=== PATIENT | male | born 1970 | race Caucasian/White ===

== ENCOUNTER 2018-04-29 15:50 | Inpatient (IN) ==
[2018-04-29] MEDS ORDERED: Acetaminophen 325 MG Tablet PO ONE (16:26)
[2018-04-29] MEDS ORDERED: Labetalol HCl Inj 100 MG/20 ML Vial IV.PUSH ONE ×2 (16:26→18:18)
[2018-04-29 16:37] LABS: Baso # (Auto) 0.2 th/mm3 (0.0-0.2); Baso % (Auto) 2.1 % (0.0-2.0); Eos # (Auto) 0.1 th/mm3 (0.0-0.4); Hemoglobin 16.6 gm/dL (13.0-17.0); Lymph # (Auto) 1.8 th/mm3 (1.0-4.8); Lymph % (Auto) 23.5 % (9.0-44.0); Mean Corpuscular HGB Conc 34.6 % (32.0-36.0); Mean Corpuscular Hemoglobin 32.8 pg (27.0-34.0); Mean Corpuscular Volume 94.8 fL (80.0-100.0); Mean Platelet Volume 9.1 fL (7.0-11.0); Mono # (Auto) 0.6 th/mm3 (0.0-0.9); Mono % (Auto) 8.1 % (0.0-8.0); Neut % (Auto) 65.3 % (16.0-70.0); Platelet Count 253 th/mm3 (150-450); Red Blood Count 5.07 mil/mm3 (4.50-5.90); Red Cell Distribution Width 12.5 % (11.6-17.2); White Blood Count 7.7 th/mm3 (4.0-11.0)
[2018-04-29 16:48] LABS: Chloride 101 meq/L (98-107); Potassium 3.4 meq/L (3.5-5.1); Sodium 137 meq/L (136-145)
--- NOTE | 2018-04-29 16:48 | CT ---
EXAM DATE: 04/29/2018 4:44 PM EST AGE/SEX: 47 years / Male INDICATIONS: Head ache. Loss of vision for 20 minutes. CLINICAL DATA: This is the patient's initial encounter. Patient reports that signs and symptoms have been present for 1 day and indicates a pain score of 5/10. MEDICAL/SURGICAL HISTORY: Hypertension. None. RADIATION DOSE: 58.75 CTDI (mGy) COMPARISON: No prior exams available for comparison. TECHNIQUE: CT of the head without contrast. Using automated exposure control and adjustment of the mA and/or kV according to patient size, radiation dose was kept as low as reasonably achievable to ob tain optimal diagnostic quality images. DICOM format image data is available electronically for revi ew and comparison. FINDINGS: Cerebrum: The ventricles are normal for age. No evidence of midline shift, mass lesion, hemorrhage or acute infarction. No extraaxial fluid collections are seen. Posterior Fossa: The cerebellum and brainstem are intact. The 4th ventricle is midline. The cerebe llopontine angle is unremarkable. Extracranial: The visualized portion of the orbits is intact. Skull: The calvaria is intact. No evidence of skull fracture. CONCLUSION: 1. Unremarkable examination. . . Electronically signed by: Salinas Spencer MD Board Certified Radiologist 04/29/2018 4:46 PM EST
[2018-04-29 16:50] LABS: Calcium 9.5 mg/dL (8.5-10.1)
[2018-04-29 16:51] LABS: Anion Gap 9 meq/L (5-15); Blood Urea Nitrogen 11 mg/dL (7-18); Carbon Dioxide 27.1 meq/L (21.0-32.0); Glucose,Random 80 mg/dL (74-106)
--- NOTE | 2018-04-29 16:52 | ED ---
HPI General Chief complaint: Hypertension Stated complaint: high BP/ lost sight for 20 seconds Time Seen by Provider: 04/29/18 16:01 Source: patient and family Mode of arrival: ambulatory Limitations: no limitations History of Present Illness HPI narrative: Patient is a 47-year-old male, past medical history significant for hypertension, compliant with his medications, and a chronic tooth infection for which he is on amoxicillin, who presents with complaint of headache and transient loss of vision. He states that he was relaxed after 4 beers and riding in the car when all of a sudden he lost vision in his left eye. It was painless and lasted approximately 20 seconds. He was able to perceive light but nothing else at that time. It then completely resolved. He did notice a slight mild headache which has gradually worsened since that time. He is not having any vision changes at this time and only complains of a headache. No nausea no vomiting. No eye pain. He has taken all of his antihypertensives today. Onset (ago): minute(s) Location: head and eyes Radiation: non-radiation Severity: moderate Quality: aching Pain Consistency: constant Relieving factors: none Exacerbating factors: none Associated symptoms: Reports other Treatments prior to arrival: Reports none Related Data Home Medications Medication Instructions Recorded Confirmed [facility] 1295 IM DAILY 04/29/18 amoxicillin 500 mg PO TID 04/29/18 04/29/18 tadalafil 5 mg PO DAILY 04/29/18 04/29/18 telmisartan-hydrochlorothiazid 1 tab PO DAILY 04/29/18 04/29/18 testosterone enanthate mg SUBCUT QTUTH 04/29/18 Allergies Allergy/AdvReac Type Severity Reaction Status Date / Time No Known Allergies Allergy Verified 04/29/18 16:19 Review of Systems ROS: all other systems reviewed are negative [facility] Medical History Medical History Hypertension (Acute) Surgical History Surgical History No history of previous surgery (Acute) Social History Social History Substance History: No History of Abuse Smoking Status: Never smoker How Often Do You Have a Drink Containing Alcohol: 4 or more times a week Recent Travel in [facility] within the Last 8 Weeks: No Recent Out of Country Travel within the Last 8 Weeks: No Immunization History Tetanus Immunization: <5 Years Exam Narrative Exam Narrative: GENERAL: Well-appearing male in no acute respiratory distress SKIN: Focused skin assessment warm/dry. No rashes. HEAD: Atraumatic. Normocephalic. EYES: Pupils equal and round. No scleral icterus. No injection or drainage. ENT: No nasal bleeding or discharge. Mucous membranes pink and moist. NECK: Trachea midline. No JVD. CARDIOVASCULAR: Regular rate and rhythm. No murmur appreciated. Intact and equal peripheral pulses. RESPIRATORY: No accessory muscle use. Clear to auscultation. Breath sounds equal bilaterally. GASTROINTESTINAL: Abdomen soft, non-tender, nondistended. Hepatic and splenic margins not palpable. MUSCULOSKELETAL: No obvious deformities. No clubbing. No cyanosis. No edema. NEUROLOGICAL: Awake and alert. No obvious cranial nerve deficits. Motor within normal limits. Normal sensation. No visual field deficits. Normal speech. PSYCHIATRIC: Appropriate mood and affect; insight and judgment normal. Course Initial Documented Vital Signs Temperature 97.5 F L 04/29/18 16:00 Pulse Rate 130 H 04/29/18 16:00 Respiratory Rate 18 04/29/18 16:00 Blood Pressure 225/127 H 04/29/18 16:00 Pulse Oximetry 99 04/29/18 16:00 Last Documented Vital Signs Temperature 97.5 F L 04/29/18 16:00 Pulse Rate 96 H 04/29/18 17:02 Respiratory Rate 16 04/29/18 17:02 Blood Pressure 148/97 H 04/29/18 17:02 Pulse Oximetry 97 04/29/18 17:02 Medical Decision Making [facility] Narrative Medical decision making narrative: Patient is a 47-year-old male who presents with complaint of transient painless vision loss for about 20 seconds earlier today. He has a headache and is hypertensive on arrival but is neurologically intact. Blood pressure was in the 220s on arrival and he was given 10 mg of labetalol after which his blood pressure dropped precipitously down to the 140s and his headache started to improve. CT of the head was unremarkable. Labs were also unremarkable. He will be admitted to the hospital for further evaluation and management for this TIA/amaurosis fugax. Medical Screen Exam Complete: Yes Emergency Medical Condition: Yes Differential Diagnosis Differential Diagnosis: Differential diagnosis includes but is not limited to amaurosis fugax, hypertensive urgency, central retinal artery occlusion. Medical Records Medical records reviewed: Yes I reviewed the patient's medical records. Lab Data Lab results reviewed: Yes I reviewed the patient's lab results. Result diagrams: 04/29/18 16:20 04/29/18 16:20 Lab Results 04/29/18 04/29/18 Range/Units 16:20 16:20 CBC w Diff Auto diff final WBC 7.7 (4.0-11.0) th/mm3 RBC 5.07 (4.50-5.90) mil/mm3 Hgb 16.6 (13.0-17.0) gm/dL Hct 48.0 (39.0-51.0) % MCV 94.8 (80.0-100.0) fL MCH 32.8 (27.0-34.0) pg MCHC 34.6 (32.0-36.0) % RDW 12.5 (11.6-17.2) % Plt Count 253 (150-450) th/mm3 MPV 9.1 (7.0-11.0) fL Neut % (Auto) 65.3 (16.0-70.0) % Lymph % (Auto) 23.5 (9.0-44.0) % [place] % (Auto) 8.1 H (0.0-8.0) % Eos % (Auto) 1.0 (0.0-4.0) % Baso % (Auto) 2.1 H (0.0-2.0) % Neut # (Auto) 5.0 (1.8-7.7) th/mm3 Lymph # (Auto) 1.8 (1.0-4.8) th/mm3 [place] # (Auto) 0.6 (0.0-0.9) th/mm3 Eos # (Auto) 0.1 (0.0-0.4) th/mm3 Baso # (Auto) 0.2 (0.0-0.2) th/mm3 WBC Differential . Differential Comment . Sodium 137 (136-145) meq/L Potassium 3.4 L (3.5-5.1) meq/L Chloride 101 (98-107) meq/L Carbon Dioxide 27.1 (21.0-32.0) meq/L Anion Gap 9 (5-15) meq/L BUN 11 (7-18) mg/dL Creatinine 1.00 (0.60-1.30) mg/dL Estimated GFR 79 L (>89) mL/min Random Glucose 80 (74-106) mg/dL Calcium 9.5 (8.5-10.1) mg/dL Imaging Data Attestation: I personally reviewed and interpreted this imaging study as follows : Radiologist's impression: Head CT 04/29/18 16:26 CONCLUSION: 1. Unremarkable examination. . . Discharge Plan Discharge Disposition Patient Disposition: ED Admit(ED Internal Use Only) Discharge Condition Condition: Stable Discharge Order Discharge Orders: ED Use Only Admit Order (Routine); Ordered 04/29/18 Ordered By: Rose Marie Troy Discharge Details Diagnosis: Amaurosis fugax of left eye, Hypertensive urgency Physicians Team ED Provider: Rose Marie Troy Primary Care Provider: UNKNOWN, Attending Provider: Magdy Bess Discharge Interventions Interventions: Vital Signs Last Done: 04/29/18 17:02 Status ED Status: Admitted Patient
[2018-04-29 16:54] LABS: Glomerular Filtration Rate 79 mL/min (>89)
[2018-04-29] MEDS ORDERED: Dextrose 50% in Water 50 ML Vial IV.PUSH PRN (17:40)
--- NOTE | 2018-04-29 18:09 | P.HPIM ---
History of Present Illness Primary Care Physician: UNKNOWN Chief Complaint: Loss of vision in left eye History of Present Illness: 47-year-old man with a past medical history of hypertension currently on Telmisartan-HCTZ presented to the hospital for evaluation of sudden loss of vision in the left eye and a sensation of seeing stars in that left eye. Patient states, secondary to a history of chronic tooth infection he was at the dental office when he first noted a transient loss of vision in the left eye associated with headache. However, later on when he was driving the transient loss of vision in the left eye return without any improvement and he had a feeling of seen*and eyes. Denies any slurred speech. There was no upper or lower extremity weakness or paresthesia. Patient states the vision change and loss was painless. He has no chest pain or shortness of breath. When he initially presented in the ED, patient has BP elevated in the range of 225/127, and states this may have been secondary to whitecoat hypertension however it improved with labetalol push x1. Inpatient Certification Inpatient Certification: I certify that the inpatient services were ordered in accordance with Medicare regulations governing the order. This includes certification that hospital inpatient services are reasonable and necessary and in the case of services not specified as inpatient-only under 42 CFR 419.22(n), that they are appropriately provided as inpatient services in accordance to with the 2-midnight benchmark under 43 CFR 412.3(e) Estimated Total Length of Stay (Days): 2 Plans for Post Hospital Care: Not yet determined Review of Systems Review of Systems: all other systems reviewed are negative [facility] Medical History Medical History Hypertension (Acute) Surgical History Surgical History No history of previous surgery (Acute) Social History Social History Substance History: No History of Abuse Smoking Status: Never smoker How Often Do You Have a Drink Containing Alcohol: 4 or more times a week Recent Travel in [facility] within the Last 8 Weeks: No Recent Out of Country Travel within the Last 8 Weeks: No Immunization History Tetanus Immunization: <5 Years Medications and Allergies Allergies Allergy/AdvReac Type Severity Reaction Status Date / Time No Known Allergies Allergy Verified 04/29/18 16:19 Home Medications Medication Instructions Recorded Confirmed Type c 1295 IM DAILY 04/29/18 History amoxicillin 500 mg PO TID 04/29/18 04/29/18 History tadalafil 5 mg PO DAILY 04/29/18 04/29/18 History telmisartan-hydrochlorothiazid 1 tab PO DAILY 04/29/18 04/29/18 History testosterone enanthate mg SUBCUT QTUTH 04/29/18 History Active Medications: Active Medications Aspirin (Aspirin) 325 mg PO DAILY MAIK Dextrose (D50w Vial) 50 ml IV.PUSH UNSCH PRN PRN Reason: PER HYPOGLYCEMIA PROTOCOL Enalaprilat (Vasotec Inj) 1.25 mg IV.PUSH Q4H PRN PRN Reason: For SBP > 220 or DBP > 120 Glucagon (Glucagon Inj) 1 mg OTHER UNSCH PRN PRN Reason: for Hypoglycemia Protocol Insulin Aspart (Novolog Insulin Correctional Sugar Inj) 0 unit SQ ACHS MAIK; Protocol Sodium Chloride (Ns Flush) 2 ml IV.FLUSH PRN PRN PRN Reason: FLUSH AFTER USING IV ACCESS Sodium Chloride (Ns Flush) 2 ml IV.FLUSH BID MAIK Sodium Chloride (Ns Flush) 2 ml IV.FLUSH PRN PRN PRN Reason: FLUSH AFTER USING IV ACCESS Physical Exam Vital signs: Vital Signs 04/29/18 16:00 04/29/18 16:13 04/29/18 16:39 Temperature 97.5 F L Pulse Rate 130 H 115 H 103 H Respiratory Rate 18 16 16 Blood Pressure 225/127 H 212/114 H 210/104 H Pulse Oximetry 99 99 99 04/29/18 16:41 04/29/18 17:02 Temperature Pulse Rate 96 H Respiratory Rate 16 Blood Pressure 148/97 H Pulse Oximetry 99 97 Intake & Output 04/28/18 04/29/18 04/29/18 18:59 06:59 18:59 Weight 87.3 kg Narrative: GENERAL: NAD SKIN: Warm and dry. HEAD: Atraumatic. Normocephalic. EYES: Pupils equal and round. No scleral icterus. No injection or drainage. ENT: No nasal bleeding or discharge. Mucous membranes pink and moist. NECK: Trachea midline. No JVD. CARDIOVASCULAR: Regular rate and rhythm. RESPIRATORY: No accessory muscle use. Clear to auscultation. Breath sounds equal bilaterally. GASTROINTESTINAL: Abdomen soft, non-tender, nondistended. Hepatic and splenic margins not palpable. MUSCULOSKELETAL: Extremities without clubbing, cyanosis, or edema. No obvious deformities. NEUROLOGICAL: Awake and alert. No obvious cranial nerve deficits. Motor grossly within normal limits. Five out of 5 muscle strength in the arms and legs. Normal speech. PSYCHIATRIC: Appropriate mood and affect; insight and judgment normal. Results Labs CBC & Chem 7: 04/29/18 16:20 04/29/18 16:[address] 04/29/18 16:26 CONCLUSION: 1. Unremarkable examination. . . Caprini VTE Risk Assessment Caprini VTE Risk Assessment: No/Low Risk (score <= 1) Caprini Risk Assessment Model: Point Value = 1 Point Value = 2 Point Value = 3 Point Value = 5 Age 41-60 Minor surgery BMI > 25 kg/m2 Swollen legs Varicose veins or History of unexplained or recurrent spontaneous Oral contraceptives or hormone replacement Sepsis (< 1 month) Serious lung disease, including pneumonia (< 1 month) Abnormal pulmonary function Acute myocardial infarction Congestive heart failure (< 1 month) History of inflammatory bowel disease Medical patient at bed rest Age 61-74 Arthroscopic surgery Major open surgery (> 45 min) Laparoscopic surgery (> 45 min) Malignancy Confined to bed (> 72 hours) Immobilizing plaster cast Central venous access Age >= 75 History of VTE Family history of VTE Factor V Leiden Prothrombin [id number] Lupus anticoagulant Anticardiolipin antibodies Elevated serum homocysteine Heparin-induced thrombocytopenia Other congenital or acquired thrombophilia Stroke (< 1 month) Elective arthroplasty Hip, pelvis, or leg fracture Acute spinal cord injury (< 1 month) Prophylaxis Regimen: Total Risk Factor Score Risk Level Prophylaxis Regimen 0-1 Low Early ambulation 2 Moderate Order ONE of the following: *Sequential Compression Device (SCD) *Heparin 5000 units SQ BID 3-4 Higher Order ONE of the following medications: *Heparin 5000 units SQ TID *Enoxaparin/Lovenox 40 mg SQ daily (WT < 150 kg, CrCl > 30 mL/min) *Enoxaparin/Lovenox 30 mg SQ daily (WT < 150 kg, CrCl > 10-29 mL/min) *Enoxaparin/Lovenox 30 mg SQ BID (WT < 150 kg, CrCl > 30 mL/min) AND/OR *Sequential Compression Device (SCD) 5 or more Highest Order ONE of the following medications: *Heparin 5000 units SQ TID (Preferred with Epidurals) *Enoxaparin/Lovenox 40 mg SQ daily (WT < 150 kg, CrCl > 30 mL/min) *Enoxaparin/Lovenox 30 mg SQ daily (WT < 150 kg, CrCl > 10-29 mL/min) *Enoxaparin/Lovenox 30 mg SQ BID (WT < 150 kg, CrCl > 30 mL/min) AND *Sequential Compression Device (SCD) Assessment and Plan Plan 47-year-old man with Hypertensive malignancy Labetalol 10 mg IV x1 in the ED with significant improvement of BP Resume oral antihypertensive medication when permissive hypertension is discontinue Amaurosis fugax TIA versus ischemic CVA Treat per ischemic stroke protocol Initial head CAT scan unremarkable Check brain MRI/MRA and neck CTA Check 2D echo, lipid profile and hemoglobin A1c Start aspirin 325 mg daily Allow for permissive hypertension Neurology consultation pending Hypertension Allow for permissive hypertension DVT prophylaxis: Bilateral SCDs
[2018-04-29 18:33] LABS: Activated Partial Thrombo Time 28.5 sec (23.4-31.7); Prothrombin Time 9.9 sec (9.8-11.6)
[2018-04-29 18:35] LABS: Creatine Kinase 162 U/L (39-308)
--- NOTE | 2018-04-29 18:41 | CT ---
EXAM DATE: 04/29/2018 6:31 PM EST AGE/SEX: 47 years / Male INDICATIONS: Confusion and difficulty speaking. Right sided facial droop after CTA Neck. CLINICAL DATA: This is the patient's subsequent encounter. Patient reports that signs and symptoms h ave been present for 1 day and indicates a pain score of 0/10. MEDICAL/SURGICAL HISTORY: Hypertension. None. RADIATION DOSE: 57.89 CTDI (mGy) COMPARISON: HPO, CTA NECK W CONTRAST W 3D, 04/29/2018. . TECHNIQUE: CT of the head without contrast. Using automated exposure control and adjustment of the mA and/or kV according to patient size, radiation dose was kept as low as reasonably achievable to ob tain optimal diagnostic quality images. DICOM format image data is available electronically for revi ew and comparison. FINDINGS: Cerebrum: There is no acute intracranial hemorrhage, mass effect or shift. No hydrocephalus. There i s some residual contrast. See CTA report. Posterior Fossa: The cerebellum and brainstem are intact. The 4th ventricle is midline. The cerebe llopontine angle is unremarkable. Extracranial: The visualized portion of the orbits is intact. Skull: The calvaria is intact. No evidence of skull fracture. CONCLUSION: 1. No acute intracranial abnormalities. 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 Report was called by Dr. Cast to Dr. Villatoro at 6:30 PM. Electronically signed by: Clayton Cast MD Board Certified Radiologist 04/29/2018 6:40 PM EST
--- NOTE | 2018-04-29 18:56 | CT ---
EXAM DATE: 04/29/2018 6:47 PM EST AGE/SEX: 47 years / Male INDICATIONS: Elevated blood pressure and temporary loss of vision. Evaluate for thrombosis. CLINICAL DATA: This is the patient's subsequent encounter. Patient reports that signs and symptoms h ave been present for 1 day and indicates a pain score of 0/10. MEDICAL/SURGICAL HISTORY: Hypertension. None. RADIATION DOSE: 42.78 CTDI (mGy) COMPARISON: HPO, CTA STROKE ALERT NECK W CONTRAST W 3D, 04/29/2018. . TECHNIQUE: Volumetric scanning was performed using a multirow detector CT scanner during bolus infus ion of 75 ml Omnipaque 350 (iohexol) nonionic water-soluble contrast as a single exam dose. The da ta was postprocessed with a variety of visualization algorithms including full-volume maximum intensi ty projection, multiplanar sliding thin-slab reformation, curved-planar reformation, and surface-rend ering techniques. Using automated exposure control and adjustment of the mA and/or kV according to p atient size, radiation dose was kept as low as reasonably achievable to obtain optimal diagnostic gabriela lity images. DICOM format image data is available electronically for review and comparison. FINDINGS: Aortic Arch: There is a three-vessel origin of the great vessels from the aorta. No evidence of ost ial narrowing Right Carotid: The common carotid artery is intact. The carotid bulb has a normal configuration wit hout ulceration or narrowing. The internal carotid artery lumen is smooth without stenosis. The ext ernal carotid artery is intact. Left Carotid: There is acute occlusion of the left ICA. The occlusion begins approximately 2 cm ceph alad to the origin and extends through the intracavernous carotid artery. There is good reconstitutio n of the supraclinoid ICA via anterior communicating artery and posterior communicating artery collat eralization. See the CT of the brain reported separately. Vertebrals: The vertebral arteries have a symmetric diameter. No stenotic lesions are seen. Percent stenosis is calculated using the diameter of the stenotic region over the diameter of the nor mal distal internal carotid artery. CONCLUSION: 1. 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 2. The right carotid artery and both vertebral arteries are patent. Electronically signed by: Valerio Hoyos MD Board Certified Radiologist 04/29/2018 6:55 PM EST
[2018-04-29 19:13] LABS: C-Reactive Protein 1.64 mg/dL (0.00-0.30)
[2018-04-29] MEDS: Heparin Drip 25,000 UNIT/250 ML BAG IV.CONT PRN (19:39)
[2018-04-29] MEDS: Sod Chloride 0.9% Inj 1,000 ML IV.CONT SCH (19:46)
[2018-04-29] MEDS ORDERED: Sodium Chlor 0.9% Inj 250 ML IV.SIG SCH (20:00)
[2018-04-29 20:02] LABS: Bilirubin,Urine Negative (Negative); Clarity,Urine Clear (Clear); Color,Urine Yellow (Yellw/Straw); Glucose,Urine (UA) Negative (Negative); Leukocyte Esterase,Urine Negative (Negative); Nitrite,Urine Negative (Negative); PH,Urine 7.5 (5.0-8.5); Specific Gravity,Urine Less/Equal 1.005 (1.002-1.035); Urobilinogen,Urine 0.2 mg/dL (Less than 2)
[2018-04-29 20:06] LABS: Bacteria,Urine Rare /hpf; WBC,Urine 0-5 /hpf (0-5)
[2018-04-29 20:09] LABS: Cannabinoid Screen,Urine Neg (Neg)
[2018-04-29 20:17] LABS: Amphetamine Screen,Urine Neg (Neg)
[2018-04-29 20:19] LABS: Barbiturate Screen,Urine Neg (Neg)
[2018-04-29 20:22] LABS: Cocaine Screen,Urine Neg (Neg)
[2018-04-29 20:37] LABS: Free T4 (Free Thyroxine) 0.96 ng/dL (0.76-1.46)
[2018-04-29 20:42] LABS: Opiate Screen,Urine Neg (Neg)
--- NOTE | 2018-04-29 21:09 | MB ---
cc: West Villatoro MD, Saud E MD DATE: 04/29/2018 HISTORY OF PRESENT ILLNESS: The patient is a 47-year-old right-handed man with hypertension without other significant past medical history, has had a recent tooth infection; however, had a fever last , which was approximately 4 days ago. Nevertheless earlier today he had an episode of vision loss in the left eye, which was transient and came into the emergency room. His exam was normal. Went down the CAT scan and came back and a stroke alert was called at approximately 6:30 tonight due to he was aphasic and a right facial droop and got on the Glofox-neuro and his aphasia had cleared. REVIEW OF SYSTEMS: He denies any diabetes, hypercholesterolemia, NV, CABG, cardiac arrhythmia, stent, angioplasty, atrial fibrillation, Coumadin, renal, hepatic or pulmonary disease, thyroid disease, lupus, ulcer, cancer, seizure or stroke. SOCIAL HISTORY: Nonsmoker, has about 15 glasses of wine a week. Lives with his . FAMILY HISTORY: Negative for cancer, seizure, stroke. MEDICATIONS: He does not take an aspirin a day, not on any blood thinners. He has been on hydrochlorothiazide, telmisartan, tadalafil, amoxicillin recently, some testosterone. PHYSICAL EXAMINATION: VITAL SIGNS: Sinus rhythm as high as 210/104, as low as 148/97, 16, 140, afebrile in the CAT scanner on Gl[employer]. NEUROLOGIC: Visual ross are full. Face is symmetric. Tongue was midline. He had normal strength in upper and lower extremities bilaterally. Speech is fluent. He is not aphasic. He follows commands well. He can repeat normally and gives a good history. LABORATORY DATA: CBC is normal. White count is normal. Basic metabolic profile is normal. Troponins negative. CPK is normal. Coags are normal. CAT scan of the brain was negative. CTA of the neck shows an occlusion of the left internal carotid artery with some reconstitution well of the middle cerebral artery. CAT scan of the brain negative including post-episode. Looking at the CTA, it does appear he has good flow in the right distal middle cerebral artery but on the left it appears that he probably has an occlusion distally in the left M2 region with poor flow in the branches distally. IMPRESSION: He has had 2 more spells of the aphasia. I talked with Dr. Negron, and also Dr. Brewer up in [facility]. Considering the problem, it is probably more of a hemodynamic problem at this point and Dr. Brewer did not think the IV TPA probably would get through to that clot region. As such, we decided to put him on IV heparin. Keep his head a bit flat, IV fluids, try to get his collaterals to kick in regard. This certainly is a possibility that the occlusion could have occurred about 3 hours prior to his admission here when he had the transient monocular blindness and probably did at that time. We will bring him up to the [facility], do a CT perfusion. I also talked with Dr. Hoyos, the interventional radiologist. He did not think trying to go up and pull the clot out of the carotid was a good idea, it would just make him worse. MD KRISTYN Agee/claus/erika , 07:21 PM , 07:30 PM
[2018-04-29] MEDS ORDERED: Gadobutrol PF 10 MMOL/10 ML Vial (for RAD) IV.SIG ONE (21:26)
--- NOTE | 2018-04-29 21:50 | MR ---
EXAM DATE: 04/29/2018 9:41 PM EST AGE/SEX: 47 years / Male INDICATIONS: CVA. Left eye blindness for about one minute. CLINICAL DATA: This is the patient's initial encounter. Patient reports that signs and symptoms have been present for 1 day and indicates a pain score of 2/10. MEDICAL/SURGICAL HISTORY: Hypertension. . Hand sx. COMPARISON: No prior exams available for comparison. TECHNIQUE: Multiplanar, multisequence examination of the brain was performed without and with 9 ml Ga davist (gadobutrol) contrast as a single exam dose. FINDINGS: There is a faint area of signal abnormality in the left hemisphere predominantly involving the left p eriventricular white matter in the posterior left frontal region measuring up to about 2.2 cm in diam eter characteristic of an acute infarct. There is no mass effect or shift. No hydrocephalus. No other areas of acute infarction identified. No associated hemorrhage is seen. No abnormal enhancement is seen postcontrast. No sellar mass. CONCLUSION: 1. Small infarct on the left measuring up to around 2.2 cm in diameter involving predominantly the d eep white matter of the posterior left frontal lobe extending towards the motor cortex. No associated hemorrhage or mass effect. No abnormal enhancement. Electronically signed by: Clayton Cast MD Board Certified Radiologist 04/29/2018 9:49 PM EST
--- NOTE | 2018-04-29 21:54 | MR ---
EXAM DATE: 04/29/2018 9:41 PM EST AGE/SEX: 47 years / Male INDICATIONS: CVA. Left eye blindness. CLINICAL DATA: This is the patient's initial encounter. Patient reports that signs and symptoms have been present for 1 day and indicates a pain score of 3/10. MEDICAL/SURGICAL HISTORY: Hypertension. . Hand sx. COMPARISON: HPO, MR HEAD W & W/O CONTRAST, 04/29/2018. . TECHNIQUE: 3D [id number] MRA was performed. Source images, multiplanar STS MIP, and 3D volum e MIP reconstructions were reviewed. FINDINGS: There is occlusion of the left internal carotid artery. The visualized portions of the right internal carotid artery are patent. The bilateral anterior and middle cerebral arteries are patent without si gnificant stenosis or occlusion. Anterior communicating artery is patent. There are patent posterior communicating arteries bilaterally. There is asymmetrically decreased opacification of the proximal p ortion of the right posterior cerebral artery. The distal branch of the right posterior cerebral tom ry is patent. The left posterior cerebral artery fills via a patent basilar artery. The uppermost por tions of the vertebral arteries are patent. No aneurysm formation is noted. CONCLUSION: 1. Occluded left internal carotid artery. 2. Patent anterior and middle cerebral arteries bilaterally. 3. Decreased opacification of the proximal portion of the right posterior cerebral artery compared t o the left but normal filling of the distal branch of the right posterior cerebral artery. 4. Patent posterior communicating arteries bilaterally. Electronically signed by: Matty Saxena MD Board Certified Radiologist 04/29/2018 9:53 PM EST
--- NOTE | 2018-04-29 22:20 | CT ---
EXAM DATE: 04/29/2018 10:03 PM EST AGE/SEX: 47 years / Male INDICATIONS: Stroke alert; right sided facial droop, confusion, and dysphasia. CLINICAL DATA: This is the patient's initial encounter. Patient reports that signs and symptoms have been present for 1 day and indicates a pain score of 0/10. MEDICAL/SURGICAL HISTORY: Hypertension. None. RADIATION DOSE: 217.58 CTDI (mGy) ; High dose protocol COMPARISON: HPO, MRA HEAD W/O CONTRAST, 04/29/2018. . TECHNIQUE: CT of the head after intravenous administration of 49 ml Visipaque 320 (iodixanol) nonio talib water-soluble contrast as a single exam dose. Using automated exposure control and adjustment of the mA and/or kV according to patient size, radiation dose was kept as low as reasonably achievable to obtain optimal diagnostic quality images. DICOM format image data is available electronically for review and comparison. FINDINGS: 1. CBF (<30%) Volume (ml): 0 2. Perfusion (Tmax>6.0s) Volume (ml): 98 ml 3. Mismatch Volume (ml) (Tmax>6.0 - CBF): 98 ml CONCLUSION: Physiological brain perfusion parameters with RAPID analysis as above. The decision for consideration of therapy is multi factorial and multi disciplinary relying on subjec tive and objective clinical data. This data is not construed or intended to be the sole determinant of treatment eligibility. Electronically signed by: Clayton Cast MD Board Certified Radiologist 04/29/2018 10:19 PM EST
[2018-04-29] MEDS: Insulin NovoLOG Aspart Correctional Sugar Inj SQ SCH (22:30)
--- NOTE | 2018-04-29 22:57 | P.CONCC ---
History of Present Illness Service: Critical care medicine Consult date: 04/30/18 Requesting Physician: Rose Marie Troy Reason for Consult: stroke Primary Care Provider: UNKNOWN Chief Complaint: Loss of vision in left eye History of Present Illness: This is a 47-year-old male who is otherwise previously healthy with the exception of a diagnosis of low testosterone. He presented with new onset visual loss which resolved spontaneously. He presented to [place] emergency department. He was diagnosed with amaurosis fugax. While he was in the emergency department, he became acutely aphasic. Stroke alert was called. CT head was negative for acute bleed. 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 At that time symptoms initially resolved. Discussion between Dr. Villatoro and Dr. Hoyos with interventional radiology was that any attempt at endovascular intervention for the left ICA occlusion would likely shower emboli and because of far worse neurologic devastating injury and conservative management. He was started on heparin infusion. He was transferred to [facility] in [place]. CT perfusion demonstrates a significant mismatch between infarct and at risk brain tissue. On my evaluation, on arrival to the intensive care unit at [facility], the patient has persistent mild expressive aphasia. Receptive leg which is intact. He does complain of new right arm sensory loss. He has good bilateral strength. I again discussed the case with Dr. Villatoro and Dr. Hoyos, who both agree that conservative management is warranted. After discussion with Dr. Villatoro, goal blood pressure goals are 180-220 systolic. Review of systems for this patient is very difficult due to his aphasia, but limited review of systems is negative for chest pain, shortness of breath, fever, chills. Review of Systems All other systems reviewed negative except as stated in HPI (Limited by aphasia) PMFSH - History History Provided By: Patient, Significant Other - Medical History Medical History: Medical History (Last Reviewed 04/30/18 @ 00:06 by Chriss Iglesias MD) Hypertension - Surgical History Surgical History: Surgical History (Last Reviewed 04/30/18 @ 00:06 by Chriss Iglesias MD) No history of previous surgery - Family History Family History: Family History (Last Reviewed 04/30/18 @ 00:06 by Chriss Iglesias MD) Other Diabetes - Social History I have reviewed the patient's Social History: Yes - Tobacco History Second Hand Smoke Exposure: No Smoking Status: Never smoker - Alcohol History How Often Do You Have a Drink Containing Alcohol: 4 or more times a week - Substance Use History Substance History: No History of Abuse - Travel History Recent Travel in the [place] Within the Last 8 Weeks: No Recent Travel Out of the Country Within the Last 8 Weeks: No - Immunization History Tetanus Immunization: Unable to Assess Hx Influenza Vaccine This Season: No Medications and Allergies Active Medications: Active Medications Dextrose (D50w Vial) 50 ml IV.PUSH UNSCH PRN PRN Reason: PER HYPOGLYCEMIA PROTOCOL Enalaprilat (Vasotec Inj) 1.25 mg IV.PUSH Q4H PRN PRN Reason: For SBP > 220 or DBP > 120 Last Admin: 04/29/18 19:46 Dose: 1.25 mg Glucagon (Glucagon Inj) 1 mg OTHER UNSCH PRN PRN Reason: for Hypoglycemia Protocol Sodium Chloride (Ns Inj) 1,000 mls @ 70 mls/hr IV.CONT .[id number] [facility] Last Infusion: 04/29/18 20:17 Dose: 70 mls/hr Heparin Sodium/Dextrose (Heparin/D5w 25,000 U/250 Ml) 25,000 unit in 250 mls @ 10 mls/hr IV.CONT TITRATE PRN; Protocol PRN Reason: Per Protocol Last Titration: 04/29/18 20:18 Dose: 1,000 units/hr, 10 mls/hr Insulin Aspart (Novolog Insulin Correctional Sugar Inj) 0 unit SQ ACHS [facility]; Protocol Last Admin: 04/29/18 22:30 Dose: Not Given Sodium Chloride (Ns Flush) 2 ml IV.FLUSH BID [facility] Sodium Chloride (Ns Flush) 2 ml IV.FLUSH PRN PRN PRN Reason: FLUSH AFTER USING IV ACCESS Warfarin Sodium (Coumadin) 5 mg PO DAILY@1600 [facility] Allergies Allergy/AdvReac Type Severity Reaction Status Date / Time No Known Allergies Allergy Verified 04/29/18 16:19 Home Medications Medication Instructions Recorded Confirmed Type Cjc 1295 IM DAILY 04/29/18 History amoxicillin 500 mg PO TID 04/29/18 04/29/18 History tadalafil 5 mg PO DAILY 04/29/18 04/29/18 History telmisartan-hydrochlorothiazid 1 tab PO DAILY 04/29/18 04/29/18 History testosterone enanthate mg SUBCUT QTUTH 04/29/18 History Physical Exam Vital signs: Vital Signs 04/29/18 16:00 04/29/18 16:13 04/29/18 16:39 Temperature 36.4 C L Pulse Rate 130 H 115 H 103 H Respiratory Rate 18 16 16 Blood Pressure 225/127 H 212/114 H 210/104 H Pulse Oximetry 99 99 99 04/29/18 16:41 04/29/18 17:02 04/29/18 18:17 Temperature Pulse Rate 96 H 140 H Respiratory Rate 16 16 Blood Pressure 148/97 H 173/135 H Pulse Oximetry 99 97 04/29/18 18:47 04/29/18 19:53 04/29/18 20:09 Temperature Pulse Rate 126 H 122 H Respiratory Rate 16 18 Blood Pressure 265/106 H 223/122 H Pulse Oximetry 97 98 98 04/29/18 20:13 Temperature Pulse Rate 120 H Respiratory Rate 18 Blood Pressure 207/114 H Pulse Oximetry 100 Intake & Output 04/29/18 04/29/18 04/30/18 06:59 18:59 06:59 Intake Total 325 / 325 Balance 325 / 325 Weight 87.3 kg 83.4 kg Intake: IV 325 / 325 Heparin/D5W 25,000 U/250 mL 25, 40 / 40 000 unit In 250 ml @ As Directed 10 mls/hr IV.CONT TITRATE PRN Rx#:[id number] NS Inj 1,000 ML @ 70 mls/hr IV. 35 / 35 CONT .[id number] [facility] Rx#: [id number] NS Inj 250 ML @ 500 mls/hr IV. 250 / 250 SIG BOLUS [facility]IK Rx#:[id number] Other: Weight On Admission 83.4 kg Narrative: GENERAL: Middle-age male, lying in bed, in distress due to his neuro deficits HEENT: Noted right facial droop. Atraumatic. Pupils 3 mm, equal, round, reactive, conjugate. Mucous membranes are moist NECK: Trachea is midline. There is no JVD. CHEST: Equal chest rise. Room air. No accessory muscle use. CARDIOVASCULAR: Normal rate, regular rhythm. Sinus by telemetry. Pressures 205 systolic on my evaluation. ABDOMEN: Soft, nontender, nondistended. No guarding. MUSCULOSKELETAL: Pulses 2+. No peripheral edema. NEUROLOGICAL: RASS 0. CAM -. GCS 15. Noted mild expressive aphasia. Receptive language intact. Noted right facial droop. The remainder the cranial nerves are intact. Musculoskeletal strength 5/5 in bilateral upper and lower extremities both proximal and distal muscle groups. Sensation is grossly decreased in the right upper extremity, but grossly normal in the remainder of the extremities. Noted mild dysarthria in addition to the aphasia. Gait not assessed. Assessment and Plan - Assessment and Plan Plan: Assessment: 47-year-old male with acute left ICA thrombosis and associated CVA. Critically ill. Admit to ICU. Maintain cerebral perfusion with goal systolic blood pressure 180 - 220 mmHg. If he clinically decompensates, will repeat CTA head neck, but agree that likely any intervention will worsen his neurologic outcome. He is critically ill with high risk for devastating stroke. Acute CVA Acute dysarthria Acute sensory deficit RUE Acute aphasia Acute Left ICA occlusion - neurology: Dr. Villatoro consulted - IR: Dr. Hoyos consulted and following peripherally - 2d echo - lipids - a1c - statin - anticoag work up initiated - PT/OT/ST - nursing bedside swallow eval - script coordinator consult - prvf - [facility] flat - telemetry - heparin drip - q1h neuro checks Hypertensive Emergency - permissive hypertension, goal sbp 180 - 220 mmHg - phenylephrine and nicardipine infusions at needed for goal sbp. SSI SCDs Admit to ICU. Critically ill. This patient remains critically ill with one or more organ systems which are or may become a threat to life. I have spent in excess of 48 minutes discontinuously in the care and management of this patient. This time is exclusive of procedures, and includes, but is not limited to, evaluation of the patient, review of the medical record, discussions with family, consultants, nursing staff, or respiratory therapy, and documentation in the medical record.
[2018-04-29] MEDS ORDERED: Potassium Chloride Liq 20 MEQ/15 ML UDC PO PRN ×2 (23:06)
[2018-04-29] MEDS ORDERED: Acetaminophen 325 MG Tablet PO PRN (23:06)
[2018-04-29] MEDS ORDERED: Magnesium Oxide 400 MG Tablet PO PRN (23:06)
[2018-04-29] MEDS ORDERED: Potassium Phosphate Inj 30 MMOL in Sodium Chlor 0.9% Inj 250 ML IV.SIG PRN (23:06)
[2018-04-29] MEDS ORDERED: Sodium Phosphate Inj 30 MMOL in Sodium Chlor 0.9% Inj 250 ML IV.SIG PRN (23:06)
[2018-04-29] MEDS ORDERED: Magnesium Sulfate Inj 4 GM in Sodium Chlor 0.9% Inj 92 ML IV.SIG PRN (23:06)
[2018-04-29] MEDS ORDERED: Potassium Chlor 40 mEq Premix 40 MEQ/100 ML PIGGYBACK IV.SIG PRN ×2 (23:06)
[2018-04-29] MEDS ORDERED: Potassium Phosphate 500 MG Soluble Tablet PO PRN ×2 (23:06)
[2018-04-29] MEDS ORDERED: Potassium Chlor 20 mEq Premix 20 MEQ/100 ML PIGGYBACK IV.SIG PRN (23:06)
[2018-04-29] MEDS ORDERED: Magnesium Sulfate Inj 2 GM in Sodium Chlor 0.9% Inj 96 ML IV.SIG PRN (23:06)
[2018-04-29] MEDS ORDERED: niCARdipine Inj 25 MG in Sodium Chlor 0.9% Inj 240 ML IV.CONT PRN (23:10)
[2018-04-30] MEDS: Potassium Chlor 20 mEq Premix 20 MEQ/100 ML PIGGYBACK IV.SIG PRN ×2 (00:56→03:30)
[2018-04-30] MEDS: Chlorhexidine Gluconate 2% 1 Pack (2 Cloths) TOPICAL SCH (03:30)
[2018-04-30] MEDS ORDERED: Chlorhexidine Gluconate 2% 1 Pack (2 Cloths) TOPICAL PRN (04:00)
[2018-04-30 05:07] LABS: Baso # (Auto) 0.1 th/mm3 (0.0-0.2); Baso % (Auto) 0.7 % (0.0-2.0); Eos % (Auto) 0.5 % (0.0-4.0); Hematocrit 47.3 % (39.0-51.0); Hemoglobin 16.4 gm/dL (13.0-17.0); Lymph # (Auto) 1.6 th/mm3 (1.0-4.8); Lymph % (Auto) 19.1 % (9.0-44.0); Mean Corpuscular HGB Conc 34.6 % (32.0-36.0); Mean Corpuscular Hemoglobin 33.7 pg (27.0-34.0); Mean Corpuscular Volume 97.3 fL (80.0-100.0); Mean Platelet Volume 8.9 fL (7.0-11.0); Mono # (Auto) 0.8 th/mm3 (0.0-0.9); Mono % (Auto) 9.2 % (0.0-8.0); Neut % (Auto) 70.5 % (16.0-70.0); Platelet Count 228 th/mm3 (150-450); Red Blood Count 4.86 mil/mm3 (4.50-5.90); Red Cell Distribution Width 13.3 % (11.6-17.2); White Blood Count 8.5 th/mm3 (4.0-11.0)
[2018-04-30 05:25] LABS: Anion Gap 8 meq/L (5-15); Blood Urea Nitrogen 8 mg/dL (7-18); Calcium 8.2 mg/dL (8.5-10.1); Carbon Dioxide 25.2 meq/L (21.0-32.0); Chloride 107 meq/L (98-107); Glomerular Filtration Rate Greater Than 89 mL/min (>89); Glucose,Random 99 mg/dL (74-106); Magnesium 1.9 mg/dL (1.5-2.5); Phosphorus 2.5 mg/dL (2.5-4.9); Potassium 3.8 meq/L (3.5-5.1); Sodium 140 meq/L (136-145)
[2018-04-30 07:19] LABS: Prothrombin Time 10.2 sec (9.8-11.6)
[2018-04-30] MEDS ORDERED: Insulin NovoLIN Regular Correctional Sugar Inj SQ SCH (08:00)
--- NOTE | 2018-04-30 08:14 | P.PNNEU ---
Subjective Active Medications: Active Medications Acetaminophen (Tylenol) 650 mg PO Q6H PRN PRN Reason: TEMPERATURE > 101 F Albuterol (Duoneb Neb (Prn)) 1 ampul NEB Q2HR NEB PRN PRN Reason: WHEEZING Atorvastatin Calcium (Lipitor) 80 mg PO DAILY [facility] Chlorhexidine Gluconate (Chlorhexidine 2% Cloth) 3 pack TOPICAL DAILY@0400 [facility] Stop: 05/05/18 03:59 Last Admin: 04/30/18 03:30 Dose: 3 pack Chlorhexidine Gluconate (Chlorhexidine 2% Cloth) 3 pack TOPICAL DAILY@0400 PRN PRN Reason: Extra cloth needed Stop: 05/05/18 03:59 Dextrose (D50w Vial) 50 ml IV.PUSH UNSCH PRN PRN Reason: PER HYPOGLYCEMIA PROTOCOL Enalaprilat (Vasotec Inj) 1.25 mg IV.PUSH Q4H PRN PRN Reason: For SBP > 220 or DBP > 120 Last Admin: 04/29/18 19:46 Dose: 1.25 mg Famotidine (Pepcid) 20 mg PO BID [facility] Glucagon (Glucagon Inj) 1 mg OTHER UNSCH PRN PRN Reason: for Hypoglycemia Protocol Sodium Chloride (Ns Inj) 1,000 mls @ 70 mls/hr IV.CONT .[id number] [facility] Last Infusion: 04/29/18 20:17 Dose: 70 mls/hr Heparin Sodium/Dextrose (Heparin/D5w 25,000 U/250 Ml) 25,000 unit in 250 mls @ 10 mls/hr IV.CONT TITRATE PRN; Protocol PRN Reason: Per Protocol Last Titration: 04/30/18 07:26 Dose: 1,100 units/hr, 11 mls/hr Potassium Chloride (Kcl 40 Meq Premix Inj) 40 meq in 100 mls @ 25 mls/hr IV.SIG Q2H PRN PRN Reason: For Potassium 2.8 - 3.2 mEq/L Potassium Chloride (Kcl 20 Meq Premix Inj) 20 meq in 100 mls @ 50 mls/hr IV.SIG Q2H PRN PRN Reason: For Potassium 3.3 - 3.5 mEq/L Last Infusion: 04/30/18 05:28 Dose: Infused Potassium Chloride (Kcl 40 Meq Premix Inj) 40 meq in 100 mls @ 25 mls/hr IV.SIG UNSCH PRN PRN Reason: For Potassium 3.3 - 3.5 mEq/L Sodium Phosphate 30 mmol/ (Sodium Chloride) 260 mls @ 42 mls/hr IV.SIG UNSCH PRN PRN Reason: For Phosphorus < 2.5 mg/dL Potassium Phosphate 30 mmol/ (Sodium Chloride) 260 mls @ 42 mls/hr IV.SIG UNSCH PRN PRN Reason: SEE LABEL COMMENTS Magnesium Sulfate 4 gm/ Sodium (Chloride) 100 mls @ 50 mls/hr IV.SIG UNSCH PRN PRN Reason: For Magnesium 0.9 - 1.1 mg/dL Potassium Chloride (Kcl 20 Meq Premix Inj) 20 meq in 100 mls @ 50 mls/hr IV.SIG Q2H PRN PRN Reason: For Potassium 2.8 - 3.2 mEq/L Magnesium Sulfate 2 gm/ Sodium (Chloride) 100 mls @ 50 mls/hr IV.SIG UNSCH PRN PRN Reason: For Magnesium 1.2 - 1.6 mg/dL Nicardipine HCl 25 mg/ Sodium (Chloride) 250 mls @ 50 mls/hr IV.CONT TITRATE PRN; Protocol PRN Reason: Per Protocol Phenylephrine HCl 40 mg/ (Sodium Chloride) 500 mls @ 30 mls/hr IV.CONT TITRATE PRN; Protocol PRN Reason: Per Protocol Insulin Aspart (Novolog Insulin Correctional Sugar Inj) 0 unit SQ ACHS [facility]; Protocol Last Admin: 04/29/18 22:30 Dose: Not Given Insulin Human Regular (Novolin R Correctional Sugar Inj) 0 units SQ ACHS [facility]; Protocol Magnesium Oxide (Mag-Ox) 800 mg PO UNSCH PRN PRN Reason: For Magnesium 1.2 - 1.6 mg/dL Ondansetron HCl (Zofran Inj) 4 mg IV.PUSH Q6H PRN PRN Reason: NAUSEA OR VOMITING Potassium Chloride (Kcl Liq) 40 meq PO UNSCH PRN PRN Reason: Potassium level 3.3-3.5 mEq/L Potassium Chloride (Kcl Liq) 40 meq PO UNSCH PRN PRN Reason: POTASSIUM LESS THAN 3.5 Potassium Phosphate (K-Phos Original) 2,000 mg PO Q4H PRN PRN Reason: Phosphorus Less Than 2.5 mg/dL Potassium Phosphate (K-Phos Original) 2,000 mg PO UNSCH PRN PRN Reason: SEE LABEL COMMENTS Sodium Chloride (Ns Flush) 2 ml IV.FLUSH BID [facility] Last Admin: 04/29/18 23:22 Dose: Not Given Sodium Chloride (Ns Flush) 2 ml IV.FLUSH PRN PRN PRN Reason: FLUSH AFTER USING IV ACCESS Terbutaline Sulfate (Brethine Inj) 1 mg SQ UNSCH PRN PRN Reason: For Extravasation Warfarin Sodium (Coumadin) 5 mg PO DAILY@1600 [facility] Last Admin: 04/29/18 23:40 Dose: Not Given Allergies/Adverse Reactions: Allergies Allergy/AdvReac Type Severity Reaction Status Date / Time No Known Allergies Allergy Verified 04/29/18 16:19 Physical Exam Vital signs: Vital Signs 04/29/18 16:00 04/29/18 16:13 04/29/18 16:39 Temperature 97.5 F L Pulse Rate 130 H 115 H 103 H Respiratory Rate 18 16 16 Blood Pressure 225/127 H 212/114 H 210/104 H Pulse Oximetry 99 99 99 04/29/18 16:41 04/29/18 17:02 04/29/18 18:17 Temperature Pulse Rate 96 H 140 H Respiratory Rate 16 16 Blood Pressure 148/97 H 173/135 H Pulse Oximetry 99 97 04/29/18 18:47 04/29/18 19:53 04/29/18 20:09 Temperature Pulse Rate 126 H 122 H Respiratory Rate 16 18 Blood Pressure 265/106 H 223/122 H Pulse Oximetry 97 98 98 04/29/18 20:13 04/29/18 22:00 04/29/18 23:00 Temperature Pulse Rate 120 H 125 H 118 H Respiratory Rate 18 24 28 H Blood Pressure 207/114 H 193/112 H 211/103 H Pulse Oximetry 100 97 97 04/29/18 23:30 04/30/18 00:00 04/30/18 01:00 Temperature 98.4 F Pulse Rate 110 H 115 H 121 H Respiratory Rate 26 H 26 H 35 H Blood Pressure 199/103 H 212/100 H 207/98 H Pulse Oximetry 96 97 98 04/30/18 02:00 04/30/18 02:19 04/30/18 03:00 Temperature Pulse Rate 90 110 H 112 H Respiratory Rate 21 28 H Blood Pressure 190/117 H 196/100 H Pulse Oximetry 94 L 98 04/30/18 04:00 04/30/18 05:00 04/30/18 06:00 Temperature 98.0 F Pulse Rate 107 H 111 H 90 Respiratory Rate 22 25 H 18 Blood Pressure 184/99 H 190/107 H 195/118 H Pulse Oximetry 97 97 95 04/30/18 06:15 04/30/18 07:00 Temperature Pulse Rate 111 H 106 H Respiratory Rate 21 Blood Pressure 184/100 H Pulse Oximetry 98 Intake & Output 04/29/18 04/30/18 04/30/18 18:59 06:59 18:59 Intake Total 525 / 525 Output Total 1000 / 1000 Balance -475 / -475 Weight 87.3 kg 83.4 kg Intake: IV 525 / 525 Heparin/D5W 25,000 U/250 mL 25, 40 / 40 000 unit In 250 ml @ As Directed 10 mls/hr IV.CONT TITRATE PRN Rx#:[id number] NS Inj 1,000 ML @ 70 mls/hr IV. 35 / 35 CONT .[id number] [facility] Rx#: [id number] KCl 20 mEq Premix Inj 20 meq In 200 / 200 100 ml @ 50 mls/hr IV.SIG Q2H PRN Rx#:[id number] NS Inj 250 ML @ 500 mls/hr IV. 250 / 250 SIG BOLUS [facility] Rx#:[id number] Output: Urine 1000 / 1000 Other: # Voids 6 Date of Last Bowel Movement 04/29/18 04/29/18 Weight On Admission 83.4 kg Narrative: sr 185-200/ r droop and exp aphasia severe can understand a lot oc commands 5/5 bue and ble awake alert Objective Laboratory Results - last 24 hr 04/29/18 04/29/18 04/29/18 16:20 16:20 16:20 CBC w Diff Auto diff final WBC 7.7 RBC 5.07 Hgb 16.6 Hct 48.0 MCV 94.8 MCH 32.8 MCHC 34.6 RDW 12.5 Plt Count 253 MPV 9.1 Neut % (Auto) 65.3 Lymph % (Auto) 23.5 [place] % (Auto) 8.1 H Eos % (Auto) 1.0 Baso % (Auto) 2.1 H Neut # (Auto) 5.0 Lymph # (Auto) 1.8 [place] # (Auto) 0.6 Eos # (Auto) 0.1 Baso # (Auto) 0.2 WBC Differential . Differential Comment . ESR PT 9.9 INR 1.0 APTT 28.5 Fibrinogen 419 H Sodium 137 Potassium 3.4 L Chloride 101 Carbon Dioxide 27.1 Anion Gap 9 BUN 11 Creatinine 1.00 Estimated GFR 79 L POC Glucose Random Glucose 80 Calcium 9.5 Phosphorus Magnesium Total Creatine Kinase 162 Troponin I Less than 0.02 L C-Reactive Protein Vitamin B12 TSH Free T4 Urine Color Urine Clarity Urine pH Ur Specific [place] Urine Protein Urine Glucose (UA) Urine Ketones Urine Occult Blood Urine Nitrate Urine Bilirubin Urine Urobilinogen Ur Leukocyte Esterase Urine WBC Urine Bacteria Micro UA Comment Ur Microscopic Review Urine Culture Comments Nasal Screen MRSA (PCR) Urine Opiates Screen Ur Barbiturates Screen Ur Amphetamines Screen U Benzodiazepines Scrn Urine Cocaine Screen U Cannabinoids Screen Blood Type Blood Type Recheck Antibody Screen 04/29/18 04/29/18 04/29/18 18:25 18:25 18:25 CBC w Diff WBC RBC Hgb Hct MCV MCH MCHC RDW Plt Count MPV Neut % (Auto) Lymph % (Auto) [place] % (Auto) Eos % (Auto) Baso % (Auto) Neut # (Auto) Lymph # (Auto) [place] # (Auto) Eos # (Auto) Baso # (Auto) WBC Differential Differential Comment ESR 4 PT INR APTT Fibrinogen Sodium Potassium Chloride Carbon Dioxide Anion Gap BUN Creatinine Estimated GFR POC Glucose Random Glucose Calcium Phosphorus Magnesium Total Creatine Kinase Troponin I C-Reactive Protein 1.64 H Vitamin B12 Greater than 2000 H TSH 2.520 Free T4 0.96 Urine Color Urine Clarity Urine pH Ur Specific [place] Urine Protein Urine Glucose (UA) Urine Ketones Urine Occult Blood Urine Nitrate Urine Bilirubin Urine Urobilinogen Ur Leukocyte Esterase Urine WBC Urine Bacteria Micro UA Comment Ur Microscopic Review Urine Culture Comments Nasal Screen MRSA (PCR) Urine Opiates Screen Ur Barbiturates Screen Ur Amphetamines Screen U Benzodiazepines Scrn Urine Cocaine Screen U Cannabinoids Screen Blood Type O Positive Blood Type Recheck Required Antibody Screen Negative 04/29/18 04/29/18 04/29/18 18:26 19:55 19:55 CBC w Diff WBC RBC Hgb Hct MCV MCH MCHC RDW Plt Count MPV Neut % (Auto) Lymph % (Auto) [place] % (Auto) Eos % (Auto) Baso % (Auto) Neut # (Auto) Lymph # (Auto) [place] # (Auto) Eos # (Auto) Baso # (Auto) WBC Differential Differential Comment ESR PT INR APTT Fibrinogen Sodium Potassium Chloride Carbon Dioxide Anion Gap BUN Creatinine Estimated GFR POC Glucose 87 Random Glucose Calcium Phosphorus Magnesium Total Creatine Kinase Troponin I C-Reactive Protein Vitamin B12 TSH Free T4 Urine Color Yellow Urine Clarity Clear Urine pH 7.5 Ur Specific [place] Less/equal 1.005 Urine Protein Negative Urine Glucose (UA) Negative Urine Ketones Trace H Urine Occult Blood Negative Urine Nitrate Negative Urine Bilirubin Negative Urine Urobilinogen 0.2 Ur Leukocyte Esterase Negative Urine WBC 0-5 Urine Bacteria Rare H Micro UA Comment Culture not ind Ur Microscopic Review Microscopic reviewed Urine Culture Comments Culture not ind Nasal Screen MRSA (PCR) Urine Opiates Screen Neg Ur Barbiturates Screen Neg Ur Amphetamines Screen Neg U Benzodiazepines Scrn Neg Urine Cocaine Screen Neg U Cannabinoids Screen Neg Blood Type Blood Type Recheck Antibody Screen 04/29/18 04/30/18 04/30/18 22:30 04:46 04:46 CBC w Diff WBC 8.5 RBC 4.86 Hgb 16.4 Hct 47.3 MCV 97.3 MCH 33.7 MCHC 34.6 RDW 13.3 Plt Count 228 MPV 8.9 Neut % (Auto) 70.5 H Lymph % (Auto) 19.1 [place] % (Auto) 9.2 H Eos % (Auto) 0.5 Baso % (Auto) 0.7 Neut # (Auto) 6.0 Lymph # (Auto) 1.6 [place] # (Auto) 0.8 Eos # (Auto) 0.0 Baso # (Auto) 0.1 WBC Differential . Differential Comment Auto diff final ESR PT INR APTT Fibrinogen Sodium 140 Potassium 3.8 Chloride 107 Carbon Dioxide 25.2 Anion Gap 8 BUN 8 Creatinine 0.85 Estimated GFR Greater than 89 POC Glucose Random Glucose 99 Calcium 8.2 L D Phosphorus 2.5 Magnesium 1.9 Total Creatine Kinase Troponin I C-Reactive Protein Vitamin B12 TSH Free T4 Urine Color Urine Clarity Urine pH Ur Specific [place] Urine Protein Urine Glucose (UA) Urine Ketones Urine Occult Blood Urine Nitrate Urine Bilirubin Urine Urobilinogen Ur Leukocyte Esterase Urine WBC Urine Bacteria Micro UA Comment Ur Microscopic Review Urine Culture Comments Nasal Screen MRSA (PCR) Not detected Urine Opiates Screen Ur Barbiturates Screen Ur Amphetamines Screen U Benzodiazepines Scrn Urine Cocaine Screen U Cannabinoids Screen Blood Type Blood Type Recheck Antibody Screen 04/30/18 04/30/18 06:20 06:20 CBC w Diff WBC RBC Hgb Hct MCV MCH MCHC RDW Plt Count MPV Neut % (Auto) Lymph % (Auto) [place] % (Auto) Eos % (Auto) Baso % (Auto) Neut # (Auto) Lymph # (Auto) [place] # (Auto) Eos # (Auto) Baso # (Auto) WBC Differential Differential Comment ESR PT 10.2 INR 1.0 APTT 33.1 H Fibrinogen Sodium Potassium Chloride Carbon Dioxide Anion Gap BUN Creatinine Estimated GFR POC Glucose Random Glucose Calcium Phosphorus Magnesium Total Creatine Kinase Troponin I C-Reactive Protein Vitamin B12 TSH Free T4 Urine Color Urine Clarity Urine pH Ur Specific [place] Urine Protein Urine Glucose (UA) Urine Ketones Urine Occult Blood Urine Nitrate Urine Bilirubin Urine Urobilinogen Ur Leukocyte Esterase Urine WBC Urine Bacteria Micro UA Comment Ur Microscopic Review Urine Culture Comments Nasal Screen MRSA (PCR) Urine Opiates Screen Ur Barbiturates Screen Ur Amphetamines Screen U Benzodiazepines Scrn Urine Cocaine Screen U Cannabinoids Screen Blood Type Blood Type Recheck Antibody Screen Review/Management - Review/Management Plan: imp he waxed and waned several times last pnm and at mri seemed to be talking nl i dw tech last pm some time later he seemed to worsen again and this am speech sign affected mri small area of cva left mca ct perfusion larger area at risk mra the left m2 clot seems to have cleared but after trifercation he is missing some mca branch flow on hep ivf keep bp up [place] i dw no hx neck trauma coumadin when taking po fu echo holter hypercoag may do sagar when stable hx tooth infection fu blood cx and echo cards
[2018-04-30] MEDS: Insulin NovoLOG Aspart Correctional Sugar Inj SQ SCH (08:41)
[2018-04-30] MEDS ORDERED: Aspirin 325 MG Tablet PO SCH (09:00)
[2018-04-30] MEDS: Famotidine 20 MG Tablet PO SCH ×2 (09:14→20:42)
[2018-04-30 10:24] LABS: Cholesterol 164 mg/dL (120-200)
[2018-04-30 10:27] LABS: Chol/HDL Ratio 2.86 Ratio; Creatine Kinase 129 U/L (39-308); HDL Cholesterol 57.2 mg/dL (40.0-60.0); LDL Cholesterol,Calculated 93 mg/dL (0-99); Triglycerides 69 mg/dL (42-150)
[2018-04-30] MEDS: Sod Chloride 0.9% Inj 1,000 ML IV.CONT SCH (10:46)
--- NOTE | 2018-04-30 12:04 | P.PNCC ---
Subjective Subjective Remarks/Hospital Course: This is a 47-year-old male who is otherwise previously healthy with the exception of a diagnosis of low testosterone. He presented with new onset visual loss which resolved spontaneously. He presented to [place] emergency department. He was diagnosed with amaurosis fugax. While he was in the emergency department, he became acutely aphasic. Stroke alert was called. CT head was negative for acute bleed. 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 At that time symptoms initially resolved. Discussion between Dr. Villatoro and Dr. Hoyos with interventional radiology was that any attempt at endovascular intervention for the left ICA occlusion would likely shower emboli and because of far worse neurologic devastating injury and conservative management. He was started on heparin infusion. He was transferred to [facility] in [place]. CT perfusion demonstrates a significant mismatch between infarct and at risk brain tissue. On my evaluation, on arrival to the intensive care unit at [facility], the patient has persistent mild expressive aphasia. Receptive leg which is intact. He does complain of new right arm sensory loss. He has good bilateral strength. I again discussed the case with Dr. Villatoro and Dr. Hoyos, who both agree that conservative management is warranted. After discussion with Dr. Villatoro, goal blood pressure goals are 180-220 systolic. Review of systems for this patient is very difficult due to his aphasia, but limited review of systems is negative for chest pain, shortness of breath, fever, chills. 04/30: Systolic blood pressure 180s. Expressive aphasia persists but he appears to understand commands. Mismatched perfusion noted on study. Continue with permissive hypertension. Objective Vital Signs / I&O: Vital Signs 04/29/18 16:00 04/29/18 16:13 04/29/18 16:39 Temperature 97.5 F L Pulse Rate 130 H 115 H 103 H Respiratory Rate 18 16 16 Blood Pressure 225/127 H 212/114 H 210/104 H Pulse Oximetry 99 99 99 04/29/18 16:41 04/29/18 17:02 04/29/18 18:17 Temperature Pulse Rate 96 H 140 H Respiratory Rate 16 16 Blood Pressure 148/97 H 173/135 H Pulse Oximetry 99 97 04/29/18 18:47 04/29/18 19:53 04/29/18 20:09 Temperature Pulse Rate 126 H 122 H Respiratory Rate 16 18 Blood Pressure 265/106 H 223/122 H Pulse Oximetry 97 98 98 04/29/18 20:13 04/29/18 22:00 04/29/18 23:00 Temperature Pulse Rate 120 H 125 H 118 H Respiratory Rate 18 24 28 H Blood Pressure 207/114 H 193/112 H 211/103 H Pulse Oximetry 100 97 97 04/29/18 23:30 04/30/18 00:00 04/30/18 01:00 Temperature 98.4 F Pulse Rate 110 H 115 H 121 H Respiratory Rate 26 H 26 H 35 H Blood Pressure 199/103 H 212/100 H 207/98 H Pulse Oximetry 96 97 98 04/30/18 02:00 04/30/18 02:19 04/30/18 03:00 Temperature Pulse Rate 90 110 H 112 H Respiratory Rate 21 28 H Blood Pressure 190/117 H 196/100 H Pulse Oximetry 94 L 98 04/30/18 04:00 04/30/18 05:00 04/30/18 06:00 Temperature 98.0 F Pulse Rate 107 H 111 H 90 Respiratory Rate 22 25 H 18 Blood Pressure 184/99 H 190/107 H 195/118 H Pulse Oximetry 97 97 95 04/30/18 06:15 04/30/18 07:00 04/30/18 08:00 Temperature 98.0 F Pulse Rate 111 H 106 H 115 H Respiratory Rate 21 26 H Blood Pressure 184/100 H 185/107 H Pulse Oximetry 98 97 04/30/18 08:15 04/30/18 09:00 04/30/18 09:14 Temperature Pulse Rate 108 H 112 H Respiratory Rate 23 27 H Blood Pressure 179/107 H 199/110 H Pulse Oximetry 98 98 98 04/30/18 10:00 04/30/18 10:18 04/30/18 11:00 Temperature Pulse Rate 110 H 107 H 112 H Respiratory Rate 25 H 26 H 27 H Blood Pressure 177/92 H 189/101 H 187/105 H Pulse Oximetry 98 96 97 Intake & Output 04/29/18 04/30/18 04/30/18 18:59 06:59 18:59 Intake Total 525 / 525 1000 / 1000 Output Total 1000 / 1000 Balance -475 / -475 1000 / 1000 Weight 87.3 kg 83.4 kg Intake: IV 525 / 525 1000 / 1000 Heparin/D5W 25,000 U/250 mL 25, 40 / 40 000 unit In 250 ml @ As Directed 10 mls/hr IV.CONT TITRATE PRN Rx#:[id number] NS Inj 1,000 ML @ 70 mls/hr IV. 35 / 35 1000 / 1000 CONT .[id number] MAIK Rx#: [id number] KCl 20 mEq Premix Inj 20 meq In 200 / 200 100 ml @ 50 mls/hr IV.SIG Q2H PRN Rx#:[id number] NS Inj 250 ML @ 500 mls/hr IV. 250 / 250 SIG BOLUS MAIK Rx#:[id number] Output: Urine 1000 / 1000 Other: # Voids 6 Date of Last Bowel Movement 04/29/18 04/29/18 Weight On Admission 83.4 kg Result Diagrams: 04/30/18 04:46 04/30/18 04:46 Objective Remarks: Narrative: GENERAL: Middle-age male, lying in bed, anxious HEENT: Persistent right facial droop. Atraumatic. Pupils 3 mm, equal, round, reactive, conjugate. Mucous membranes are moist NECK: Trachea is midline. Airway widely patent, no gurgling or obstructive noises. CHEST: Equal chest rise. Room air. No accessory muscle use. No adventitious sounds. CARDIOVASCULAR: Normal rate, regular rhythm. Sinus by telemetry. Pressures 185 systolic on my evaluation. ABDOMEN: Soft, nontender, nondistended. No guarding. Bowel sounds active. MUSCULOSKELETAL: Pulses 2+. No peripheral edema. NEUROLOGICAL: RASS 0. CAM -. GCS 15. Persistent expressive aphasia. Receptive language intact. Noted right facial droop. Musculoskeletal power 5/5 in bilateral upper and lower extremities both proximal and distal muscle groups. Assessment and Plan - Assessment and Plan Plan: Assessment: 47-year-old male with acute left ICA thrombosis and associated CVA. Critically ill. Admit to ICU. Maintain cerebral perfusion with goal systolic blood pressure 180 - 220 mmHg. If he clinically decompensates, will repeat CTA head neck, but agree that likely any intervention will worsen his neurologic outcome. He is critically ill with high risk for enlarging stroke. Acute CVA Acute dysarthria Acute sensory deficit RUE Acute aphasia Acute Left ICA occlusion - neurology: Dr. Villatoro consulted - IR: Dr. Hoyos consulted and following peripherally - 2d echo completed - lipid profile reviewed - a1c - statin initiated - anticoag work up initiated, heparin started - PT/OT/ST - nursing bedside swallow eval - environmental systems coordinator consult completed - mivf - HOB flat - telemetry, looking specifically for arrhythmia - heparin drip, convert to oral anticoagulant when approved by neurology service - q1h neuro checks Hypertensive Emergency - permissive hypertension, goal sbp 180 - 220 mmHg - phenylephrine and nicardipine infusions at needed for goal sbp. SSI SCDs Overall impression: Acute carotid occlusion left side with small infarct and considerably larger zone of jeopardy according to the brain perfusion study.. He remains critically ill with a new neurologic deficit and at risk for extension of his stroke. Critical care 40 minutes
[2018-04-30 12:35] LABS: Hematocrit 48.3 % (39.0-51.0); Hemoglobin 16.8 gm/dL (13.0-17.0); Mean Corpuscular HGB Conc 34.7 % (32.0-36.0); Mean Corpuscular Hemoglobin 33.9 pg (27.0-34.0); Mean Corpuscular Volume 97.6 fL (80.0-100.0); Mean Platelet Volume 9.3 fL (7.0-11.0); Platelet Count 230 th/mm3 (150-450); Red Blood Count 4.94 mil/mm3 (4.50-5.90); White Blood Count 7.5 th/mm3 (4.0-11.0)
[2018-04-30] MEDS: Heparin Drip 25,000 UNIT/250 ML BAG IV.CONT PRN (12:41)
--- NOTE | 2018-04-30 14:26 | MB ---
cc: Abner Zhao MD DATE: 04/30/2018 REASON FOR CONSULTATION: Transesophageal echocardiography. HISTORY OF PRESENT ILLNESS: The patient is a very pleasant 47-year-old white male with a history of hypertension, who was admitted to the hospital with acute neurological changes including transient left eye visual loss, transient aphasia, headache. Workup has revealed acute occlusion of the left internal carotid artery with MRI revealing left-sided CVA in the posterior frontal lobe region with a larger zone of jeopardy demonstrated by brain perfusion study. I have been asked to see the patient for transesophageal echocardiography to rule out endocarditis. The patient states he has had a tooth infection for most of the last 4 years, intermittently treated with antibiotics. He denies chest pain, shortness of breath, lightheadedness, syncope, near syncope, pedal edema, paroxysmal nocturnal dyspnea. Very, rarely, he experiences fleeting, fluttering palpitations. PAST MEDICAL HISTORY: Hypertension. PAST SURGICAL HISTORY: None. CARDIAC MEDICATIONS AT HOME: 1. Telmisartan/hydrochlorothiazide, unknown dose daily. ALLERGIES: NO KNOWN DRUG ALLERGIES. FAMILY HISTORY: The patient's father did undergo multiple coronary stents at age 68. SOCIAL HISTORY: The patient denies any history of alcohol or tobacco abuse. REVIEW OF SYSTEMS: As in history of present illness, otherwise negative or noncontributory. He also denies headache, abdominal pain, melena, dyspepsia, bright red blood per rectum, fevers. PHYSICAL EXAMINATION: VITAL SIGNS: His blood pressure 179/105 with a pulse of 107, respirations 18. GENERAL: He is a well-developed, well-nourished white male, in no acute distress. NECK: Jugular venous pressure is normal. Carotid pulses are 2+ bilaterally and without bruits. CHEST: Reveals clear lungs ross. CARDIAC: He has a regular rhythm and rate without S3, S4, or murmur. ABDOMEN: He has a soft, nontender abdomen. Bowel sounds are present. There is no definite hepatosplenomegaly. EXTREMITIES: Reveals no clubbing, cyanosis or edema. Peripheral pulses are normal throughout. There are no definite peripheral stigmata of endocarditis. DIAGNOSTIC DATA: EKG shows sinus tachycardia, otherwise normal EKG. LABORATORY DATA: Includes normal CBC, normal basic metabolic profile, total cholesterol 164, LDL 93, HDL 57, triglycerides 69. IMPRESSION: Acute cerebrovascular accident due to occlusion of the left internal carotid artery in this 47-year-old white male with a history of hypertension. I have been asked to see the patient for transesophageal echocardiography to rule out a cardiac source of embolism as well as endocarditis. Apparently, he has had a chronic tooth infection as well. His transthoracic echocardiogram is pending. Overall, I would agree with the need for a transesophageal echo. The nature of this procedure and the potential risks have been outlined to the patient. He agrees to proceed. RECOMMENDATIONS: Transesophageal echocardiography in 2 days. MD WHIT Patel/yaron , 01:35 PM , 01:42 PM [email or web address]
--- NOTE | 2018-04-30 14:54 | ECHRPT ---
Indication: cva/tia CONCLUSIONS Normal left ventricular size and wall thickness. The left ventricular systolic function is normal wi th an estimated ejection fraction in the range of 60-65%. Normal wall motion. Trace mitral valve regurgitation. There is trace tricuspid valve regurgitation. BP: / HR: Rhythm: MEASUREMENTS (Male / Female) Normal Values Technical Quality: 2D ECHO LV Diastolic Diameter PLAX 4.5 cm 4.2 - 5.9 / 3.9 - 5.3 cm LV Systolic Diameter PLAX 3.1 cm IVS Diastolic Thickness 0.9 cm 0.6 - 1.0 / 0.6 - 0.9 cm LVPW Diastolic Thickness 1.0 cm 0.6 - 1.0 / 0.6 - 0.9 cm LV Relative Wall Thickness 0.4 RV Internal Dim ED PLAX 3.2 cm LVOT Diameter 2.0 cm Aortic Root Diameter 2.3 cm LA Systolic Diameter LX 2.9 cm 3.0 - 4.0 / 2.7 - 3.8 cm M-MODE Aortic Root Diameter MM 3.1 cm LA Systolic Diameter MM 3.6 cm LA Ao Ratio MM 1.2 AV Cusp Separation MM 1.6 cm DOPPLER AV Peak Velocity 164.0 cm/s AV Peak Gradient 10.8 mmHg LVOT Peak Velocity 106.0 cm/s LVOT Peak Gradient 4.5 mmHg AV Area Cont Eq pk 2.0 cm Mitral E Point Velocity 81.4 cm/s Mitral A Point Velocity 71.6 cm/s Mitral E to A Ratio 1.1 LV E' Lateral Velocity 13.7 cm/s Mitral E to LV E' Lateral Ratio 5.9 LV E' Septal Velocity 12.0 cm/s Mitral E to LV E' Septal Ratio 6.8 TR Peak Velocity 288.0 cm/s TR Peak Gradient 33.2 mmHg Right Atrial Pressure 10.0 mmHg Pulmonary Artery Systolic Pressu 43.2 mmHg Right Ventricular Systolic Press 43.2 mmHg PV Peak Velocity 241.5 cm/s PV Peak Gradient 23.3 mmHg RVOT Peak Velocity 156.0 cm/s PV Area Cont Eq vti 2.8 cm PV Area Cont Eq pk 3.3 cm FINDINGS LEFT VENTRICLE Normal left ventricular size and wall thickness. The left ventricular systolic function is normal wi th an estimated ejection fraction in the range of 60-65%. Normal wall motion. RIGHT VENTRICLE Normal right ventricular size and systolic function. LEFT ATRIUM The left atrial size is normal. RIGHT ATRIUM The right atrial size is normal. ATRIAL SEPTUM Normal atrial septal thickness without atrial level shunting by limited color doppler interrogation. AORTA The aortic root and proximal ascending aorta are normal in size on limited imaging. MITRAL VALVE Trace mitral valve regurgitation. AORTIC VALVE Trileaflet aortic valve. No aortic valve stenosis or regurgitation. TRICUSPID VALVE There is trace tricuspid valve regurgitation. PULMONARY VALVE No pulmonary valve regurgitation or stenosis. VESSELS The inferior vena cava is normal in size. PERICARDIUM No pericardial effusion. Abner Zhao MD (Electronically Signed) Final Date:30 April 2018 14:54
--- NOTE | 2018-04-30 14:56 | OTSOAPIP ---
TIME SESSION COMPLETED: TREATMENT TIME: 0 MINS. CHART REVIEWED. NURSING REQUESTED TO HOLD TREATMENT PATIENT IS ON STRICT BED REST WITH HEAD OF BED STATUS. PATIENT NEUROLOGICAL SYMPTOMS ARE FLUCTUATING PLAN WILL SEE PATIENT NEXT TREATMENT Therapist: Alicia Sow Signature on file
[2018-04-30] MEDS: Phenylephrine Inj 40 MG in Sodium Chlor 0.9% Inj 496 ML IV.CONT PRN (18:09)
--- NOTE | 2018-04-30 19:52 | ECG ---
Date Performed: 04/29/2018 Time Performed: 18:56:45 PTAGE: 47 years EKG: SINUS TACHYCARDIA ABNORMAL RHYTHM ECG NO PREVIOUS TRACING DOCTOR: Elli Matute Interpretating Date/Time 04/30/2018 19:50:59
[2018-05-01] MEDS: Sod Chloride 0.9% Inj 1,000 ML IV.CONT SCH ×2 (00:04→16:16)
[2018-05-01] MEDS: Phenylephrine Inj 40 MG in Sodium Chlor 0.9% Inj 496 ML IV.CONT PRN ×4 (02:57→23:58)
[2018-05-01 04:07] LABS: Baso # (Auto) 0.1 th/mm3 (0.0-0.2); Baso % (Auto) 0.9 % (0.0-2.0); Eos # (Auto) 0.1 th/mm3 (0.0-0.4); Eos % (Auto) 0.9 % (0.0-4.0); Hematocrit 46.2 % (39.0-51.0); Hemoglobin 15.9 gm/dL (13.0-17.0); Lymph # (Auto) 3.5 th/mm3 (1.0-4.8); Lymph % (Auto) 32.7 % (9.0-44.0); Mean Corpuscular HGB Conc 34.4 % (32.0-36.0); Mean Corpuscular Hemoglobin 33.9 pg (27.0-34.0); Mean Corpuscular Volume 98.6 fL (80.0-100.0); Mean Platelet Volume 9.5 fL (7.0-11.0); Mono % (Auto) 9.5 % (0.0-8.0); Neut # (Auto) 6.1 th/mm3 (1.8-7.7); Platelet Count 274 th/mm3 (150-450); Red Blood Count 4.68 mil/mm3 (4.50-5.90); Red Cell Distribution Width 13.4 % (11.6-17.2); White Blood Count 10.8 th/mm3 (4.0-11.0)
[2018-05-01 04:12] LABS: Prothrombin Time 10.5 sec (9.8-11.6)
[2018-05-01 04:23] LABS: Anion Gap 9 meq/L (5-15); Blood Urea Nitrogen 7 mg/dL (7-18); Carbon Dioxide 23.8 meq/L (21.0-32.0); Chloride 107 meq/L (98-107); Glomerular Filtration Rate Greater Than 89 mL/min (>89); Glucose,Random 88 mg/dL (74-106); Sodium 140 meq/L (136-145)
[2018-05-01 04:24] LABS: Phosphorus 2.3 mg/dL (2.5-4.9)
[2018-05-01] MEDS: Chlorhexidine Gluconate 2% 1 Pack (2 Cloths) TOPICAL SCH (06:45)
[2018-05-01] MEDS: Heparin Drip 25,000 UNIT/250 ML BAG IV.CONT PRN (07:25)
--- NOTE | 2018-05-01 08:19 | P.PNNEU ---
Subjective Active Medications: Active Medications Acetaminophen (Tylenol) 650 mg PO Q6H PRN PRN Reason: TEMPERATURE > 101 F Albuterol (Duoneb Neb (Prn)) 1 ampul NEB Q2HR NEB PRN PRN Reason: WHEEZING Atorvastatin Calcium (Lipitor) 80 mg PO DAILY [facility] Last Admin: 04/30/18 09:14 Dose: 80 mg Chlorhexidine Gluconate (Chlorhexidine 2% Cloth) 3 pack TOPICAL DAILY@0400 [facility] Stop: 05/05/18 03:59 Last Admin: 05/01/18 06:45 Dose: Not Given Chlorhexidine Gluconate (Chlorhexidine 2% Cloth) 3 pack TOPICAL DAILY@0400 PRN PRN Reason: Extra cloth needed Stop: 05/05/18 03:59 Dextrose (D50w Vial) 50 ml IV.PUSH UNSCH PRN PRN Reason: PER HYPOGLYCEMIA PROTOCOL Enalaprilat (Vasotec Inj) 1.25 mg IV.PUSH Q4H PRN PRN Reason: For SBP > 220 or DBP > 120 Last Admin: 04/29/18 19:46 Dose: 1.25 mg Famotidine (Pepcid) 20 mg PO BID [facility] Last Admin: 04/30/18 20:42 Dose: 20 mg Glucagon (Glucagon Inj) 1 mg OTHER UNSCH PRN PRN Reason: for Hypoglycemia Protocol Sodium Chloride (Ns Inj) 1,000 mls @ 70 mls/hr IV.CONT .[id number] [facility] Last Admin: 05/01/18 00:04 Dose: 70 mls/hr Heparin Sodium/Dextrose (Heparin/D5w 25,000 U/250 Ml) 25,000 unit in 250 mls @ 10 mls/hr IV.CONT TITRATE PRN; Protocol PRN Reason: Per Protocol Last Admin: 05/01/18 07:25 Dose: 1,300 units/hr, 13 mls/hr Potassium Chloride (Kcl 40 Meq Premix Inj) 40 meq in 100 mls @ 25 mls/hr IV.SIG Q2H PRN PRN Reason: For Potassium 2.8 - 3.2 mEq/L Potassium Chloride (Kcl 20 Meq Premix Inj) 20 meq in 100 mls @ 50 mls/hr IV.SIG Q2H PRN PRN Reason: For Potassium 3.3 - 3.5 mEq/L Last Infusion: 04/30/18 05:28 Dose: Infused Potassium Chloride (Kcl 40 Meq Premix Inj) 40 meq in 100 mls @ 25 mls/hr IV.SIG UNSCH PRN PRN Reason: For Potassium 3.3 - 3.5 mEq/L Sodium Phosphate 30 mmol/ (Sodium Chloride) 260 mls @ 42 mls/hr IV.SIG UNSCH PRN PRN Reason: For Phosphorus < 2.5 mg/dL Potassium Phosphate 30 mmol/ (Sodium Chloride) 260 mls @ 42 mls/hr IV.SIG UNSCH PRN PRN Reason: SEE LABEL COMMENTS Magnesium Sulfate 4 gm/ Sodium (Chloride) 100 mls @ 50 mls/hr IV.SIG UNSCH PRN PRN Reason: For Magnesium 0.9 - 1.1 mg/dL Potassium Chloride (Kcl 20 Meq Premix Inj) 20 meq in 100 mls @ 50 mls/hr IV.SIG Q2H PRN PRN Reason: For Potassium 2.8 - 3.2 mEq/L Magnesium Sulfate 2 gm/ Sodium (Chloride) 100 mls @ 50 mls/hr IV.SIG UNSCH PRN PRN Reason: For Magnesium 1.2 - 1.6 mg/dL Nicardipine HCl 25 mg/ Sodium (Chloride) 250 mls @ 50 mls/hr IV.CONT TITRATE PRN; Protocol PRN Reason: Per Protocol Phenylephrine HCl 40 mg/ (Sodium Chloride) 500 mls @ 30 mls/hr IV.CONT TITRATE PRN; Protocol PRN Reason: Per Protocol Last Admin: 05/01/18 02:57 Dose: 120 mcg/min, 90 mls/hr Magnesium Oxide (Mag-Ox) 800 mg PO UNSCH PRN PRN Reason: For Magnesium 1.2 - 1.6 mg/dL Ondansetron HCl (Zofran Inj) 4 mg IV.PUSH Q6H PRN PRN Reason: NAUSEA OR VOMITING Potassium Chloride (Kcl Liq) 40 meq PO UNSCH PRN PRN Reason: Potassium level 3.3-3.5 mEq/L Potassium Chloride (Kcl Liq) 40 meq PO UNSCH PRN PRN Reason: POTASSIUM LESS THAN 3.5 Potassium Phosphate (K-Phos Original) 2,000 mg PO Q4H PRN PRN Reason: Phosphorus Less Than 2.5 mg/dL Potassium Phosphate (K-Phos Original) 2,000 mg PO UNSCH PRN PRN Reason: SEE LABEL COMMENTS Sodium Chloride (Ns Flush) 2 ml IV.FLUSH BID [facility] Last Admin: 04/30/18 20:43 Dose: 2 ml Sodium Chloride (Ns Flush) 2 ml IV.FLUSH PRN PRN PRN Reason: FLUSH AFTER USING IV ACCESS Terbutaline Sulfate (Brethine Inj) 1 mg SQ UNSCH PRN PRN Reason: For Extravasation Warfarin Sodium (Coumadin) 5 mg PO DAILY@1600 [facility] Last Admin: 04/30/18 16:12 Dose: 5 mg Allergies/Adverse Reactions: Allergies Allergy/AdvReac Type Severity Reaction Status Date / Time No Known Allergies Allergy Verified 04/29/18 16:19 Physical Exam Vital signs: Vital Signs 04/30/18 09:00 04/30/18 09:14 04/30/18 10:00 Temperature Pulse Rate 108 H 112 H 110 H Respiratory Rate 23 27 H 25 H Blood Pressure 179/107 H 199/110 H 177/92 H Pulse Oximetry 98 98 98 04/30/18 10:18 04/30/18 11:00 04/30/18 12:00 Temperature 99.2 F Pulse Rate 107 H 112 H 107 H Respiratory Rate 26 H 27 H 18 Blood Pressure 189/101 H 187/105 H 179/105 H Pulse Oximetry 96 97 97 04/30/18 12:17 04/30/18 13:00 04/30/18 14:00 Temperature Pulse Rate 110 H 92 H 103 H Respiratory Rate 27 H 20 21 Blood Pressure 192/108 H 206/86 H 207/158 H Pulse Oximetry 97 94 L 96 04/30/18 14:12 04/30/18 15:00 04/30/18 15:10 Temperature Pulse Rate 114 H 87 90 Respiratory Rate 25 H 20 24 Blood Pressure 205/107 H 118/89 163/102 H Pulse Oximetry 97 94 L 95 04/30/18 15:27 04/30/18 15:37 04/30/18 15:53 Temperature Pulse Rate 87 102 H 99 H Respiratory Rate 19 20 23 Blood Pressure 175/110 H 167/96 H 183/105 H Pulse Oximetry 94 L 97 96 04/30/18 16:00 04/30/18 17:00 04/30/18 17:51 Temperature 98.1 F Pulse Rate 102 H 100 H 90 Respiratory Rate 22 25 H 19 Blood Pressure 187/105 H 174/99 H 154/88 H Pulse Oximetry 98 98 97 04/30/18 17:53 04/30/18 18:00 04/30/18 18:12 Temperature Pulse Rate 83 96 H 93 H Respiratory Rate 19 23 30 H Blood Pressure 152/89 H 144/88 H 182/104 H Pulse Oximetry 95 97 96 04/30/18 18:22 04/30/18 18:36 04/30/18 18:51 Temperature Pulse Rate 89 92 H 100 H Respiratory Rate 24 22 24 Blood Pressure 164/100 H 171/102 H 191/118 H Pulse Oximetry 97 98 98 04/30/18 19:00 04/30/18 19:06 04/30/18 20:00 Temperature 99.0 F Pulse Rate 100 H 96 H 93 H Respiratory Rate 23 23 21 Blood Pressure 182/111 H 175/107 H Pulse Oximetry 98 97 96 04/30/18 20:05 04/30/18 20:21 04/30/18 20:51 Temperature Pulse Rate 87 88 Respiratory Rate 24 24 Blood Pressure 165/101 H 159/100 H Pulse Oximetry 97 95 97 04/30/18 21:00 04/30/18 21:06 04/30/18 21:36 Temperature Pulse Rate 90 78 84 Respiratory Rate 27 H 23 27 H Blood Pressure 165/106 H 165/106 H 169/107 H Pulse Oximetry 98 97 97 04/30/18 22:00 04/30/18 22:21 04/30/18 22:36 Temperature Pulse Rate 76 87 80 Respiratory Rate 23 24 21 Blood Pressure 166/109 H 169/105 H 159/100 H Pulse Oximetry 98 98 95 04/30/18 22:51 04/30/18 23:00 04/30/18 23:21 Temperature Pulse Rate 77 72 70 Respiratory Rate 21 19 21 Blood Pressure 170/105 H 174/107 H 187/112 H Pulse Oximetry 96 95 96 05/01/18 00:00 05/01/18 00:21 05/01/18 01:00 Temperature 98.5 F Pulse Rate 82 72 68 Respiratory Rate 19 23 19 Blood Pressure 171/107 H 182/100 H 161/105 H Pulse Oximetry 95 96 96 05/01/18 01:21 05/01/18 01:36 05/01/18 02:00 Temperature Pulse Rate 69 71 70 Respiratory Rate 19 21 22 Blood Pressure 179/96 H 180/101 H 157/92 H Pulse Oximetry 96 96 96 05/01/18 03:00 05/01/18 04:00 05/01/18 05:00 Temperature 98.6 F Pulse Rate 81 57 L 67 Respiratory Rate 26 H 22 19 Blood Pressure 184/103 H 186/94 H 181/94 H Pulse Oximetry 97 96 96 05/01/18 06:00 05/01/18 06:12 05/01/18 06:21 Temperature Pulse Rate 65 65 78 Respiratory Rate 24 23 Blood Pressure 173/98 H 171/99 H Pulse Oximetry 96 96 05/01/18 06:36 05/01/18 06:51 05/01/18 07:00 Temperature Pulse Rate 61 72 61 Respiratory Rate 21 24 21 Blood Pressure 174/97 H 188/106 H Pulse Oximetry 97 97 96 05/01/18 07:06 05/01/18 07:21 Temperature Pulse Rate 63 70 Respiratory Rate 20 22 Blood Pressure 179/106 H 185/106 H Pulse Oximetry 96 96 Intake & Output 04/30/18 05/01/18 05/01/18 18:59 06:59 18:59 Intake Total 1210 / 1210 1500 / 1500 250 / 250 Output Total 2175 / 2175 Balance 1210 / 1210 -675 / -675 250 / 250 Intake: IV 1210 / 1210 1500 / 1500 250 / 250 Heparin/D5W 25,000 U/250 mL 25, 210 / 210 250 / 250 000 unit In 250 ml @ As Directed 10 mls/hr IV.CONT TITRATE PRN Rx#:[id number] Neosynephrine Inj 40 MG In NS 500 / 500 Inj 496 ML @ 40 MCG/MIN 30 mls/ hr IV.CONT TITRATE PRN Rx#: [id number] NS Inj 1,000 ML @ 70 mls/hr IV. 1000 / 1000 1000 / 1000 CONT .[id number] MAIK Rx#: [id number] Oral 0 / 0 Output: Urine 2175 / 2175 Other: # Voids 5 Date of Last Bowel Movement 04/29/18 04/29/18 # Bowel Movements 0 Narrative: sr speech near nl vff 5/5 t/o minimal r droop Objective Laboratory Results - last 24 hr 04/29/18 04/30/18 04/30/18 19:30 04:46 04:46 WBC RBC Hgb Hct MCV MCH MCHC RDW Plt Count MPV Neut % (Auto) Lymph % (Auto) Powell % (Auto) Eos % (Auto) Baso % (Auto) Neut # (Auto) Lymph # (Auto) Powell # (Auto) Eos # (Auto) Baso # (Auto) WBC Differential Differential Comment PT INR APTT Sodium Potassium Chloride Carbon Dioxide Anion Gap BUN Creatinine Estimated GFR POC Glucose Random Glucose Hemoglobin A1c 5.0 Calcium Phosphorus Magnesium Total Creatine Kinase 129 Troponin I Less than 0.02 L Triglycerides 69 Cholesterol 164 LDL Cholesterol, Calc 93 HDL Cholesterol 57.2 Cholesterol/HDL Ratio 2.86 RPR Nonreactive 04/30/18 04/30/18 04/30/18 08:23 12:07 12:07 WBC 7.5 RBC 4.94 Hgb 16.8 Hct 48.3 MCV 97.6 MCH 33.9 MCHC 34.7 RDW 13.0 Plt Count 230 MPV 9.3 Neut % (Auto) Lymph % (Auto) Powell % (Auto) Eos % (Auto) Baso % (Auto) Neut # (Auto) Lymph # (Auto) Powell # (Auto) Eos # (Auto) Baso # (Auto) WBC Differential Differential Comment PT INR APTT Sodium Potassium 3.9 Chloride Carbon Dioxide Anion Gap BUN Creatinine Estimated GFR POC Glucose 89 Random Glucose Hemoglobin A1c Calcium Phosphorus Magnesium Total Creatine Kinase Troponin I Triglycerides Cholesterol LDL Cholesterol, Calc HDL Cholesterol Cholesterol/HDL Ratio RPR 04/30/18 04/30/18 05/01/18 12:07 19:33 02:44 WBC 10.8 RBC 4.68 Hgb 15.9 Hct 46.2 MCV 98.6 MCH 33.9 MCHC 34.4 RDW 13.4 Plt Count 274 MPV 9.5 Neut % (Auto) 56.0 Lymph % (Auto) 32.7 Powell % (Auto) 9.5 H Eos % (Auto) 0.9 Baso % (Auto) 0.9 Neut # (Auto) 6.1 Lymph # (Auto) 3.5 Powell # (Auto) 1.0 H Eos # (Auto) 0.1 Baso # (Auto) 0.1 WBC Differential . Differential Comment Auto diff final PT INR APTT 30.0 39.0 H D Sodium Potassium Chloride Carbon Dioxide Anion Gap BUN Creatinine Estimated GFR POC Glucose Random Glucose Hemoglobin A1c Calcium Phosphorus Magnesium Total Creatine Kinase Troponin I Triglycerides Cholesterol LDL Cholesterol, Calc HDL Cholesterol Cholesterol/HDL Ratio RPR 05/01/18 05/01/18 02:44 02:44 WBC RBC Hgb Hct MCV MCH MCHC RDW Plt Count MPV Neut % (Auto) Lymph % (Auto) Powell % (Auto) Eos % (Auto) Baso % (Auto) Neut # (Auto) Lymph # (Auto) Powell # (Auto) Eos # (Auto) Baso # (Auto) WBC Differential Differential Comment PT 10.5 INR 1.0 APTT 43.0 H Sodium 140 Potassium 4.0 Chloride 107 Carbon Dioxide 23.8 Anion Gap 9 BUN 7 Creatinine 0.82 Estimated GFR Greater than 89 POC Glucose Random Glucose 88 Hemoglobin A1c Calcium 8.0 L Phosphorus 2.3 L Magnesium 2.0 Total Creatine Kinase Troponin I Triglycerides Cholesterol LDL Cholesterol, Calc HDL Cholesterol Cholesterol/HDL Ratio RPR Microbiology 04/29/18 19:30 Aerobic Blood Culture - Preliminary Blood - Peripheral No growth in 1 day Anaerobic Blood Culture - Preliminary No growth in 1 day 04/29/18 19:30 Aerobic Blood Culture - Preliminary Blood - Peripheral No growth in 1 day Anaerobic Blood Culture - Preliminary No growth in 1 day Review/Management - Review/Management Plan: imp he waxed and waned several times last pnm and at mri seemed to be talking nl [place] [employer] last pm some time later he seemed to worsen again and this am speech sign affected mri small area of cva left mca ct perfusion larger area at risk mra the left m2 clot seems to have cleared but after trifercation he is missing some mca branch flow on hep ivf keep bp up [place] i melani no hx neck trauma coumadin when taking po fu echo holter hypercoag may do sagar when stable hx tooth infection fu blood cx and echo cards 05/01/18 much better on hep and coumadin plan if sagar sunday and at least cardionet if not loop do not drop bp during sagar can run today 170-180/ as he ran briefly 118/ yest w/o problems i melani nurse hob up a little ok to eat hyper pend echo nl sr here so far
[2018-05-01] MEDS: Famotidine 20 MG Tablet PO SCH ×2 (09:20→20:29)
[2018-05-01 10:57] LABS: Anti-Nuclear Antibody Screen Neg (Neg)
--- NOTE | 2018-05-01 12:11 | P.PNCC ---
Subjective Subjective Remarks/Hospital Course: This is a 47-year-old male who is otherwise previously healthy with the exception of a diagnosis of low testosterone. He presented with new onset visual loss which resolved spontaneously. He presented to [place] emergency department. He was diagnosed with amaurosis fugax. While he was in the emergency department, he became acutely aphasic. Stroke alert was called. CT head was negative for acute bleed. 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 At that time symptoms initially resolved. Discussion between Dr. Villatoro and Dr. Hoyos with interventional radiology was that any attempt at endovascular intervention for the left ICA occlusion would likely shower emboli and because of far worse neurologic devastating injury and conservative management. He was started on heparin infusion. He was transferred to [facility] in [place]. CT perfusion demonstrates a significant mismatch between infarct and at risk brain tissue. On my evaluation, on arrival to the intensive care unit at [facility], the patient has persistent mild expressive aphasia. Receptive leg which is intact. He does complain of new right arm sensory loss. He has good bilateral strength. I again discussed the case with Dr. Villatoro and Dr. Hoyos, who both agree that conservative management is warranted. After discussion with Dr. Villatoro, goal blood pressure goals are 180-220 systolic. Review of systems for this patient is very difficult due to his aphasia, but limited review of systems is negative for chest pain, shortness of breath, fever, chills. 04/30: Systolic blood pressure 180s. Expressive aphasia persists but he appears to understand commands. Mismatched perfusion noted on study. Continue with permissive hypertension. 05/01: Tolerated one episode of moderately lower blood pressure around 120. Now back up in the 180s. Started on warfarin and INR this morning is neuro. Speech has improved steadily over the past 24 hours. Swallow evaluation then feeding as tolerated by exam. Objective Vital Signs / I&O: Vital Signs 04/30/18 12:17 04/30/18 13:00 04/30/18 14:00 Temperature Pulse Rate 110 H 92 H 103 H Respiratory Rate 27 H 20 21 Blood Pressure 192/108 H 206/86 H 207/158 H Pulse Oximetry 97 94 L 96 04/30/18 14:12 04/30/18 15:00 04/30/18 15:10 Temperature Pulse Rate 114 H 87 90 Respiratory Rate 25 H 20 24 Blood Pressure 205/107 H 118/89 163/102 H Pulse Oximetry 97 94 L 95 04/30/18 15:27 04/30/18 15:37 04/30/18 15:53 Temperature Pulse Rate 87 102 H 99 H Respiratory Rate 19 20 23 Blood Pressure 175/110 H 167/96 H 183/105 H Pulse Oximetry 94 L 97 96 04/30/18 16:00 04/30/18 17:00 04/30/18 17:51 Temperature 98.1 F Pulse Rate 102 H 100 H 90 Respiratory Rate 22 25 H 19 Blood Pressure 187/105 H 174/99 H 154/88 H Pulse Oximetry 98 98 97 04/30/18 17:53 04/30/18 18:00 04/30/18 18:12 Temperature Pulse Rate 83 96 H 93 H Respiratory Rate 19 23 30 H Blood Pressure 152/89 H 144/88 H 182/104 H Pulse Oximetry 95 97 96 04/30/18 18:22 04/30/18 18:36 04/30/18 18:51 Temperature Pulse Rate 89 92 H 100 H Respiratory Rate 24 22 24 Blood Pressure 164/100 H 171/102 H 191/118 H Pulse Oximetry 97 98 98 04/30/18 19:00 04/30/18 19:06 04/30/18 20:00 Temperature 99.0 F Pulse Rate 100 H 96 H 93 H Respiratory Rate 23 23 21 Blood Pressure 182/111 H 175/107 H Pulse Oximetry 98 97 96 04/30/18 20:05 04/30/18 20:21 04/30/18 20:51 Temperature Pulse Rate 87 88 Respiratory Rate 24 24 Blood Pressure 165/101 H 159/100 H Pulse Oximetry 97 95 97 04/30/18 21:00 04/30/18 21:06 04/30/18 21:36 Temperature Pulse Rate 90 78 84 Respiratory Rate 27 H 23 27 H Blood Pressure 165/106 H 165/106 H 169/107 H Pulse Oximetry 98 97 97 04/30/18 22:00 04/30/18 22:21 04/30/18 22:36 Temperature Pulse Rate 76 87 80 Respiratory Rate 23 24 21 Blood Pressure 166/109 H 169/105 H 159/100 H Pulse Oximetry 98 98 95 04/30/18 22:51 04/30/18 23:00 04/30/18 23:21 Temperature Pulse Rate 77 72 70 Respiratory Rate 21 19 21 Blood Pressure 170/105 H 174/107 H 187/112 H Pulse Oximetry 96 95 96 05/01/18 00:00 05/01/18 00:21 05/01/18 01:00 Temperature 98.5 F Pulse Rate 82 72 68 Respiratory Rate 19 23 19 Blood Pressure 171/107 H 182/100 H 161/105 H Pulse Oximetry 95 96 96 05/01/18 01:21 05/01/18 01:36 05/01/18 02:00 Temperature Pulse Rate 69 71 70 Respiratory Rate 19 21 22 Blood Pressure 179/96 H 180/101 H 157/92 H Pulse Oximetry 96 96 96 05/01/18 03:00 05/01/18 04:00 05/01/18 05:00 Temperature 98.6 F Pulse Rate 81 57 L 67 Respiratory Rate 26 H 22 19 Blood Pressure 184/103 H 186/94 H 181/94 H Pulse Oximetry 97 96 96 05/01/18 06:00 05/01/18 06:12 05/01/18 06:21 Temperature Pulse Rate 65 65 78 Respiratory Rate 24 23 Blood Pressure 173/98 H 171/99 H Pulse Oximetry 96 96 05/01/18 06:36 05/01/18 06:51 05/01/18 07:00 Temperature Pulse Rate 61 72 61 Respiratory Rate 21 24 21 Blood Pressure 174/97 H 188/106 H Pulse Oximetry 97 97 96 05/01/18 07:06 05/01/18 07:21 05/01/18 07:36 Temperature Pulse Rate 63 70 70 Respiratory Rate 20 22 26 H Blood Pressure 179/106 H 185/106 H 193/104 H Pulse Oximetry 96 96 97 05/01/18 07:51 05/01/18 08:00 05/01/18 08:06 Temperature 98.1 F Pulse Rate 90 89 86 Respiratory Rate 22 25 H 16 Blood Pressure 200/108 H 176/90 H Pulse Oximetry 97 97 96 05/01/18 08:21 05/01/18 08:36 05/01/18 08:51 Temperature Pulse Rate 89 89 83 Respiratory Rate 11 L 23 22 Blood Pressure 157/85 H 151/90 H 172/96 H Pulse Oximetry 95 95 95 05/01/18 09:00 05/01/18 09:06 02/27/19 09:18 Temperature Pulse Rate 93 H 131 H 100 H Respiratory Rate 17 22 38 H Blood Pressure 197/120 H 192/117 H Pulse Oximetry 97 99 96 05/01/18 09:21 05/01/18 09:36 05/01/18 09:51 Temperature Pulse Rate 96 H 88 103 H Respiratory Rate 29 H 27 H 22 Blood Pressure 187/111 H 159/93 H 174/112 H Pulse Oximetry 96 95 97 05/01/18 10:00 05/01/18 10:06 Temperature Pulse Rate 87 84 Respiratory Rate 17 22 Blood Pressure 169/110 H Pulse Oximetry 95 96 Intake & Output 04/30/18 05/01/18 05/01/18 18:59 06:59 18:59 Intake Total 1210 / 1210 1500 / 1500 750 / 750 Output Total 2175 / 2175 Balance 1210 / 1210 -675 / -675 750 / 750 Intake: IV 1210 / 1210 1500 / 1500 750 / 750 Heparin/D5W 25,000 U/250 mL 25, 210 / 210 250 / 250 000 unit In 250 ml @ As Directed 10 mls/hr IV.CONT TITRATE PRN Rx#:[id number] Neosynephrine Inj 40 MG In NS 500 / 500 500 / 500 Inj 496 ML @ 40 MCG/MIN 30 mls/ hr IV.CONT TITRATE PRN Rx#: [id number] NS Inj 1,000 ML @ 70 mls/hr IV. 1000 / 1000 1000 / 1000 CONT .[id number] MAIK Rx#: [id number] Oral 0 / 0 Output: Urine 2175 / 2175 Other: # Voids 5 Date of Last Bowel Movement 04/29/18 04/29/18 04/29/18 # Bowel Movements 0 Result Diagrams: 05/01/18 02:44 05/01/18 02:44 Objective Remarks: Narrative: GENERAL: Middle-age male, lying in bed, calm HEENT: Minimal right facial droop. Atraumatic. Pupils 3 mm, equal, round, reactive, conjugate. Mucous membranes are moist NECK: Trachea is midline. Airway widely patent, no obstructive noises. CHEST: Equal chest rise. Room air. No accessory muscle use. No adventitious sounds. CARDIOVASCULAR: Normal rate, regular rhythm. Sinus by telemetry. Pressures 180 systolic. ABDOMEN: Soft, nontender, nondistended. No guarding. Bowel sounds active. MUSCULOSKELETAL: Pulses 2+. No peripheral edema. NEUROLOGICAL: RASS 0. GCS 15. Speech and ability to find words improving, receptive language intact. Minimal right facial droop. Musculoskeletal power 5/ 5 in bilateral upper and lower extremities both proximal and distal muscle groups. Assessment and Plan - Assessment and Plan Plan: Assessment: 47-year-old male with acute left ICA thrombosis and associated CVA. Critically ill. Admit to ICU. Maintain cerebral perfusion with goal systolic blood pressure 180 - 220 mmHg. If he clinically decompensates, will repeat CTA head neck, but agree that likely any intervention will worsen his neurologic outcome. He is critically ill with high risk for enlarging stroke. Acute CVA Acute dysarthria Acute sensory deficit RUE Acute aphasia Acute Left ICA occlusion - neurology: Dr. Villatoro consulted - IR: Dr. Hoyos consulted and following peripherally - 2d echo completed - lipid profile reviewed - a1c - statin initiated - anticoag work up initiated, heparin started - PT/OT/ST - nursing bedside swallow eval - coordinator of placement consult completed - mav - [facility] - telemetry, looking specifically for arrhythmia - heparin drip, convert to oral anticoagulant when approved by neurology service - q1h neuro checks - Daily INR now that on Coumadin - Discontinue heparin when therapeutic Hypertensive Emergency - permissive hypertension, goal sbp 180 - 220 mmHg - phenylephrine to keep systolic blood pressure greater than 180 SSI SCDs Overall impression: Acute carotid occlusion left side with small infarct and considerably larger zone of jeopardy according to the brain perfusion study. He remains critically ill with a new neurologic deficit and at risk for extension of his stroke. Expressive aphasia appears to be clearing considerably.
--- NOTE | 2018-05-01 14:24 | P.CONID ---
History of Present Illness Service: Infectious disease Consult date: 05/01/18 Requesting Physician: Rosas Shay Reason for Consult: Evaluate patient with positive blood culture with [facility] Primary Care Provider: UNKNOWN Chief Complaint: Loss of vision in left eye History of Present Illness: Patient seen and examined. Records reviewed. Patient is a 47-year-old male, brought into the hospital for evaluation of sudden loss of vision in the left eye and a sensation of seeing stars in that left eye. Patient apparently has had problem with his molars, and last April 26 he was having pain in the right lower molar area. He called his primary care doctor, and a prescription was called for him and he started taking amoxicillin 500 mg 3 times a day. He was set up with a dentist and he saw the dentist on the day of admission when he had the transient loss of vision in the left eye. In the dentist he was supposed to follow-up next week to have some work done on his teeth including tooth extraction in 1 of them. He has no prior history of dental infection in the past. It happened a second time in this time he went to the hospital for further evaluation and treatment. He was evaluated, and was found to have a thrombus on the left side. It was decided to give him heparin. He also had developed some mild expressive aphasia and weakness. His neurological symptoms have improved. There were 2 blood cultures done on admission and one blood culture is now growing gram- positive isadora in the aerobic bottle. Patient gave a history of flulike symptoms with body aches about a week prior to admission. He had about 2 days of fevers , and he just waited out, and his symptoms improved. Patient had a regular echocardiogram which did not show any evidence of vegetation. Patient is scheduled to get CARY on May 03. Infectious disease consultation has been requested to evaluate the patient with one positive blood culture on admission. Review of Systems Constitutional: Reports body ache(s), Reports fever(s) Eyes: Denies discharge, Denies dry eyes Ears, Nose, Mouth, and Throat: Reports dental pain, Denies difficulty swallowing , Denies facial pain, Denies pain with swallowing, Denies sore throat Cardiovascular: Reports leg swelling, Denies chest pain, Denies foot swelling, Denies generalized swelling, Denies shortness of breath Respiratory: Denies chest congestion, Denies cough, Denies shortness of breath Gastrointestinal: Denies abdominal pain, Denies nausea, Denies pain with swallowing, Denies vomiting Genitourinary: Denies difficulty urinating, Denies painful urination Musculoskeletal: Denies back pain, Denies joint pain, Denies joint swelling, Denies neck pain Skin/Breast: Denies rash, Denies sores, Denies wounds PMFSH - History History Provided By: Patient, Significant Other - Medical History Medical History: Medical History (Last Reviewed 05/01/18 @ 14:21 by Teresa Calderon MD) Hypertension - Surgical History Surgical History: Surgical History (Last Reviewed 05/01/18 @ 14:21 by Teresa Calderon MD) No history of previous surgery - Family History Family History: Family History (Last Reviewed 05/01/18 @ 14:21 by Teresa Calderon MD) Other Diabetes - Tobacco History Second Hand Smoke Exposure: No Smoking Status: Never smoker - Alcohol History How Often Do You Have a Drink Containing Alcohol: 4 or more times a week - Substance Use History Substance History: No History of Abuse - Travel History Recent Travel in the [place] Within the Last 8 Weeks: No Recent Travel Out of the Country Within the Last 8 Weeks: No - Immunization History Tetanus Immunization: Unable to Assess Hx Influenza Vaccine This Season: No Medications and Allergies Active Medications: Active Medications Acetaminophen (Tylenol) 650 mg PO Q6H PRN PRN Reason: TEMPERATURE > 101 F Albuterol (Duoneb Neb (Prn)) 1 ampul NEB Q2HR NEB PRN PRN Reason: WHEEZING Atorvastatin Calcium (Lipitor) 80 mg PO DAILY [facility] Last Admin: 05/01/18 09:20 Dose: 80 mg Chlorhexidine Gluconate (Chlorhexidine 2% Cloth) 3 pack TOPICAL DAILY@0400 [facility] Stop: 05/05/18 03:59 Last Admin: 05/01/18 06:45 Dose: Not Given Chlorhexidine Gluconate (Chlorhexidine 2% Cloth) 3 pack TOPICAL DAILY@0400 PRN PRN Reason: Extra cloth needed Stop: 05/05/18 03:59 Dextrose (D50w Vial) 50 ml IV.PUSH UNSCH PRN PRN Reason: PER HYPOGLYCEMIA PROTOCOL Enalaprilat (Vasotec Inj) 1.25 mg IV.PUSH Q4H PRN PRN Reason: For SBP > 220 or DBP > 120 Last Admin: 04/29/18 19:46 Dose: 1.25 mg Famotidine (Pepcid) 20 mg PO BID [facility] Last Admin: 05/01/18 09:20 Dose: 20 mg Glucagon (Glucagon Inj) 1 mg OTHER UNSCH PRN PRN Reason: for Hypoglycemia Protocol Sodium Chloride (Ns Inj) 1,000 mls @ 70 mls/hr IV.CONT .[id number] [facility] Last Admin: 05/01/18 00:04 Dose: 70 mls/hr Heparin Sodium/Dextrose (Heparin/D5w 25,000 U/250 Ml) 25,000 unit in 250 mls @ 10 mls/hr IV.CONT TITRATE PRN; Protocol PRN Reason: Per Protocol Last Admin: 05/01/18 07:25 Dose: 1,300 units/hr, 13 mls/hr Potassium Chloride (Kcl 40 Meq Premix Inj) 40 meq in 100 mls @ 25 mls/hr IV.SIG Q2H PRN PRN Reason: For Potassium 2.8 - 3.2 mEq/L Potassium Chloride (Kcl 20 Meq Premix Inj) 20 meq in 100 mls @ 50 mls/hr IV.SIG Q2H PRN PRN Reason: For Potassium 3.3 - 3.5 mEq/L Last Infusion: 04/30/18 05:28 Dose: Infused Potassium Chloride (Kcl 40 Meq Premix Inj) 40 meq in 100 mls @ 25 mls/hr IV.SIG UNSCH PRN PRN Reason: For Potassium 3.3 - 3.5 mEq/L Sodium Phosphate 30 mmol/ (Sodium Chloride) 260 mls @ 42 mls/hr IV.SIG UNSCH PRN PRN Reason: For Phosphorus < 2.5 mg/dL Potassium Phosphate 30 mmol/ (Sodium Chloride) 260 mls @ 42 mls/hr IV.SIG UNSCH PRN PRN Reason: SEE LABEL COMMENTS Magnesium Sulfate 4 gm/ Sodium (Chloride) 100 mls @ 50 mls/hr IV.SIG UNSCH PRN PRN Reason: For Magnesium 0.9 - 1.1 mg/dL Potassium Chloride (Kcl 20 Meq Premix Inj) 20 meq in 100 mls @ 50 mls/hr IV.SIG Q2H PRN PRN Reason: For Potassium 2.8 - 3.2 mEq/L Magnesium Sulfate 2 gm/ Sodium (Chloride) 100 mls @ 50 mls/hr IV.SIG UNSCH PRN PRN Reason: For Magnesium 1.2 - 1.6 mg/dL Nicardipine HCl 25 mg/ Sodium (Chloride) 250 mls @ 50 mls/hr IV.CONT TITRATE PRN; Protocol PRN Reason: Per Protocol Phenylephrine HCl 40 mg/ (Sodium Chloride) 500 mls @ 30 mls/hr IV.CONT TITRATE PRN; Protocol PRN Reason: Per Protocol Last Admin: 05/01/18 09:53 Dose: 120 mcg/min, 90 mls/hr Magnesium Oxide (Mag-Ox) 800 mg PO UNSCH PRN PRN Reason: For Magnesium 1.2 - 1.6 mg/dL Ondansetron HCl (Zofran Inj) 4 mg IV.PUSH Q6H PRN PRN Reason: NAUSEA OR VOMITING Potassium Chloride (Kcl Liq) 40 meq PO UNSCH PRN PRN Reason: Potassium level 3.3-3.5 mEq/L Potassium Chloride (Kcl Liq) 40 meq PO UNSCH PRN PRN Reason: POTASSIUM LESS THAN 3.5 Potassium Phosphate (K-Phos Original) 2,000 mg PO Q4H PRN PRN Reason: Phosphorus Less Than 2.5 mg/dL Potassium Phosphate (K-Phos Original) 2,000 mg PO UNSCH PRN PRN Reason: SEE LABEL COMMENTS Sodium Chloride (Ns Flush) 2 ml IV.FLUSH BID [facility] Last Admin: 05/01/18 09:20 Dose: 2 ml Sodium Chloride (Ns Flush) 2 ml IV.FLUSH PRN PRN PRN Reason: FLUSH AFTER USING IV ACCESS Terbutaline Sulfate (Brethine Inj) 1 mg SQ UNSCH PRN PRN Reason: For Extravasation Warfarin Sodium (Coumadin) 5 mg PO DAILY@1600 [facility] Last Admin: 04/30/18 16:12 Dose: 5 mg Allergies Allergy/AdvReac Type Severity Reaction Status Date / Time No Known Allergies Allergy Verified 04/29/18 16:19 Home Medications Medication Instructions Recorded Confirmed Type Cjc 1295 IM DAILY 04/29/18 History amoxicillin 500 mg PO TID 04/29/18 04/29/18 History tadalafil 5 mg PO DAILY 04/29/18 04/29/18 History telmisartan-hydrochlorothiazid 1 tab PO DAILY 04/29/18 04/29/18 History testosterone enanthate mg SUBCUT QTUTH 04/29/18 History Exam Vital signs: Vital Signs 04/30/18 15:00 04/30/18 15:10 04/30/18 15:27 Temperature Pulse Rate 87 90 87 Respiratory Rate 20 24 19 Blood Pressure 118/89 163/102 H 175/110 H Pulse Oximetry 94 L 95 94 L 04/30/18 15:37 04/30/18 15:53 04/30/18 16:00 Temperature 98.1 F Pulse Rate 102 H 99 H 102 H Respiratory Rate 20 23 22 Blood Pressure 167/96 H 183/105 H 187/105 H Pulse Oximetry 97 96 98 04/30/18 17:00 04/30/18 17:51 04/30/18 17:53 Temperature Pulse Rate 100 H 90 83 Respiratory Rate 25 H 19 19 Blood Pressure 174/99 H 154/88 H 152/89 H Pulse Oximetry 98 97 95 04/30/18 18:00 04/30/18 18:12 04/30/18 18:22 Temperature Pulse Rate 96 H 93 H 89 Respiratory Rate 23 30 H 24 Blood Pressure 144/88 H 182/104 H 164/100 H Pulse Oximetry 97 96 97 04/30/18 18:36 04/30/18 18:51 04/30/18 19:00 Temperature Pulse Rate 92 H 100 H 100 H Respiratory Rate 22 24 23 Blood Pressure 171/102 H 191/118 H Pulse Oximetry 98 98 98 04/30/18 19:06 04/30/18 20:00 04/30/18 20:05 Temperature 99.0 F Pulse Rate 96 H 93 H Respiratory Rate 23 21 Blood Pressure 182/111 H 175/107 H Pulse Oximetry 97 96 97 04/30/18 20:21 04/30/18 20:51 04/30/18 21:00 Temperature Pulse Rate 87 88 90 Respiratory Rate 24 24 27 H Blood Pressure 165/101 H 159/100 H 165/106 H Pulse Oximetry 95 97 98 04/30/18 21:06 04/30/18 21:36 04/30/18 22:00 Temperature Pulse Rate 78 84 76 Respiratory Rate 23 27 H 23 Blood Pressure 165/106 H 169/107 H 166/109 H Pulse Oximetry 97 97 98 04/30/18 22:21 04/30/18 22:36 04/30/18 22:51 Temperature Pulse Rate 87 80 77 Respiratory Rate 24 21 21 Blood Pressure 169/105 H 159/100 H 170/105 H Pulse Oximetry 98 95 96 04/30/18 23:00 04/30/18 23:21 05/01/18 00:00 Temperature 98.5 F Pulse Rate 72 70 82 Respiratory Rate 19 21 19 Blood Pressure 174/107 H 187/112 H 171/107 H Pulse Oximetry 95 96 95 05/01/18 00:21 05/01/18 01:00 05/01/18 01:21 Temperature Pulse Rate 72 68 69 Respiratory Rate 23 19 19 Blood Pressure 182/100 H 161/105 H 179/96 H Pulse Oximetry 96 96 96 05/01/18 01:36 05/01/18 02:00 05/01/18 03:00 Temperature Pulse Rate 71 70 81 Respiratory Rate 21 22 26 H Blood Pressure 180/101 H 157/92 H 184/103 H Pulse Oximetry 96 96 97 05/01/18 04:00 05/01/18 05:00 05/01/18 06:00 Temperature 98.6 F Pulse Rate 57 L 67 65 Respiratory Rate 22 19 24 Blood Pressure 186/94 H 181/94 H 173/98 H Pulse Oximetry 96 96 96 05/01/18 06:12 05/01/18 06:21 05/01/18 06:36 Temperature Pulse Rate 65 78 61 Respiratory Rate 23 21 Blood Pressure 171/99 H 174/97 H Pulse Oximetry 96 97 05/01/18 06:51 05/01/18 07:00 05/01/18 07:06 Temperature Pulse Rate 72 61 63 Respiratory Rate 24 21 20 Blood Pressure 188/106 H 179/106 H Pulse Oximetry 97 96 96 05/01/18 07:21 05/01/18 07:36 05/01/18 07:51 Temperature Pulse Rate 70 70 90 Respiratory Rate 22 26 H 22 Blood Pressure 185/106 H 193/104 H 200/108 H Pulse Oximetry 96 97 97 05/01/18 08:00 05/01/18 08:06 05/01/18 08:21 Temperature 98.1 F Pulse Rate 89 86 89 Respiratory Rate 25 H 16 11 L Blood Pressure 176/90 H 157/85 H Pulse Oximetry 97 96 95 05/01/18 08:36 05/01/18 08:51 05/01/18 09:00 Temperature Pulse Rate 89 83 93 H Respiratory Rate 23 22 17 Blood Pressure 151/90 H 172/96 H Pulse Oximetry 95 95 97 05/01/18 09:06 05/01/18 09:18 05/01/18 09:21 Temperature Pulse Rate 131 H 100 H 96 H Respiratory Rate 22 38 H 29 H Blood Pressure 197/120 H 192/117 H 187/111 H Pulse Oximetry 99 96 96 05/01/18 09:36 05/01/18 09:51 05/01/18 10:00 Temperature Pulse Rate 88 103 H 87 Respiratory Rate 27 H 22 17 Blood Pressure 159/93 H 174/112 H Pulse Oximetry 95 97 95 05/01/18 10:06 05/01/18 10:21 05/01/18 10:36 Temperature Pulse Rate 84 87 84 Respiratory Rate 22 12 20 Blood Pressure 169/110 H 172/111 H 165/94 H Pulse Oximetry 96 98 98 05/01/18 10:51 05/01/18 10:54 05/01/18 11:00 Temperature Pulse Rate 73 73 74 Respiratory Rate 13 19 20 Blood Pressure 165/98 H 171/102 H Pulse Oximetry 96 97 96 05/01/18 11:06 05/01/18 11:21 05/01/18 11:36 Temperature Pulse Rate 72 92 H 87 Respiratory Rate 20 20 22 Blood Pressure 166/100 H 203/106 H 183/99 H Pulse Oximetry 96 97 98 05/01/18 11:51 05/01/18 12:00 05/01/18 12:06 Temperature 98.2 F Pulse Rate 91 H 89 95 H Respiratory Rate 20 24 14 Blood Pressure 173/95 H 200/117 H Pulse Oximetry 97 96 98 05/01/18 12:21 05/01/18 12:25 05/01/18 12:36 Temperature Pulse Rate 92 H 92 H 90 Respiratory Rate 15 21 20 Blood Pressure 166/99 H 155/100 H 169/95 H Pulse Oximetry 96 96 96 05/01/18 12:51 05/01/18 13:00 05/01/18 13:06 Temperature Pulse Rate 94 H 89 89 Respiratory Rate 24 26 H 26 H Blood Pressure 158/91 H 155/88 H Pulse Oximetry 97 96 96 Intake & Output 04/30/18 05/01/18 05/01/18 18:59 06:59 18:59 Intake Total 1210 / 1210 1500 / 1500 750 / 750 Output Total 2175 / 2175 Balance 1210 / 1210 -675 / -675 750 / 750 Intake: IV 1210 / 1210 1500 / 1500 750 / 750 Heparin/D5W 25,000 U/250 mL 25, 210 / 210 250 / 250 000 unit In 250 ml @ As Directed 10 mls/hr IV.CONT TITRATE PRN Rx#:[id number] Neosynephrine Inj 40 MG In NS 500 / 500 500 / 500 Inj 496 ML @ 40 MCG/MIN 30 mls/ hr IV.CONT TITRATE PRN Rx#: [id number] NS Inj 1,000 ML @ 70 mls/hr IV. 1000 / 1000 1000 / 1000 CONT .[id number] MAIK Rx#: [id number] Oral 0 / 0 Output: Urine 2174 / 2175 Other: # Voids 5 Date of Last Bowel Movement 04/29/18 04/29/18 04/29/18 # Bowel Movements 0 Narrative: Physical Examination GENERAL: Patient is a well-nourished, well-developed male, awake and alert, not in respiratory distress. SKIN: Warm and dry. No generalized rash, no ecchymoses and no evidence of embolic lesions. HEAD: Atraumatic. Normocephalic. No temporal wasting, or tenderness. EYES: [place] conjunctiva. No petechia or hemorrhage. Pupils equal, round and reactive to light. Extraocular movements full and intact. No scleral icterus. No injection or drainage. EARS, NOSE AND THROAT: Nose without bleeding or purulent nasal discharge. No sinus tenderness. Mucous membranes pink and moist. No oral lesions noted. No exudate. No oral thrush. NECK: Trachea midline. Supple and not tender, no meningeal signs CARDIOVASCULAR: Regular rate and rhythm. No murmurs, rubs or gallops heard RESPIRATORY: Clear to auscultation. Breath sounds equal bilaterally. No rales , wheezing or rhonchi ABDOMEN: Soft, non-tender, nondistended. Bowel sounds present and normoactive. No guarding. No rebound. No organomegaly. EXTREMITIES: No clubbing, cyanosis, or edema.No joint effusion, has good ROM. No calf tenderness. Well perfused and warm. NEUROLOGICAL: Awake and alert. No facial asymmetry, speech is clear. Motor grossly within normal limits. No Babinski, no ankle clonus PSYCHIATRIC: Normal affect, calm and cooperative. LINE: No evidence of infection Results - Labs CBC & Chem 7: 05/01/18 02:44 05/01/18 02:44 Labs: Laboratory Results - last 24 hr 04/29/18 04/30/18 04/30/18 19:30 04:46 12:07 WBC RBC Hgb Hct MCV MCH MCHC RDW Plt Count MPV Neut % (Auto) Lymph % (Auto) [place] % (Auto) Eos % (Auto) Baso % (Auto) Neut # (Auto) Lymph # (Auto) [place] # (Auto) Eos # (Auto) Baso # (Auto) WBC Differential Differential Comment PT INR APTT 30.0 Sodium Potassium Chloride Carbon Dioxide Anion Gap BUN Creatinine Estimated GFR Random Glucose Hemoglobin A1c 5.0 Calcium Phosphorus Magnesium MANNIE Screen Neg 04/30/18 05/01/18 05/01/18 19:33 02:44 02:44 WBC 10.8 RBC 4.68 Hgb 15.9 Hct 46.2 MCV 98.6 MCH 33.9 MCHC 34.4 RDW 13.4 Plt Count 274 MPV 9.5 Neut % (Auto) 56.0 Lymph % (Auto) 32.7 [place] % (Auto) 9.5 H Eos % (Auto) 0.9 Baso % (Auto) 0.9 Neut # (Auto) 6.1 Lymph # (Auto) 3.5 [place] # (Auto) 1.0 H Eos # (Auto) 0.1 Baso # (Auto) 0.1 WBC Differential . Differential Comment Auto diff final PT INR APTT 39.0 H D Sodium 140 Potassium 4.0 Chloride 107 Carbon Dioxide 23.8 Anion Gap 9 BUN 7 Creatinine 0.82 Estimated GFR Greater than 89 Random Glucose 88 Hemoglobin A1c Calcium 8.0 L Phosphorus 2.3 L Magnesium 2.0 MANNIE Screen 05/01/18 05/01/18 02:44 08:39 WBC RBC Hgb Hct MCV MCH MCHC RDW Plt Count MPV Neut % (Auto) Lymph % (Auto) [place] % (Auto) Eos % (Auto) Baso % (Auto) Neut # (Auto) Lymph # (Auto) [place] # (Auto) Eos # (Auto) Baso # (Auto) WBC Differential Differential Comment PT 10.5 INR 1.0 APTT 43.0 H 40.2 H Sodium Potassium Chloride Carbon Dioxide Anion Gap BUN Creatinine Estimated GFR Random Glucose Hemoglobin A1c Calcium Phosphorus Magnesium MANNIE Screen - Imaging Neck CTA 04/29/18 00:00 CONCLUSION: 1. 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 2. The right carotid artery and both vertebral arteries are patent. Head MRA 04/29/18 17:42 CONCLUSION: 1. Occluded left internal carotid artery. 2. Patent anterior and middle cerebral arteries bilaterally. 3. Decreased opacification of the proximal portion of the right posterior cerebral artery compared to the left but normal filling of the distal branch of the right posterior cerebral artery. 4. Patent posterior communicating arteries bilaterally. Head CT 04/29/18 18:17 CONCLUSION: 1. No acute intracranial abnormalities. 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 Report was called by Dr. Cast to Dr. Villatoro at 6:30 PM. Head MRI 04/29/18 18:54 CONCLUSION: 1. Small infarct on the left measuring up to around 2.2 cm in diameter involving predominantly the deep white matter of the posterior left frontal lobe extending towards the motor cortex. No associated hemorrhage or mass effect. No abnormal enhancement. CT CAD 04/29/18 21:41 CONCLUSION: Physiological brain perfusion parameters with RAPID analysis as above. The decision for consideration of therapy is multi factorial and multi disciplinary relying on subjective and objective clinical data. This data is not construed or intended to be the sole determinant of treatment eligibility. Assessment and Plan - Plan IMpression One (+) BC out of 2 with GPR, ?real vs contaminant - usually Strep the most common pathogen in dental infection Recent Hx tooth infection, usually oral anaerobes and Strep the culprit CVA Hypertension Recommendation Repeat 2 BC For CARY on Sunday Follow BC results Follow temps Will monitor off Abx I will follow with you Thank you for this consultation Explained plan to patient
--- NOTE | 2018-05-01 22:38 | HM ---
Date Performed: 04/30/2018 Time Performed: 11:23:00 HOOKUP DATE: 04/30/18 11:23:00 AM Tue ANALYSIS START TIME: 04/30/2018 11:28:00 AM ANALYSIS END TIME: 05/01/2018 11:32:00 AM PATIENT AGE: 47 PATIENT HEIGHT PATIENT WEIGHT DRUG LIST PATIENT DIAGNOSIS: TIA TEST NARRATIVE: The patient's average heart rate was 87 BPM. Heart rates greater than 120 B PM were noted 1% of the time. Heart rates less than 50 BPM were noted < 1% of the time. No pause s exceeding 2.0 seconds were noted. 101 ventricular ectopics, which represented < 1% of the total beat count, were noted. The highest ventricular ectopic frequency occurred from 02:00 AM to 03:00 A M Wed. During this time 10 VE(s) occurred. Ventricular ectopics were observed as 101 isolated beat( s) only. No couplets or runs were noted. 13 supraventricular ectopics, which represented < 1% of the total beat count, were noted. The highest supraventricular ectopic frequency occurred from 05:0 0 AM to 06:00 AM Wed. During this time 6 SVE(s) occurred. In channel 1, a single episode of ST d epression (defined as -1.0 mm or more) occurred at 10:31:02 AM Wed with a maximum depression of -1.7 mm. In channel 2, a single episode of ST depression (defined as -1.0 mm or more) occurred at 10:30:2 7 AM Wed with a maximum depression of -1.5 mm[address] No episodes of ST depression (defined as -1.0 mm or m ore) were noted in channel 3. TEST INTERPRETATION: 1. predominant underlying rhythm is sinus 2. Occasional PACs and PVCs 3. No pauses greater than 2.0 sec noted 4. No Afib or ventricular tachyarrythmias noted Signed by : Vince Gimenez
[2018-05-02] MEDS: Heparin Drip 25,000 UNIT/250 ML BAG IV.CONT PRN ×2 (01:45→17:19)
[2018-05-02] MEDS: Sod Chloride 0.9% Inj 1,000 ML IV.CONT SCH ×2 (02:46→16:10)
[2018-05-02] MEDS: Chlorhexidine Gluconate 2% 1 Pack (2 Cloths) TOPICAL SCH (03:56)
[2018-05-02] MEDS: Phenylephrine Inj 40 MG in Sodium Chlor 0.9% Inj 496 ML IV.CONT PRN (05:49)
[2018-05-02 06:10] LABS: Baso # (Auto) 0.1 th/mm3 (0.0-0.2); Baso % (Auto) 0.6 % (0.0-2.0); Eos # (Auto) 0.1 th/mm3 (0.0-0.4); Eos % (Auto) 0.8 % (0.0-4.0); Hematocrit 47.1 % (39.0-51.0); Hemoglobin 16.2 gm/dL (13.0-17.0); Lymph # (Auto) 3.2 th/mm3 (1.0-4.8); Lymph % (Auto) 26.3 % (9.0-44.0); Mean Corpuscular HGB Conc 34.3 % (32.0-36.0); Mean Corpuscular Hemoglobin 33.5 pg (27.0-34.0); Mean Corpuscular Volume 97.4 fL (80.0-100.0); Mean Platelet Volume 9.3 fL (7.0-11.0); Mono # (Auto) 1.3 th/mm3 (0.0-0.9); Mono % (Auto) 10.8 % (0.0-8.0); Neut # (Auto) 7.4 th/mm3 (1.8-7.7); Neut % (Auto) 61.5 % (16.0-70.0); Platelet Count 284 th/mm3 (150-450); Red Blood Count 4.83 mil/mm3 (4.50-5.90); Red Cell Distribution Width 13.1 % (11.6-17.2); White Blood Count 12.1 th/mm3 (4.0-11.0)
[2018-05-02 06:18] LABS: Activated Partial Thrombo Time 40.4 sec (23.4-31.7); Prothrombin Time 10.6 sec (9.8-11.6)
[2018-05-02 06:37] LABS: Anion Gap 9 meq/L (5-15); Blood Urea Nitrogen 7 mg/dL (7-18); Calcium 8.6 mg/dL (8.5-10.1); Carbon Dioxide 24.7 meq/L (21.0-32.0); Chloride 107 meq/L (98-107); Glomerular Filtration Rate Greater Than 89 mL/min (>89); Glucose,Random 91 mg/dL (74-106); Potassium 3.6 meq/L (3.5-5.1); Sodium 141 meq/L (136-145)
[2018-05-02] MEDS: Famotidine 20 MG Tablet PO SCH ×2 (08:02→21:44)
--- NOTE | 2018-05-02 08:43 | P.PNNEU ---
Subjective Active Medications: Active Medications Acetaminophen (Tylenol) 650 mg PO Q6H PRN PRN Reason: TEMPERATURE > 101 F Albuterol (Duoneb Neb (Prn)) 1 ampul NEB Q2HR NEB PRN PRN Reason: WHEEZING Atorvastatin Calcium (Lipitor) 80 mg PO DAILY [facility] Last Admin: 05/02/18 08:02 Dose: 80 mg Chlorhexidine Gluconate (Chlorhexidine 2% Cloth) 3 pack TOPICAL DAILY@0400 [facility] Stop: 05/05/18 03:59 Last Admin: 05/02/18 03:56 Dose: Not Given Chlorhexidine Gluconate (Chlorhexidine 2% Cloth) 3 pack TOPICAL DAILY@0400 PRN PRN Reason: Extra cloth needed Stop: 05/05/18 03:59 Dextrose (D50w Vial) 50 ml IV.PUSH UNSCH PRN PRN Reason: PER HYPOGLYCEMIA PROTOCOL Enalaprilat (Vasotec Inj) 1.25 mg IV.PUSH Q4H PRN PRN Reason: For SBP > 220 or DBP > 120 Last Admin: 04/29/18 19:46 Dose: 1.25 mg Famotidine (Pepcid) 20 mg PO BID [facility] Last Admin: 05/02/18 08:02 Dose: 20 mg Glucagon (Glucagon Inj) 1 mg OTHER UNSCH PRN PRN Reason: for Hypoglycemia Protocol Sodium Chloride (Ns Inj) 1,000 mls @ 70 mls/hr IV.CONT .[id number] [facility] Last Admin: 05/02/18 02:46 Dose: 70 mls/hr Heparin Sodium/Dextrose (Heparin/D5w 25,000 U/250 Ml) 25,000 unit in 250 mls @ 10 mls/hr IV.CONT TITRATE PRN; Protocol PRN Reason: Per Protocol Last Titration: 05/02/18 06:24 Dose: 1,300 units/hr, 13 mls/hr Potassium Chloride (Kcl 40 Meq Premix Inj) 40 meq in 100 mls @ 25 mls/hr IV.SIG Q2H PRN PRN Reason: For Potassium 2.8 - 3.2 mEq/L Potassium Chloride (Kcl 20 Meq Premix Inj) 20 meq in 100 mls @ 50 mls/hr IV.SIG Q2H PRN PRN Reason: For Potassium 3.3 - 3.5 mEq/L Last Infusion: 04/30/18 05:28 Dose: Infused Potassium Chloride (Kcl 40 Meq Premix Inj) 40 meq in 100 mls @ 25 mls/hr IV.SIG UNSCH PRN PRN Reason: For Potassium 3.3 - 3.5 mEq/L Sodium Phosphate 30 mmol/ (Sodium Chloride) 260 mls @ 42 mls/hr IV.SIG UNSCH PRN PRN Reason: For Phosphorus < 2.5 mg/dL Potassium Phosphate 30 mmol/ (Sodium Chloride) 260 mls @ 42 mls/hr IV.SIG UNSCH PRN PRN Reason: SEE LABEL COMMENTS Magnesium Sulfate 4 gm/ Sodium (Chloride) 100 mls @ 50 mls/hr IV.SIG UNSCH PRN PRN Reason: For Magnesium 0.9 - 1.1 mg/dL Potassium Chloride (Kcl 20 Meq Premix Inj) 20 meq in 100 mls @ 50 mls/hr IV.SIG Q2H PRN PRN Reason: For Potassium 2.8 - 3.2 mEq/L Magnesium Sulfate 2 gm/ Sodium (Chloride) 100 mls @ 50 mls/hr IV.SIG UNSCH PRN PRN Reason: For Magnesium 1.2 - 1.6 mg/dL Nicardipine HCl 25 mg/ Sodium (Chloride) 250 mls @ 50 mls/hr IV.CONT TITRATE PRN; Protocol PRN Reason: Per Protocol Phenylephrine HCl 40 mg/ (Sodium Chloride) 500 mls @ 30 mls/hr IV.CONT TITRATE PRN; Protocol PRN Reason: Per Protocol Last Titration: 05/02/18 08:31 Dose: 90 mcg/min, 67.5 mls/hr Magnesium Oxide (Mag-Ox) 800 mg PO UNSCH PRN PRN Reason: For Magnesium 1.2 - 1.6 mg/dL Ondansetron HCl (Zofran Inj) 4 mg IV.PUSH Q6H PRN PRN Reason: NAUSEA OR VOMITING Potassium Chloride (Kcl Liq) 40 meq PO UNSCH PRN PRN Reason: Potassium level 3.3-3.5 mEq/L Potassium Chloride (Kcl Liq) 40 meq PO UNSCH PRN PRN Reason: POTASSIUM LESS THAN 3.5 Potassium Phosphate (K-Phos Original) 2,000 mg PO Q4H PRN PRN Reason: Phosphorus Less Than 2.5 mg/dL Potassium Phosphate (K-Phos Original) 2,000 mg PO UNSCH PRN PRN Reason: SEE LABEL COMMENTS Sodium Chloride (Ns Flush) 2 ml IV.FLUSH BID [facility] Last Admin: 05/02/18 08:03 Dose: 2 ml Sodium Chloride (Ns Flush) 2 ml IV.FLUSH PRN PRN PRN Reason: FLUSH AFTER USING IV ACCESS Terbutaline Sulfate (Brethine Inj) 1 mg SQ UNSCH PRN PRN Reason: For Extravasation Warfarin Sodium (Coumadin) 5 mg PO DAILY@1600 [facility] Last Admin: 05/01/18 16:15 Dose: 5 mg Allergies/Adverse Reactions: Allergies Allergy/AdvReac Type Severity Reaction Status Date / Time No Known Allergies Allergy Verified 04/29/18 16:19 Physical Exam Vital signs: Vital Signs 05/01/18 08:51 05/01/18 09:00 05/01/18 09:06 Temperature Pulse Rate 83 93 H 131 H Respiratory Rate 22 17 22 Blood Pressure 172/96 H 197/120 H Pulse Oximetry 95 97 99 05/01/18 09:18 05/01/18 09:21 05/01/18 09:36 Temperature Pulse Rate 100 H 96 H 88 Respiratory Rate 38 H 29 H 27 H Blood Pressure 192/117 H 187/111 H 159/93 H Pulse Oximetry 96 96 95 05/01/18 09:51 05/01/18 10:00 05/01/18 10:06 Temperature Pulse Rate 103 H 87 84 Respiratory Rate 22 17 22 Blood Pressure 174/112 H 169/110 H Pulse Oximetry 97 95 96 05/01/18 10:21 05/01/18 10:36 05/01/18 10:51 Temperature Pulse Rate 87 84 73 Respiratory Rate 12 20 13 Blood Pressure 172/111 H 165/94 H 165/98 H Pulse Oximetry 98 98 96 05/01/18 10:54 05/01/18 11:00 05/01/18 11:06 Temperature Pulse Rate 73 74 72 Respiratory Rate 19 20 20 Blood Pressure 171/102 H 166/100 H Pulse Oximetry 97 96 96 05/01/18 11:21 05/01/18 11:36 05/01/18 11:51 Temperature Pulse Rate 92 H 87 91 H Respiratory Rate 20 22 20 Blood Pressure 203/106 H 183/99 H 173/95 H Pulse Oximetry 97 98 97 05/01/18 12:00 05/01/18 12:06 05/01/18 12:21 Temperature 98.2 F Pulse Rate 89 95 H 92 H Respiratory Rate 24 14 15 Blood Pressure 200/117 H 166/99 H Pulse Oximetry 96 98 96 05/01/18 12:25 05/01/18 12:36 05/01/18 12:51 Temperature Pulse Rate 92 H 90 94 H Respiratory Rate 21 20 24 Blood Pressure 155/100 H 169/95 H 158/91 H Pulse Oximetry 96 96 97 05/01/18 13:00 05/01/18 13:06 05/01/18 13:21 Temperature Pulse Rate 89 89 81 Respiratory Rate 26 H 26 H 18 Blood Pressure 155/88 H 158/94 H Pulse Oximetry 96 96 95 05/01/18 13:36 05/01/18 13:51 05/01/18 14:00 Temperature Pulse Rate 75 71 71 Respiratory Rate 20 21 22 Blood Pressure 146/78 H 158/86 H Pulse Oximetry 95 96 96 05/01/18 14:06 05/01/18 14:21 05/01/18 14:36 Temperature Pulse Rate 103 H 85 96 H Respiratory Rate 31 H 28 H 24 Blood Pressure 199/119 H 181/97 H 179/98 H Pulse Oximetry 98 95 99 05/01/18 14:51 05/01/18 15:00 05/01/18 15:06 Temperature Pulse Rate 86 82 84 Respiratory Rate 20 23 23 Blood Pressure 177/99 H 188/103 H Pulse Oximetry 97 97 97 05/01/18 15:21 05/01/18 15:36 05/01/18 15:51 Temperature Pulse Rate 93 H 79 80 Respiratory Rate 18 19 24 Blood Pressure 187/106 H 172/104 H 179/111 H Pulse Oximetry 97 95 96 05/01/18 16:00 05/01/18 16:06 05/01/18 16:21 Temperature Pulse Rate 78 88 85 Respiratory Rate 21 25 H 23 Blood Pressure 175/111 H 184/107 H Pulse Oximetry 97 96 97 05/01/18 16:36 05/01/18 16:51 05/01/18 17:00 Temperature Pulse Rate 74 84 74 Respiratory Rate 25 H 25 H 28 H Blood Pressure 169/101 H 178/104 H Pulse Oximetry 97 96 96 05/01/18 17:06 05/01/18 17:21 05/01/18 17:36 Temperature Pulse Rate 80 87 88 Respiratory Rate 25 H 37 H 29 H Blood Pressure 184/107 H 184/109 H 202/108 H Pulse Oximetry 97 97 97 05/01/18 17:51 05/01/18 18:00 05/01/18 18:06 Temperature Pulse Rate 85 80 87 Respiratory Rate 22 28 H 24 Blood Pressure 197/108 H 201/109 H Pulse Oximetry 96 97 97 05/01/18 19:06 05/01/18 19:21 05/01/18 19:36 Temperature Pulse Rate 80 89 82 Respiratory Rate 18 18 18 Blood Pressure 193/107 H 180/108 H 182/95 H Pulse Oximetry 98 98 98 05/01/18 19:51 05/01/18 20:00 05/01/18 20:06 Temperature Pulse Rate 75 82 80 Respiratory Rate 17 17 20 Blood Pressure 174/92 H 182/99 H Pulse Oximetry 97 98 97 05/01/18 20:21 05/01/18 20:36 05/01/18 20:51 Temperature 98.6 F Pulse Rate 78 78 82 Respiratory Rate 20 16 16 Blood Pressure 173/99 H 170/99 H 175/104 H Pulse Oximetry 97 99 98 05/01/18 21:00 05/01/18 21:06 05/01/18 21:12 Temperature Pulse Rate 90 90 93 H Respiratory Rate 20 20 18 Blood Pressure 198/114 H 216/119 H Pulse Oximetry 98 99 98 05/01/18 21:21 05/01/18 21:25 05/01/18 21:36 Temperature Pulse Rate 76 80 Respiratory Rate 20 21 Blood Pressure 200/105 H 202/108 H Pulse Oximetry 98 95 98 05/01/18 21:51 05/01/18 21:56 05/01/18 22:00 Temperature Pulse Rate 70 84 84 Respiratory Rate 24 16 23 Blood Pressure 217/122 H Pulse Oximetry 99 99 99 05/01/18 22:05 05/01/18 22:06 05/01/18 22:21 Temperature Pulse Rate 66 72 87 Respiratory Rate 20 20 Blood Pressure 208/116 H 211/114 H Pulse Oximetry 99 99 05/01/18 22:36 05/01/18 22:51 05/01/18 23:00 Temperature Pulse Rate 98 H 87 84 Respiratory Rate 20 18 24 Blood Pressure 201/120 H 222/124 H Pulse Oximetry 99 98 99 05/01/18 23:06 05/01/18 23:21 05/01/18 23:36 Temperature Pulse Rate 71 67 70 Respiratory Rate 24 15 13 Blood Pressure 217/124 H 197/111 H 200/114 H Pulse Oximetry 98 98 98 05/01/18 23:51 05/02/18 00:00 05/02/18 00:06 Temperature Pulse Rate 73 71 73 Respiratory Rate 19 14 19 Blood Pressure 176/105 H 181/103 H Pulse Oximetry 98 98 98 05/02/18 00:21 05/02/18 00:36 05/02/18 00:51 Temperature Pulse Rate 66 63 63 Respiratory Rate 18 21 13 Blood Pressure 163/99 H 169/100 H 162/98 H Pulse Oximetry 97 97 97 05/02/18 01:00 05/02/18 01:06 05/02/18 01:21 Temperature Pulse Rate 60 60 57 L Respiratory Rate 17 14 18 Blood Pressure 174/103 H 175/110 H Pulse Oximetry 97 97 97 05/02/18 01:36 05/02/18 01:51 05/02/18 02:00 Temperature Pulse Rate 58 L 56 L 66 Respiratory Rate 15 16 21 Blood Pressure 168/101 H 180/111 H Pulse Oximetry 98 97 98 05/02/18 02:06 05/02/18 02:21 05/02/18 02:36 Temperature Pulse Rate 55 L 55 L 54 L Respiratory Rate 24 21 21 Blood Pressure 195/105 H 196/109 H 198/115 H Pulse Oximetry 98 98 97 05/02/18 02:51 05/02/18 03:00 05/02/18 03:06 Temperature Pulse Rate 55 L 57 L 61 Respiratory Rate 21 20 24 Blood Pressure 181/112 H 189/101 H Pulse Oximetry 97 97 97 05/02/18 03:21 05/02/18 03:36 05/02/18 03:51 Temperature Pulse Rate 63 61 61 Respiratory Rate 20 23 12 Blood Pressure 159/86 H 177/99 H 173/97 H Pulse Oximetry 97 97 97 05/02/18 04:00 05/02/18 04:04 05/02/18 04:06 Temperature Pulse Rate 56 L 55 L 61 Respiratory Rate 20 20 Blood Pressure 171/101 H Pulse Oximetry 97 97 05/02/18 04:21 05/02/18 04:36 05/02/18 04:51 Temperature Pulse Rate 59 L 61 64 Respiratory Rate 21 20 21 Blood Pressure 183/105 H 177/101 H 166/100 H Pulse Oximetry 97 97 97 05/02/18 05:00 05/02/18 05:06 05/02/18 05:21 Temperature Pulse Rate 75 77 67 Respiratory Rate 23 21 19 Blood Pressure 202/114 H 181/101 H Pulse Oximetry 97 98 97 05/02/18 05:36 05/02/18 05:51 05/02/18 06:00 Temperature Pulse Rate 69 79 84 Respiratory Rate 20 16 21 Blood Pressure 168/99 H 182/103 H Pulse Oximetry 98 98 98 05/02/18 07:00 05/02/18 07:06 05/02/18 07:21 Temperature Pulse Rate 62 61 66 Respiratory Rate 19 18 23 Blood Pressure 175/110 H 189/102 H Pulse Oximetry 97 97 98 05/02/18 07:27 05/02/18 07:36 05/02/18 07:51 Temperature Pulse Rate 53 L 70 64 Respiratory Rate 19 22 Blood Pressure 199/107 H 200/107 H Pulse Oximetry 97 97 05/02/18 08:00 05/02/18 08:06 05/02/18 08:21 Temperature Pulse Rate 61 87 68 Respiratory Rate 19 32 H 14 Blood Pressure 181/105 H 183/110 H Pulse Oximetry 96 97 97 Intake & Output 05/01/18 05/02/18 05/02/18 18:59 06:59 18:59 Intake Total 2250 / 2250 3690 / 3690 Output Total 1999 Balance 2250 / 2250 1690 / 1690 Weight 82.4 kg Intake: IV 2250 / 2250 2250 / 2250 Heparin/D5W 25,000 U/250 mL 25, 250 / 250 250 / 250 000 unit In 250 ml @ As Directed 10 mls/hr IV.CONT TITRATE PRN Rx#:[id number] Neosynephrine Inj 40 MG In NS 1000 / 1000 1000 / 1000 Inj 496 ML @ 40 MCG/MIN 30 mls/ hr IV.CONT TITRATE PRN Rx#: [id number] NS Inj 1,000 ML @ 70 mls/hr IV. 1000 / 1000 1000 / 1000 CONT .[id number] MAIK Rx#: [id number] Oral 1440 / 1440 Output: Urine 1999 Other: # Voids 7 Date of Last Bowel Movement 04/29/18 04/29/18 04/29/18 # Bowel Movements 0 Narrative: sr vff face sym nl speech and repetition 5/5 Objective Laboratory Results - last 24 hr 04/29/18 05/01/18 05/02/18 19:30 08:39 05:08 WBC RBC Hgb Hct MCV MCH MCHC RDW Plt Count MPV Neut % (Auto) Lymph % (Auto) [place] % (Auto) Eos % (Auto) Baso % (Auto) Neut # (Auto) Lymph # (Auto) [place] # (Auto) Eos # (Auto) Baso # (Auto) WBC Differential Differential Comment PT 10.6 INR 1.0 APTT 40.2 H 40.4 H Sodium Potassium Chloride Carbon Dioxide Anion Gap BUN Creatinine Estimated GFR Random Glucose Calcium Phosphorus Magnesium MANNIE Screen Neg 05/02/18 05/02/18 05:08 05:08 WBC 12.1 H RBC 4.83 Hgb 16.2 Hct 47.1 MCV 97.4 MCH 33.5 MCHC 34.3 RDW 13.1 Plt Count 284 MPV 9.3 Neut % (Auto) 61.5 Lymph % (Auto) 26.3 [place] % (Auto) 10.8 H Eos % (Auto) 0.8 Baso % (Auto) 0.6 Neut # (Auto) 7.4 Lymph # (Auto) 3.2 [place] # (Auto) 1.3 H Eos # (Auto) 0.1 Baso # (Auto) 0.1 WBC Differential . Differential Comment Auto diff final PT INR APTT Sodium 141 Potassium 3.6 Chloride 107 Carbon Dioxide 24.7 Anion Gap 9 BUN 7 Creatinine 0.87 Estimated GFR Greater than 89 Random Glucose 91 Calcium 8.6 Phosphorus 3.0 Magnesium 2.0 MANNIE Screen Microbiology 04/29/18 19:30 Aerobic Blood Culture - Preliminary Blood - Peripheral gram positive rods Anaerobic Blood Culture - Preliminary No growth in 2 days 04/29/18 19:30 Aerobic Blood Culture - Preliminary Blood - Peripheral No growth in 2 days Anaerobic Blood Culture - Preliminary No growth in 2 days Review/Management - Review/Management Plan: imp he waxed and waned several times last pnm and at mri seemed to be talking nl i dw tech last pm some time later he seemed to worsen again and this am speech sign affected mri small area of cva left mca ct perfusion larger area at risk mra the left m2 clot seems to have cleared but after trifercation he is missing some mca branch flow on hep ivf keep bp up hob flat i dw no hx neck trauma coumadin when taking po fu echo holter hypercoag may do sagar when stable hx tooth infection fu blood cx and echo cards 05/01/18 much better on hep and coumadin plan if sagar sunday and at least cardionet if not loop do not drop bp during sagar can run today 170-180/ as he ran briefly 118/ yest w/o problems i dw nurse hob up a little ok to eat hyper pend echo nl sr here so far 05/02/18 for sagar today as one blood cx pos so did not want to wait until am bp ok now to 160-180/ hob 50 degrees ok on hep inr 1.0 no greens really looks well plan is sagar today recheck mra/i prob get oob in am
[2018-05-02 11:50] LABS: Homocysteine (Cardiovascular) 11.6 umol/L (<11.4)
[2018-05-02 15:53] LABS: Dil Russell Viper Venom Conf ( ND (NEGATIVE); Dil Russell Viper Venom Time M ND (CORRECTED); Lupus Anticoagulant PTT Screen 32 seconds (< OR = 40)
--- NOTE | 2018-05-02 16:03 | P.PNCA ---
Subjective Interval history: Denies CP, dyspnea, dizziness. Medications and Allergies Active Medications: Active Cardiac Medications Atorvastatin Calcium (Lipitor) 80 mg PO DAILY [facility] Last Admin: 05/02/18 08:02 Dose: 80 mg Heparin Sodium/Dextrose (Heparin/D5w 25,000 U/250 Ml) 25,000 unit in 250 mls @ 10 mls/hr IV.CONT TITRATE PRN; Protocol PRN Reason: Per Protocol Last Titration: 05/02/18 06:24 Dose: 1,300 units/hr, 13 mls/hr Warfarin Sodium (Coumadin) 5 mg PO DAILY@1600 [facility] Last Admin: 05/01/18 16:15 Dose: 5 mg Allergies Allergy/AdvReac Type Severity Reaction Status Date / Time No Known Allergies Allergy Verified 04/29/18 16:19 Home Medications Medication Instructions Recorded Confirmed Type amoxicillin 500 mg PO TID 04/29/18 05/02/18 History tadalafil 5 mg PO DAILY 04/29/18 05/02/18 History telmisartan-hydrochlorothiazid 1 tab PO DAILY 04/29/18 05/02/18 History testosterone enanthate See Label Instructions .ROUTE 04/29/18 05/02/18 History .COMPLEX Physical Exam Vital signs: Vital Signs 05/01/18 16:00 05/01/18 16:06 05/01/18 16:21 Temperature Pulse Rate 78 88 85 Respiratory Rate 21 25 H 23 Blood Pressure 175/111 H 184/107 H Pulse Oximetry 97 96 97 05/01/18 16:36 05/01/18 16:51 05/01/18 17:00 Temperature Pulse Rate 74 84 74 Respiratory Rate 25 H 25 H 28 H Blood Pressure 169/101 H 178/104 H Pulse Oximetry 97 96 96 05/01/18 17:06 05/01/18 17:21 05/01/18 17:36 Temperature Pulse Rate 80 87 88 Respiratory Rate 25 H 37 H 29 H Blood Pressure 184/107 H 184/109 H 202/108 H Pulse Oximetry 97 97 97 05/01/18 17:51 05/01/18 18:00 05/01/18 18:06 Temperature Pulse Rate 85 80 87 Respiratory Rate 22 28 H 24 Blood Pressure 197/108 H 201/109 H Pulse Oximetry 96 97 97 05/01/18 19:06 05/01/18 19:21 05/01/18 19:36 Temperature Pulse Rate 80 89 82 Respiratory Rate 18 18 18 Blood Pressure 193/107 H 180/108 H 182/95 H Pulse Oximetry 98 98 98 05/01/18 19:51 05/01/18 20:00 05/01/18 20:06 Temperature Pulse Rate 75 82 80 Respiratory Rate 17 17 20 Blood Pressure 174/92 H 182/99 H Pulse Oximetry 97 98 97 05/01/18 20:21 05/01/18 20:36 05/01/18 20:51 Temperature 98.6 F Pulse Rate 78 78 82 Respiratory Rate 20 16 16 Blood Pressure 173/99 H 170/99 H 175/104 H Pulse Oximetry 97 99 98 05/01/18 21:00 05/01/18 21:06 05/01/18 21:12 Temperature Pulse Rate 90 90 93 H Respiratory Rate 20 20 18 Blood Pressure 198/114 H 216/119 H Pulse Oximetry 98 99 98 05/01/18 21:21 05/01/18 21:25 05/01/18 21:36 Temperature Pulse Rate 76 80 Respiratory Rate 20 21 Blood Pressure 200/105 H 202/108 H Pulse Oximetry 98 95 98 05/01/18 21:51 05/01/18 21:56 05/01/18 22:00 Temperature Pulse Rate 70 84 84 Respiratory Rate 24 16 23 Blood Pressure 217/122 H Pulse Oximetry 99 99 99 05/01/18 22:05 05/01/18 22:06 05/01/18 22:21 Temperature Pulse Rate 66 72 87 Respiratory Rate 20 20 Blood Pressure 208/116 H 211/114 H Pulse Oximetry 99 99 05/01/18 22:36 05/01/18 22:51 05/01/18 23:00 Temperature Pulse Rate 98 H 87 84 Respiratory Rate 20 18 24 Blood Pressure 201/120 H 222/124 H Pulse Oximetry 99 98 99 05/01/18 23:06 05/01/18 23:21 05/01/18 23:36 Temperature Pulse Rate 71 67 70 Respiratory Rate 24 15 13 Blood Pressure 217/124 H 197/111 H 200/114 H Pulse Oximetry 98 98 98 05/01/18 23:51 05/02/18 00:00 05/02/18 00:06 Temperature Pulse Rate 73 71 73 Respiratory Rate 19 14 19 Blood Pressure 176/105 H 181/103 H Pulse Oximetry 98 98 98 05/02/18 00:21 05/02/18 00:36 05/02/18 00:51 Temperature Pulse Rate 66 63 63 Respiratory Rate 18 21 13 Blood Pressure 163/99 H 169/100 H 162/98 H Pulse Oximetry 97 97 97 05/02/18 01:00 05/02/18 01:06 05/02/18 01:21 Temperature Pulse Rate 60 60 57 L Respiratory Rate 17 14 18 Blood Pressure 174/103 H 175/110 H Pulse Oximetry 97 97 97 05/02/18 01:36 05/02/18 01:51 05/02/18 02:00 Temperature Pulse Rate 58 L 56 L 66 Respiratory Rate 15 16 21 Blood Pressure 168/101 H 180/111 H Pulse Oximetry 98 97 98 05/02/18 02:06 05/02/18 02:21 05/02/18 02:36 Temperature Pulse Rate 55 L 55 L 54 L Respiratory Rate 24 21 21 Blood Pressure 195/105 H 196/109 H 198/115 H Pulse Oximetry 98 98 97 05/02/18 02:51 05/02/18 03:00 05/02/18 03:06 Temperature Pulse Rate 55 L 57 L 61 Respiratory Rate 21 20 24 Blood Pressure 181/112 H 189/101 H Pulse Oximetry 97 97 97 05/02/18 03:21 05/02/18 03:36 05/02/18 03:51 Temperature Pulse Rate 63 61 61 Respiratory Rate 20 23 12 Blood Pressure 159/86 H 177/99 H 173/97 H Pulse Oximetry 97 97 97 05/02/18 04:00 05/02/18 04:04 05/02/18 04:06 Temperature Pulse Rate 56 L 55 L 61 Respiratory Rate 20 20 Blood Pressure 171/101 H Pulse Oximetry 97 97 05/02/18 04:21 05/02/18 04:36 05/02/18 04:51 Temperature Pulse Rate 59 L 61 64 Respiratory Rate 21 20 21 Blood Pressure 183/105 H 177/101 H 166/100 H Pulse Oximetry 97 97 97 05/02/18 05:00 05/02/18 05:06 05/02/18 05:21 Temperature Pulse Rate 75 77 67 Respiratory Rate 23 21 19 Blood Pressure 202/114 H 181/101 H Pulse Oximetry 97 98 97 05/02/18 05:36 05/02/18 05:51 05/02/18 06:00 Temperature Pulse Rate 69 79 84 Respiratory Rate 20 16 21 Blood Pressure 168/99 H 182/103 H Pulse Oximetry 98 98 98 05/02/18 07:00 05/02/18 07:06 05/02/18 07:21 Temperature Pulse Rate 62 61 66 Respiratory Rate 19 18 23 Blood Pressure 175/110 H 189/102 H Pulse Oximetry 97 97 98 05/02/18 07:27 05/02/18 07:36 05/02/18 07:51 Temperature Pulse Rate 53 L 70 64 Respiratory Rate 19 22 Blood Pressure 199/107 H 200/107 H Pulse Oximetry 97 97 05/02/18 08:00 05/02/18 08:06 05/02/18 08:21 Temperature Pulse Rate 61 87 68 Respiratory Rate 19 32 H 14 Blood Pressure 181/105 H 183/110 H Pulse Oximetry 96 97 97 05/02/18 08:36 05/02/18 08:51 05/02/18 09:00 Temperature Pulse Rate 106 H 81 83 Respiratory Rate 23 15 17 Blood Pressure 213/121 H 196/98 H Pulse Oximetry 99 97 98 05/02/18 09:06 05/02/18 09:21 05/02/18 09:36 Temperature Pulse Rate 86 92 H 85 Respiratory Rate 21 32 H 18 Blood Pressure 185/110 H 180/108 H 172/105 H Pulse Oximetry 98 97 97 05/02/18 09:51 05/02/18 10:00 05/02/18 10:06 Temperature Pulse Rate 86 89 85 Respiratory Rate 22 17 21 Blood Pressure 184/111 H 180/109 H Pulse Oximetry 98 98 97 05/02/18 10:21 05/02/18 10:36 05/02/18 10:51 Temperature Pulse Rate 84 87 87 Respiratory Rate 20 15 16 Blood Pressure 179/107 H 191/108 H 172/100 H Pulse Oximetry 97 96 97 05/02/18 11:00 05/02/18 11:06 05/02/18 11:21 Temperature Pulse Rate 78 82 73 Respiratory Rate 13 20 11 L Blood Pressure 173/97 H 167/97 H Pulse Oximetry 97 97 96 05/02/18 11:36 05/02/18 11:50 05/02/18 11:51 Temperature Pulse Rate 79 79 79 Respiratory Rate 11 L 20 Blood Pressure 162/95 H 164/96 H Pulse Oximetry 96 95 05/02/18 12:00 05/02/18 12:06 05/02/18 12:21 Temperature Pulse Rate 73 73 72 Respiratory Rate 18 18 20 Blood Pressure 142/88 H 139/82 Pulse Oximetry 94 L 95 94 L 05/02/18 12:36 05/02/18 12:51 05/02/18 13:00 Temperature Pulse Rate 91 H 82 75 Respiratory Rate 24 17 19 Blood Pressure 182/103 H 159/95 H Pulse Oximetry 97 97 97 05/02/18 13:06 05/02/18 13:21 05/02/18 13:36 Temperature Pulse Rate 75 79 78 Respiratory Rate 16 20 21 Blood Pressure 162/102 H 160/100 H 171/100 H Pulse Oximetry 97 96 95 05/02/18 13:51 05/02/18 14:00 05/02/18 14:06 Temperature Pulse Rate 74 84 81 Respiratory Rate 20 18 18 Blood Pressure 159/99 H 179/109 H Pulse Oximetry 95 98 98 05/02/18 14:21 05/02/18 14:36 05/02/18 14:51 Temperature Pulse Rate 80 80 93 H Respiratory Rate 16 23 20 Blood Pressure 162/102 H 181/96 H 174/109 H Pulse Oximetry 98 97 96 05/02/18 15:00 05/02/18 15:06 Temperature Pulse Rate 95 H 90 Respiratory Rate 20 22 Blood Pressure 183/106 H Pulse Oximetry 98 98 Intake & Output 05/01/18 05/02/18 05/02/18 18:59 06:59 18:59 Intake Total 2250 / 2250 3690 / 3690 Output Total 1999 / 1999 Balance 2250 / 2250 1690 / 1690 Weight 82.4 kg Intake: IV 2250 / 2250 2250 / 2250 Heparin/D5W 25,000 U/250 mL 25, 250 / 250 250 / 250 000 unit In 250 ml @ As Directed 10 mls/hr IV.CONT TITRATE PRN Rx#:[id number] Neosynephrine Inj 40 MG In NS 1000 / 1000 1000 / 1000 Inj 496 ML @ 40 MCG/MIN 30 mls/ hr IV.CONT TITRATE PRN Rx#: [id number] NS Inj 1,000 ML @ 70 mls/hr IV. 1000 / 1000 1000 / 1000 CONT .[id number] MAIK Rx#: [id number] Oral 1440 / 1440 Output: Urine 1999 Other: # Voids 7 Date of Last Bowel Movement 04/29/18 04/29/18 04/29/18 # Bowel Movements 0 - Constitutional no acute distress - Routine Neck Exam Absent: JVD - Routine Respiratory Exam Present: CTA bilaterally - Routine Cardiovascular Exam Present: RRR, S1, S2. Absent: murmur, gallop - Routine Abdominal Exam Present: soft, normoactive bowel sounds. Absent: tenderness - Routine Extremities Exam Absent: cyanosis, clubbing, edema Results 05/02/18 05:08 05/02/18 05:08 Coagulation 04/30/18 05/01/18 05/01/18 Range/Units 19:33 02:44 08:39 PT 10.5 (9.8-11.6) sec APTT 39.0 H D 43.0 H 40.2 H (23.4-31.7) sec 05/02/18 Range/Units 05:08 PT 10.6 (9.8-11.6) sec APTT 40.4 H (23.4-31.7) sec CBC 05/01/18 05/02/18 Range/Units 02:44 05:08 WBC 10.8 12.1 H (4.0-11.0) th/mm3 RBC 4.68 4.83 (4.50-5.90) mil/mm3 Hgb 15.9 16.2 (13.0-17.0) gm/dL Hct 46.2 47.1 (39.0-51.0) % Plt Count 274 284 (150-450) th/mm3 Neut # (Auto) 6.1 7.4 (1.8-7.7) th/mm3 Lymph # (Auto) 3.5 3.2 (1.0-4.8) th/mm3 Pierce # (Auto) 1.0 H 1.3 H (0.0-0.9) th/mm3 Eos # (Auto) 0.1 0.1 (0.0-0.4) th/mm3 Baso # (Auto) 0.1 0.1 (0.0-0.2) th/mm3 Comprehensive Metabolic Panel 05/01/18 05/02/18 Range/Units 02:44 05:08 Sodium 140 141 (136-145) meq/L Potassium 4.0 3.6 (3.5-5.1) meq/L Chloride 107 107 (98-107) meq/L Carbon Dioxide 23.8 24.7 (21.0-32.0) meq/L BUN 7 7 (7-18) mg/dL Creatinine 0.82 0.87 (0.60-1.30) mg/dL Calcium 8.0 L 8.6 (8.5-10.1) mg/dL Intake and Output 05/02/18 05/02/18 05/02/18 06:59 14:59 22:59 Intake Total 2970 / 2970 Output Total 1000 / 1000 Balance 1969 / 1969 Intake: IV 2250 / 2250 Heparin/D5W 25,000 U/250 mL 25, 250 / 250 000 unit In 250 ml @ As Directed 10 mls/hr IV.CONT TITRATE PRN Rx#:[id number] Neosynephrine Inj 40 MG In NS 1000 / 1000 Inj 496 ML @ 40 MCG/MIN 30 mls/ hr IV.CONT TITRATE PRN Rx#: [id number] NS Inj 1,000 ML @ 70 mls/hr IV. 1000 / 1000 CONT .[id number] MAIK Rx#: [id number] Oral 720 / 720 Output: Urine 1000 / 1000 Other: Date of Last Bowel Movement 04/29/18 04/29/18 Weight 82.4 kg Assessment and Plan - Assessment (1) CVA (cerebrovascular accident) Code(s): I63.9 - Cerebral infarction, unspecified Status: Acute Plan: No cardiac source of embolism seen on CARY today. No intracardiac shunt by saline contrast study. LV function excellent. No atherosclerotic changes in the ascending aorta and aortic arch. Recommend 3 week monitor as an outpatient before considering a loop recorder; will have my office contact him upon discharge. (2) Bacteremia Code(s): R78.81 - Bacteremia Status: Acute Plan: No evidence for endocarditis on CARY today. - Plan Code Status: full code (1) CVA (cerebrovascular accident) Qualifiers: CVA mechanism: unspecified Qualified Code(s): I63.9 - Cerebral infarction, unspecified
--- NOTE | 2018-05-02 16:44 | P.PNCC ---
Subjective Subjective Remarks/Hospital Course: This is a 47-year-old male who is otherwise previously healthy with the exception of a diagnosis of low testosterone. He presented with new onset visual loss which resolved spontaneously. He presented to [place] emergency department. He was diagnosed with amaurosis fugax. While he was in the emergency department, he became acutely aphasic. Stroke alert was called. CT head was negative for acute bleed. 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 At that time symptoms initially resolved. Discussion between Dr. Villatoro and Dr. Hoyos with interventional radiology was that any attempt at endovascular intervention for the left ICA occlusion would likely shower emboli and because of far worse neurologic devastating injury and conservative management. He was started on heparin infusion. He was transferred to [facility] in [place]. CT perfusion demonstrates a significant mismatch between infarct and at risk brain tissue. On my evaluation, on arrival to the intensive care unit at [facility], the patient has persistent mild expressive aphasia. Receptive leg which is intact. He does complain of new right arm sensory loss. He has good bilateral strength. I again discussed the case with Dr. Villatoro and Dr. Hoyos, who both agree that conservative management is warranted. After discussion with Dr. Villatoro, goal blood pressure goals are 180-220 systolic. Review of systems for this patient is very difficult due to his aphasia, but limited review of systems is negative for chest pain, shortness of breath, fever, chills. 04/30: Systolic blood pressure 180s. Expressive aphasia persists but he appears to understand commands. Mismatched perfusion noted on study. Continue with permissive hypertension. 05/01: Tolerated one episode of moderately lower blood pressure around 120. Now back up in the 180s. Started on warfarin and INR this morning is neuro. Speech has improved steadily over the past 24 hours. Swallow evaluation then feeding as tolerated by exam. 05/02: Speech is clear today. No facial droop. Blood pressure 180s. CARY without evidence of embolic source. Anticoagulation continues. Tolerating getting up in the chair. Objective Vital Signs / I&O: Vital Signs 05/01/18 16:51 05/01/18 17:00 05/01/18 17:06 Temperature Pulse Rate 84 74 80 Respiratory Rate 25 H 28 H 25 H Blood Pressure 178/104 H 184/107 H Pulse Oximetry 96 96 97 05/01/18 17:21 05/01/18 17:36 05/01/18 17:51 Temperature Pulse Rate 87 88 85 Respiratory Rate 37 H 29 H 22 Blood Pressure 184/109 H 202/108 H 197/108 H Pulse Oximetry 97 97 96 05/01/18 18:00 05/01/18 18:06 05/01/18 19:06 Temperature Pulse Rate 80 87 80 Respiratory Rate 28 H 24 18 Blood Pressure 201/109 H 193/107 H Pulse Oximetry 97 97 98 05/01/18 19:21 05/01/18 19:36 05/01/18 19:51 Temperature Pulse Rate 89 82 75 Respiratory Rate 18 18 17 Blood Pressure 180/108 H 182/95 H 174/92 H Pulse Oximetry 98 98 97 05/01/18 20:00 05/01/18 20:06 05/01/18 20:21 Temperature Pulse Rate 82 80 78 Respiratory Rate 17 20 20 Blood Pressure 182/99 H 173/99 H Pulse Oximetry 98 97 97 05/01/18 20:36 05/01/18 20:51 05/01/18 21:00 Temperature 98.6 F Pulse Rate 78 82 90 Respiratory Rate 16 16 20 Blood Pressure 170/99 H 175/104 H Pulse Oximetry 99 98 98 05/01/18 21:06 05/01/18 21:12 05/01/18 21:21 Temperature Pulse Rate 90 93 H 76 Respiratory Rate 20 18 20 Blood Pressure 198/114 H 216/119 H 200/105 H Pulse Oximetry 99 98 98 05/01/18 21:25 05/01/18 21:36 05/01/18 21:51 Temperature Pulse Rate 80 70 Respiratory Rate 21 24 Blood Pressure 202/108 H Pulse Oximetry 95 98 99 05/01/18 21:56 05/01/18 22:00 05/01/18 22:05 Temperature Pulse Rate 84 84 66 Respiratory Rate 16 23 Blood Pressure 217/122 H Pulse Oximetry 99 99 05/01/18 22:06 05/01/18 22:21 05/01/18 22:36 Temperature Pulse Rate 72 87 98 H Respiratory Rate 20 20 20 Blood Pressure 208/116 H 211/114 H 201/120 H Pulse Oximetry 99 99 99 05/01/18 22:51 05/01/18 23:00 05/01/18 23:06 Temperature Pulse Rate 87 84 71 Respiratory Rate 18 24 24 Blood Pressure 222/124 H 217/124 H Pulse Oximetry 98 99 98 05/01/18 23:21 05/01/18 23:36 05/01/18 23:51 Temperature Pulse Rate 67 70 73 Respiratory Rate 15 13 19 Blood Pressure 197/111 H 200/114 H 176/105 H Pulse Oximetry 98 98 98 05/02/18 00:00 05/02/18 00:06 05/02/18 00:21 Temperature Pulse Rate 71 73 66 Respiratory Rate 14 19 18 Blood Pressure 181/103 H 163/99 H Pulse Oximetry 98 98 97 05/02/18 00:36 05/02/18 00:51 05/02/18 01:00 Temperature Pulse Rate 63 63 60 Respiratory Rate 21 13 17 Blood Pressure 169/100 H 162/98 H Pulse Oximetry 97 97 97 05/02/18 01:06 05/02/18 01:21 05/02/18 01:36 Temperature Pulse Rate 60 57 L 58 L Respiratory Rate 14 18 15 Blood Pressure 174/103 H 175/110 H 168/101 H Pulse Oximetry 97 97 98 05/02/18 01:51 05/02/18 02:00 05/02/18 02:06 Temperature Pulse Rate 56 L 66 55 L Respiratory Rate 16 21 24 Blood Pressure 180/111 H 195/105 H Pulse Oximetry 97 98 98 05/02/18 02:21 05/02/18 02:36 05/02/18 02:51 Temperature Pulse Rate 55 L 54 L 55 L Respiratory Rate 21 21 21 Blood Pressure 196/109 H 198/115 H 181/112 H Pulse Oximetry 98 97 97 05/02/18 03:00 05/02/18 03:06 05/02/18 03:21 Temperature Pulse Rate 57 L 61 63 Respiratory Rate 20 24 20 Blood Pressure 189/101 H 159/86 H Pulse Oximetry 97 97 97 05/02/18 03:36 05/02/18 03:51 05/02/18 04:00 Temperature Pulse Rate 61 61 56 L Respiratory Rate 23 12 20 Blood Pressure 177/99 H 173/97 H Pulse Oximetry 97 97 97 05/02/18 04:04 05/02/18 04:06 05/02/18 04:21 Temperature Pulse Rate 55 L 61 59 L Respiratory Rate 20 21 Blood Pressure 171/101 H 183/105 H Pulse Oximetry 97 97 05/02/18 04:36 05/02/18 04:51 05/02/18 05:00 Temperature Pulse Rate 61 64 75 Respiratory Rate 20 21 23 Blood Pressure 177/101 H 166/100 H Pulse Oximetry 97 97 97 05/02/18 05:06 05/02/18 05:21 05/02/18 05:36 Temperature Pulse Rate 77 67 69 Respiratory Rate 21 19 20 Blood Pressure 202/114 H 181/101 H 168/99 H Pulse Oximetry 98 97 98 05/02/18 05:51 05/02/18 06:00 05/02/18 07:00 Temperature Pulse Rate 79 84 62 Respiratory Rate 16 21 19 Blood Pressure 182/103 H Pulse Oximetry 98 98 97 05/02/18 07:06 05/02/18 07:21 05/02/18 07:27 Temperature Pulse Rate 61 66 53 L Respiratory Rate 18 23 Blood Pressure 175/110 H 189/102 H Pulse Oximetry 97 98 05/02/18 07:36 05/02/18 07:51 05/02/18 08:00 Temperature Pulse Rate 70 64 61 Respiratory Rate 19 22 19 Blood Pressure 199/107 H 200/107 H Pulse Oximetry 97 97 96 05/02/18 08:06 05/02/18 08:21 05/02/18 08:36 Temperature Pulse Rate 87 68 106 H Respiratory Rate 32 H 14 23 Blood Pressure 181/105 H 183/110 H 213/121 H Pulse Oximetry 97 97 99 05/02/18 08:51 05/02/18 09:00 05/02/18 09:06 Temperature Pulse Rate 81 83 86 Respiratory Rate 15 17 21 Blood Pressure 196/98 H 185/110 H Pulse Oximetry 97 98 98 05/02/18 09:21 05/02/18 09:36 05/02/18 09:51 Temperature Pulse Rate 92 H 85 86 Respiratory Rate 32 H 18 22 Blood Pressure 180/108 H 172/105 H 184/111 H Pulse Oximetry 97 97 98 05/02/18 10:00 05/02/18 10:06 05/02/18 10:21 Temperature Pulse Rate 89 85 84 Respiratory Rate 17 21 20 Blood Pressure 180/109 H 179/107 H Pulse Oximetry 98 97 97 05/02/18 10:36 05/02/18 10:51 05/02/18 11:00 Temperature Pulse Rate 87 87 78 Respiratory Rate 15 16 13 Blood Pressure 191/108 H 172/100 H Pulse Oximetry 96 97 97 05/02/18 11:06 05/02/18 11:21 05/02/18 11:36 Temperature Pulse Rate 82 73 79 Respiratory Rate 20 11 L 11 L Blood Pressure 173/97 H 167/97 H 162/95 H Pulse Oximetry 97 96 96 05/02/18 11:50 05/02/18 11:51 05/02/18 12:00 Temperature Pulse Rate 79 79 73 Respiratory Rate 20 18 Blood Pressure 164/96 H Pulse Oximetry 95 94 L 05/02/18 12:06 05/02/18 12:21 05/02/18 12:36 Temperature Pulse Rate 73 72 91 H Respiratory Rate 18 20 24 Blood Pressure 142/88 H 139/82 182/103 H Pulse Oximetry 95 94 L 97 05/02/18 12:51 05/02/18 13:00 05/02/18 13:06 Temperature Pulse Rate 82 75 75 Respiratory Rate 17 19 16 Blood Pressure 159/95 H 162/102 H Pulse Oximetry 97 97 97 05/02/18 13:21 05/02/18 13:36 05/02/18 13:51 Temperature Pulse Rate 79 78 74 Respiratory Rate 20 21 20 Blood Pressure 160/100 H 171/100 H 159/99 H Pulse Oximetry 96 95 95 05/02/18 14:00 05/02/18 14:06 05/02/18 14:21 Temperature Pulse Rate 84 81 80 Respiratory Rate 18 18 16 Blood Pressure 179/109 H 162/102 H Pulse Oximetry 98 98 98 05/02/18 14:36 05/02/18 14:51 05/02/18 15:00 Temperature Pulse Rate 80 93 H 95 H Respiratory Rate 23 20 20 Blood Pressure 181/96 H 174/109 H Pulse Oximetry 97 96 98 05/02/18 15:06 05/02/18 15:21 05/02/18 15:36 Temperature Pulse Rate 90 103 H 106 H Respiratory Rate 22 19 24 Blood Pressure 183/106 H 201/110 H 214/115 H Pulse Oximetry 98 100 100 05/02/18 15:51 05/02/18 16:00 05/02/18 16:06 Temperature Pulse Rate 94 H 76 80 Respiratory Rate 12 7 L 22 Blood Pressure 119/70 158/74 H Pulse Oximetry 85 L 97 100 05/02/18 16:15 05/02/18 16:27 Temperature Pulse Rate 93 H Respiratory Rate Blood Pressure 169/120 H Pulse Oximetry Intake & Output 05/01/18 05/02/18 05/02/18 18:59 06:59 18:59 Intake Total 2250 / 2250 3690 / 3690 1000 / 1000 Output Total 1999 Balance 2250 / 2250 1690 / 1690 1000 / 1000 Weight 82.4 kg Intake: IV 2250 / 2250 2250 / 2250 1000 / 1000 Heparin/D5W 25,000 U/250 mL 25, 250 / 250 250 / 250 000 unit In 250 ml @ As Directed 10 mls/hr IV.CONT TITRATE PRN Rx#:[id number] Neosynephrine Inj 40 MG In NS 1000 / 1000 1000 / 1000 Inj 496 ML @ 40 MCG/MIN 30 mls/ hr IV.CONT TITRATE PRN Rx#: [id number] NS Inj 1,000 ML @ 70 mls/hr IV. 1000 / 1000 1000 / 1000 1000 / 1000 CONT .[id number] MAIK Rx#: [id number] Oral 1440 / 1440 Output: Urine 1999 Other: # Voids 7 Date of Last Bowel Movement 04/29/18 04/29/18 04/29/18 # Bowel Movements 0 Result Diagrams: 05/02/18 05:08 05/02/18 05:08 Objective Remarks: Narrative: GENERAL: Middle-age male, lying in bed, calm HEENT: Atraumatic. Pupils 3 mm, equal, round, reactive, conjugate. Mucous membranes are moist NECK: Trachea is midline. Airway widely patent, no obstructive noises. CHEST: Equal chest rise. Room air. No accessory muscle use. No adventitious sounds. CARDIOVASCULAR: Normal rate, regular rhythm. Sinus by telemetry. Pressures 180s systolic. ABDOMEN: Soft, nontender, nondistended. No guarding. Bowel sounds active. MUSCULOSKELETAL: No peripheral edema. NEUROLOGICAL: RASS 1. GCS 15. Speech clear. Musculoskeletal power 5/5 in bilateral upper and lower extremities both proximal and distal muscle groups. Talkative. Assessment and Plan - Assessment and Plan Plan: Assessment: 47-year-old male with acute left ICA thrombosis and associated CVA. Maintain cerebral perfusion with goal systolic blood pressure 180 - 220 mmHg. Acute CVA Acute dysarthria Acute sensory deficit RUE Acute aphasia Acute Left ICA occlusion - anticoag work up initiated, heparin started - PT/OT/ST - heparin drip, convert to oral anticoagulant when approved by neurology service - Discontinue heparin when therapeutic INR Hypertensive Emergency - permissive hypertension, goal sbp 180 - 220 mmHg - phenylephrine to keep systolic blood pressure greater than 180 SSI SCDs Overall impression: Acute carotid occlusion left side with small ipsilateral infarct and larger zone of jeopardy according to the brain perfusion study. Tolerates getting up to chair without lightheadedness or speech difficulty.
--- NOTE | 2018-05-02 16:45 | ECHRPT ---
Indication: SEPSIS POSS ENDOCARDITIS CONCLUSIONS Normal transesophageal echo. No cardiac source of embolism, intracardiac shunt, or evidence for endocarditis is evident. BP: / HR: Rhythm: Technical Quality: Medications Complications Proc. Components FINDINGS LEFT VENTRICLE Normal left ventricular size and wall thickness. The left ventricular systolic function is normal wi th an estimated ejection fraction in the range of 60-65%. Normal wall motion. RIGHT VENTRICLE Normal right ventricular size and systolic function. LEFT ATRIUM The left atrial size is normal. RIGHT ATRIUM The right atrial size is normal. ATRIAL SEPTUM Normal atrial septal thickness without atrial level shunting color doppler interrogation and saline contrast study. AORTA The aortic root and proximal ascending aorta are normal in size on limited imaging. MITRAL VALVE Structurally normal mitral valve. Trace regurgitation. AORTIC VALVE Trileaflet aortic valve. No aortic valve stenosis or regurgitation. TRICUSPID VALVE Structurally normal tricuspid valve. Trace regurgitation. VESSELS The inferior vena cava is normal in size. PULMONARY VALVE The pulmonary valve is not well visualized. PERICADIUM No pericardial effusion. Abner Zhao MD (Electronically Signed) Final Date:02 May 2018 16:43
[2018-05-02] MEDS: Senna/Docusate Sodium 8.6/50 MG Tablet PO SCH (21:44)
--- NOTE | 2018-05-02 22:59 | MR ---
EXAM DATE: 05/02/2018 10:47 PM EST AGE/SEX: 47 years / Male INDICATIONS: CVA. CLINICAL DATA: This is the patient's subsequent encounter. Patient reports that signs and symptoms h ave been present for 4 - 6 days and indicates a pain score of 0/10. MEDICAL/SURGICAL HISTORY: Hypertension. . Tendon surgery. COMPARISON: [facility], MRA HEAD W/O CONTRAST, 05/02/2018. [facility], CT CEREBRAL PERF W CONTRAST W 3D, 2018. [facility], MR HEAD W & W/O CONTRAST, 04/29/2018. . TECHNIQUE: Multiplanar, multisequence examination of the brain was performed without contrast. FINDINGS: Cerebrum: There is increased signal on the FLAIR and diffusion weighted images at the medial left te mporal region extending into the external capsule region. There is also some patchy areas of increase d signal seen in the left anterior parietal white matter and at the posterior lateral superior left p arietal cortex. These all represent are thought to represent areas of acute infarction. No areas of h emorrhage are seen. The ventricles are normal for age. No evidence of midline shift, mass lesion, he morrhage or acute infarction. No extraaxial fluid collections are seen. The pituitary gland and sup rasellar cistern are normal in configuration. White Matter: No significant signal abnormalities are seen in the white matter. Posterior Fossa: The cerebellum and brainstem are intact. The 4th ventricle is midline. The cerebel lopontine angle is unremarkable. The cerebellar tonsils are normal in position. Extracranial: The visualized portions of the orbits are unremarkable. There is bilateral maxillary a nd ethmoid sinus disease. CONCLUSION: 1. There is acute infarction involving the left medial temporal lobe, left external capsule, left pa rietal white matter, and peripheral parietal cortex. 2. Bilateral maxillary and ethmoid sinus disease. Electronically signed by: Ruddy Ray MD Board Certified Radiologist 05/02/2018 10:57 PM EST
--- NOTE | 2018-05-02 23:01 | MR ---
EXAM DATE: 05/02/2018 10:57 PM EST AGE/SEX: 47 years / Male INDICATIONS: Stroke. CLINICAL DATA: This is the patient's initial encounter. Patient reports that signs and symptoms have been present for 4 - 6 days and indicates a pain score of 0/10. MEDICAL/SURGICAL HISTORY: Hypertension. . Tendon surgery. COMPARISON: [facility], CTA NECK W CONTRAST W 3D, 04/29/2018. . TECHNIQUE: 10 ml Gadavist (gadobutrol) contrast infused MRA (single exam dose) of the extracranial circulation was performed using a neurovascular coil. Postprocessing was performed, including rotati ng sub-volume maximum intensity projections of each carotid artery, rotating full-volume maximum inte nsity projections of both carotid arteries, sagittal and coronal sliding thin-slab reformations of ea ch carotid artery, and left oblique sliding thin-slab reformation through the aortic arch to include the origin of the arch branch vessels. FINDINGS: Aortic Arch : There is a three-vessel origin of the great vessels from the aorta. No evidence of o stial narrowing. Right Carotid : The common carotid artery is intact. The carotid bulb has a normal configuration wi thout ulceration or narrowing. The internal carotid artery lumen is smooth without stenosis. The ex ternal carotid artery is intact. Left Carotid : There is occlusion of the left proximal internal carotid artery. The left common mccollum tid and external carotid arteries are patent. Vertebrals : The vertebral arteries have a symmetric diameter. No stenotic lesions are seen. 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 Percent stenosis is calculated using the diameter of the stenotic region over the diameter of the nor mal distal internal carotid artery Electronically signed by: Ruddy Ray MD Board Certified Radiologist 05/02/2018 11:00 PM EST
--- NOTE | 2018-05-02 23:06 | MR ---
EXAM DATE: 05/02/2018 10:48 PM EST AGE/SEX: 47 years / Male INDICATIONS: CVA. CLINICAL DATA: This is the patient's subsequent encounter. Patient reports that signs and symptoms h ave been present for 3 days and indicates a pain score of 0/10. MEDICAL/SURGICAL HISTORY: Hypertension. . Hand surgery. COMPARISON: [facility] [place], MR HEAD W/O CONTRAST, 05/02/2018. . TECHNIQUE: 3D aevp-el-[id number] MRA was performed. Source images, multiplanar STS MIP, and 3D volum e MIP reconstructions were reviewed. FINDINGS: There is occlusion of the left internal carotid artery just beyond its origin. There is collateral fl ow filling the supraclinoid portion of the internal carotid artery on the left. The anterior and midd le cerebral arteries are patent bilaterally. The anterior and posterior communicating arteries are pa tent bilaterally. The basilar artery is formed from the 2 vertebral arteries. It primarily ends as th e left posterior cerebral artery. The right posterior cerebral artery primarily originates from the r ight internal carotid artery. This a normal variant. There appears to be slight less prominence of th e left middle cerebral artery distal vessels compared to the right side. CONCLUSION: Occlusion of the left internal carotid artery with filling of the anterior and middle cerebral arteri es on the left via collaterals. Electronically signed by: Ruddy Ray MD Board Certified Radiologist 05/02/2018 11:05 PM EST
[2018-05-02] MEDS ORDERED: Gadobutrol PF 10 MMOL/10 ML Vial (for RAD) IV.SIG ONE (23:08)
[2018-05-03] MEDS: Phenylephrine Inj 40 MG in Sodium Chlor 0.9% Inj 496 ML IV.CONT PRN (01:03)
[2018-05-03 04:43] LABS: Baso # (Auto) 0.1 th/mm3 (0.0-0.2); Baso % (Auto) 0.6 % (0.0-2.0); Eos # (Auto) 0.2 th/mm3 (0.0-0.4); Eos % (Auto) 1.7 % (0.0-4.0); Hematocrit 45.5 % (39.0-51.0); Hemoglobin 15.9 gm/dL (13.0-17.0); Lymph # (Auto) 1.9 th/mm3 (1.0-4.8); Lymph % (Auto) 20.8 % (9.0-44.0); Mean Corpuscular HGB Conc 34.8 % (32.0-36.0); Mean Corpuscular Hemoglobin 33.3 pg (27.0-34.0); Mean Corpuscular Volume 95.7 fL (80.0-100.0); Mean Platelet Volume 8.8 fL (7.0-11.0); Mono # (Auto) 0.9 th/mm3 (0.0-0.9); Mono % (Auto) 9.9 % (0.0-8.0); Neut # (Auto) 6.2 th/mm3 (1.8-7.7); Platelet Count 200 th/mm3 (150-450); Red Blood Count 4.76 mil/mm3 (4.50-5.90); Red Cell Distribution Width 12.8 % (11.6-17.2); White Blood Count 9.2 th/mm3 (4.0-11.0)
[2018-05-03 04:48] LABS: INR 1.1 Ratio; Prothrombin Time 11.1 sec (9.8-11.6)
[2018-05-03] MEDS: Sod Chloride 0.9% Inj 1,000 ML IV.CONT SCH ×2 (05:04→16:04)
[2018-05-03 05:12] LABS: Calcium 7.8 mg/dL (8.5-10.1); Carbon Dioxide 24.3 meq/L (21.0-32.0); Magnesium 1.9 mg/dL (1.5-2.5); Phosphorus 3.4 mg/dL (2.5-4.9); Potassium 3.4 meq/L (3.5-5.1)
[2018-05-03 05:33] LABS: Platelet Estimate Normal (Normal); Platelet Morphology Normal (Normal)
[2018-05-03] MEDS: Chlorhexidine Gluconate 2% 1 Pack (2 Cloths) TOPICAL SCH (05:42)
[2018-05-03] MEDS: Senna/Docusate Sodium 8.6/50 MG Tablet PO SCH ×2 (09:36→21:32)
[2018-05-03] MEDS: Famotidine 20 MG Tablet PO SCH ×2 (09:36→21:31)
[2018-05-03] MEDS: Heparin Drip 25,000 UNIT/250 ML BAG IV.CONT PRN (12:12)
--- NOTE | 2018-05-03 12:26 | P.PNID ---
Subjective Remarks: Patient is a 47-year-old male, brought into the hospital for evaluation of sudden loss of vision in the left eye and a sensation of seeing stars in that left eye. Patient apparently has had problem with his molars, and last April 26 he was having pain in the right lower molar area. He called his primary care doctor, and a prescription was called for him and he started taking amoxicillin 500 mg 3 times a day. He was set up with a dentist and he saw the dentist on the day of admission when he had the transient loss of vision in the left eye. In the dentist he was supposed to follow-up next week to have some work done on his teeth including tooth extraction in 1 of them. He has no prior history of dental infection in the past. It happened a second time in this time he went to the hospital for further evaluation and treatment. He was evaluated, and was found to have a thrombus on the left side. It was decided to give him heparin. He also had developed some mild expressive aphasia and weakness. His neurological symptoms have improved. There were 2 blood cultures done on admission and one blood culture is now growing gram- positive isadora in the aerobic bottle. Patient gave a history of flulike symptoms with body aches about a week prior to admission. He had about 2 days of fevers , and he just waited out, and his symptoms improved. Patient had a regular echocardiogram which did not show any evidence of vegetation. Patient is scheduled to get CARY on May 03. Infectious disease consultation has been requested to evaluate the patient with one positive blood culture on admission. Notes reviewed Afebrile Feels like he is almost close to baseline One BC withn Bacillus No other (+) BC CARY normal Antibiotics: none Lines: PIV Past Medical History: Hypertension Allergies/Adverse Reactions: Allergies No Known Allergies Allergy (Verified 04/29/18 16:19) Objective Vital Signs 05/02/18 12:06 05/02/18 12:21 05/02/18 12:36 Temperature Pulse Rate 73 72 91 H Respiratory Rate 18 20 24 Blood Pressure 142/88 H 139/82 182/103 H Pulse Oximetry 95 94 L 97 05/02/18 12:51 05/02/18 13:00 05/02/18 13:06 Temperature Pulse Rate 82 75 75 Respiratory Rate 17 19 16 Blood Pressure 159/95 H 162/102 H Pulse Oximetry 97 97 97 05/02/18 13:21 05/02/18 13:36 05/02/18 13:51 Temperature Pulse Rate 79 78 74 Respiratory Rate 20 21 20 Blood Pressure 160/100 H 171/100 H 159/99 H Pulse Oximetry 96 95 95 05/02/18 14:00 05/02/18 14:06 05/02/18 14:21 Temperature Pulse Rate 84 81 80 Respiratory Rate 18 18 16 Blood Pressure 179/109 H 162/102 H Pulse Oximetry 98 98 98 05/02/18 14:36 05/02/18 14:51 05/02/18 15:00 Temperature Pulse Rate 80 93 H 95 H Respiratory Rate 23 20 20 Blood Pressure 181/96 H 174/109 H Pulse Oximetry 97 96 98 05/02/18 15:06 05/02/18 15:21 05/02/18 15:36 Temperature Pulse Rate 90 103 H 106 H Respiratory Rate 22 19 24 Blood Pressure 183/106 H 201/110 H 214/115 H Pulse Oximetry 98 100 100 05/02/18 15:51 05/02/18 16:00 05/02/18 16:06 Temperature Pulse Rate 94 H 76 80 Respiratory Rate 12 7 L 22 Blood Pressure 119/70 158/74 H Pulse Oximetry 85 L 97 100 05/02/18 16:15 05/02/18 16:27 05/02/18 16:28 Temperature Pulse Rate 93 H 82 Respiratory Rate Blood Pressure 169/120 H Pulse Oximetry 05/02/18 16:36 05/02/18 16:51 05/02/18 17:00 Temperature Pulse Rate 80 75 78 Respiratory Rate Blood Pressure 193/116 H 181/106 H Pulse Oximetry 99 91 L 99 05/02/18 17:06 05/02/18 17:21 05/02/18 17:36 Temperature Pulse Rate 74 77 71 Respiratory Rate Blood Pressure 190/113 H 178/89 H 163/91 H Pulse Oximetry 98 98 97 05/02/18 17:51 05/02/18 18:00 05/02/18 19:51 Temperature Pulse Rate 83 83 90 Respiratory Rate Blood Pressure 206/106 H 170/98 H Pulse Oximetry 99 97 96 05/02/18 20:00 05/02/18 20:06 05/02/18 20:21 Temperature 98.1 F Pulse Rate 90 83 84 Respiratory Rate Blood Pressure 144/90 H 160/102 H Pulse Oximetry 98 97 97 05/02/18 20:36 05/02/18 20:51 05/02/18 20:52 Temperature Pulse Rate 84 90 86 Respiratory Rate Blood Pressure 184/96 H 198/103 H 192/105 H Pulse Oximetry 97 99 100 05/02/18 21:00 05/02/18 21:01 05/02/18 21:11 Temperature Pulse Rate 82 83 85 Respiratory Rate Blood Pressure 181/95 H 188/104 H Pulse Oximetry 97 97 98 05/02/18 21:21 05/02/18 21:31 05/02/18 21:41 Temperature Pulse Rate 88 86 85 Respiratory Rate Blood Pressure 197/106 H 199/109 H 184/101 H Pulse Oximetry 97 98 98 05/02/18 21:51 05/02/18 22:00 05/02/18 22:45 Temperature Pulse Rate 101 H 96 H 85 Respiratory Rate 19 21 21 Blood Pressure 208/116 H 154/90 H Pulse Oximetry 99 98 97 05/02/18 23:00 05/02/18 23:06 05/02/18 23:15 Temperature Pulse Rate 84 83 87 Respiratory Rate 21 23 27 H Blood Pressure 161/98 H 164/95 H Pulse Oximetry 97 97 97 05/02/18 23:30 05/02/18 23:45 05/03/18 00:00 Temperature 98.5 F Pulse Rate 85 80 76 Respiratory Rate 31 H 23 19 Blood Pressure 159/92 H 154/84 H 139/75 Pulse Oximetry 99 99 96 05/03/18 00:15 05/03/18 00:30 05/03/18 00:45 Temperature Pulse Rate 76 82 75 Respiratory Rate 19 27 H 22 Blood Pressure 137/78 136/82 133/76 Pulse Oximetry 95 96 95 05/03/18 01:00 05/03/18 01:03 05/03/18 01:15 Temperature Pulse Rate 75 71 71 Respiratory Rate 21 21 22 Blood Pressure 135/75 131/76 116/69 Pulse Oximetry 95 95 96 05/03/18 01:30 05/03/18 01:45 05/03/18 02:00 Temperature Pulse Rate 71 74 74 Respiratory Rate 23 22 22 Blood Pressure 115/71 125/69 120/67 Pulse Oximetry 96 95 96 05/03/18 02:15 05/03/18 02:30 05/03/18 02:45 Temperature Pulse Rate 76 80 78 Respiratory Rate 23 22 23 Blood Pressure 113/65 110/66 111/66 Pulse Oximetry 94 L 94 L 95 05/03/18 03:00 05/03/18 03:15 05/03/18 03:30 Temperature Pulse Rate 78 83 77 Respiratory Rate 21 21 20 Blood Pressure 112/67 112/66 116/65 Pulse Oximetry 96 95 95 05/03/18 03:45 05/03/18 04:00 05/03/18 04:15 Temperature 98.6 F Pulse Rate 83 81 86 Respiratory Rate 12 26 H 17 Blood Pressure 131/71 135/68 120/70 Pulse Oximetry 96 95 95 05/03/18 04:30 05/03/18 04:45 05/03/18 05:00 Temperature Pulse Rate 85 85 75 Respiratory Rate 19 26 H 20 Blood Pressure 136/85 126/82 133/82 Pulse Oximetry 97 96 96 05/03/18 05:15 05/03/18 05:30 05/03/18 05:45 Temperature Pulse Rate 80 75 80 Respiratory Rate 25 H 20 20 Blood Pressure 142/91 H 132/75 130/70 Pulse Oximetry 97 96 96 05/03/18 06:00 05/03/18 06:15 05/03/18 07:00 Temperature Pulse Rate 75 86 74 Respiratory Rate 21 23 19 Blood Pressure 115/65 162/104 H 147/97 H Pulse Oximetry 95 98 97 05/03/18 07:15 05/03/18 07:30 05/03/18 08:00 Temperature Pulse Rate 74 74 76 Respiratory Rate 21 33 H Blood Pressure 136/86 133/82 Pulse Oximetry 96 95 05/03/18 08:10 05/03/18 08:12 05/03/18 08:15 Temperature Pulse Rate 90 80 76 Respiratory Rate 12 13 Blood Pressure 168/93 H 168/97 H Pulse Oximetry 98 99 98 05/03/18 09:00 05/03/18 09:15 05/03/18 10:00 Temperature 98.7 F Pulse Rate 73 73 73 Respiratory Rate 14 25 H 20 Blood Pressure 154/79 H 170/94 H Pulse Oximetry 98 98 97 05/03/18 10:09 05/03/18 11:00 Temperature Pulse Rate 94 H 76 Respiratory Rate 24 22 Blood Pressure 169/102 H Pulse Oximetry 100 98 Intake & Output 0228/19 03/01/19 03/01/19 18:59 06:59 18:59 Intake Total 1250 / 1250 2460 / 2460 Output Total 2049 500 / 500 Balance -800 / -800 1959 Weight 84.3 kg Intake: IV 1250 / 1250 1500 / 1500 Heparin/D5W 25,000 U/250 mL 25, 250 / 250 000 unit In 250 ml @ As Directed 10 mls/hr IV.CONT TITRATE PRN Rx#:[id number] Neosynephrine Inj 40 MG In NS 500 / 500 Inj 496 ML @ 40 MCG/MIN 30 mls/ hr IV.CONT TITRATE PRN Rx#: [id number] NS Inj 1,000 ML @ 70 mls/hr IV. 1000 / 1000 1000 / 1000 CONT .[id number] MAIK Rx#: [id number] Oral 960 / 960 Output: Urine 2049 500 / 500 Other: Date of Last Bowel Movement 04/29/18 04/29/18 05/03/18 05/01/18 15:57 Blood - Peripheral Aerobic Blood Culture - Preliminary No growth in 2 days 05/01/18 15:57 Blood - Peripheral Anaerobic Blood Culture - Preliminary No growth in 2 days 05/01/18 15:57 Blood - Peripheral Aerobic Blood Culture - Preliminary No growth in 2 days 05/01/18 15:57 Blood - Peripheral Anaerobic Blood Culture - Preliminary No growth in 2 days 04/29/18 19:30 Blood - Peripheral Aerobic Blood Culture - Final Bacillus species not anthracis 04/29/18 19:30 Blood - Peripheral Anaerobic Blood Culture - Preliminary No growth in 4 days 04/29/18 19:30 Blood - Peripheral Aerobic Blood Culture - Preliminary No growth in 4 days 04/29/18 19:30 Blood - Peripheral Anaerobic Blood Culture - Preliminary No growth in 4 days Lab - Hematology Results 05/02/18 05/03/18 05:08 04:29 WBC 12.1 H 9.2 RBC 4.83 4.76 Hgb 16.2 15.9 Hct 47.1 45.5 MCV 97.4 95.7 MCH 33.5 33.3 MCHC 34.3 34.8 RDW 13.1 12.8 Plt Count 284 200 MPV 9.3 8.8 Prelim Diff (Auto) Slide review pending Neut % (Auto) 61.5 67.0 Lymph % (Auto) 26.3 20.8 Dewitt % (Auto) 10.8 H 9.9 H Eos % (Auto) 0.8 1.7 Baso % (Auto) 0.6 0.6 Neut # (Auto) 7.4 6.2 Lymph # (Auto) 3.2 1.9 Dewitt # (Auto) 1.3 H 0.9 Eos # (Auto) 0.1 0.2 Baso # (Auto) 0.1 0.1 WBC Differential . . Diff Scan Auto diff confirmed Differential Comment Auto diff final . Platelet Estimate Normal Platelet Morphology Normal Lab - Chemistry Results 04/29/18 05/02/18 05/03/18 19:30 05:08 04:29 Sodium 141 142 Potassium 3.6 3.4 L Chloride 107 109 H Carbon Dioxide 24.7 24.3 Anion Gap 9 9 BUN 7 8 Creatinine 0.87 0.93 Estimated GFR Greater than 89 86 L Random Glucose 91 115 H Calcium 8.6 7.8 L D Phosphorus 3.0 3.4 Magnesium 2.0 1.9 Homocysteine Cardiovas 11.6 H Imaging: ITS Impressions Neck CTA 04/29/18 00:00 CONCLUSION: 1. 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 2. The right carotid artery and both vertebral arteries are patent. Head CT 04/29/18 18:17 CONCLUSION: 1. No acute intracranial abnormalities. 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 Report was called by Dr. Cast to Dr. Villatoro at 6:[address] CAD 04/29/18 21:41 CONCLUSION: Physiological brain perfusion parameters with RAPID analysis as above. The decision for consideration of therapy is multi factorial and multi disciplinary relying on subjective and objective clinical data. This data is not construed or intended to be the sole determinant of treatment eligibility. Head MRI 05/02/18 00:00 CONCLUSION: 1. There is acute infarction involving the left medial temporal lobe, left external capsule, left parietal white matter, and peripheral parietal cortex. 2. Bilateral maxillary and ethmoid sinus disease. Head MRA 05/02/18 00:00 CONCLUSION: Occlusion of the left internal carotid artery with filling of the anterior and middle cerebral arteries on the left via collaterals. Neck MRA 05/02/18 00:00 CONCLUSION: Occlusion of the proximal left internal carotid artery. Percent stenosis is calculated using the diameter of the stenotic region over the diameter of the normal distal internal carotid artery Physical Exam: GENERAL: awake and alert, not in respiratory distress. SKIN: Warm and dry. No generalized rash, no ecchymoses and no evidence of embolic lesions. HEAD: Atraumatic. Normocephalic. No temporal wasting, or tenderness. EYES: Buhl conjunctiva. No petechia or hemorrhage. Pupils equal, round and reactive to light. Extraocular movements full and intact. No scleral icterus. No injection or drainage. EARS, NOSE AND THROAT: Nose without bleeding or purulent nasal discharge. No sinus tenderness. Mucous membranes pink and moist. No oral lesions noted. No exudate. No oral thrush. NECK: Trachea midline. Supple and not tender, no meningeal signs CARDIOVASCULAR: Regular rate and rhythm. No murmurs, rubs or gallops heard RESPIRATORY: Clear to auscultation. Breath sounds equal bilaterally. No rales , wheezing or rhonchi ABDOMEN: Soft, non-tender, nondistended. Bowel sounds present and normoactive. No guarding. No rebound. No organomegaly. EXTREMITIES: No clubbing, cyanosis, or edema.No joint effusion, has good ROM. No calf tenderness. Well perfused and warm. NEUROLOGICAL: Awake and alert. No facial asymmetry, speech is clear. Motor grossly within normal limits. No Babinski, no ankle clonus PSYCHIATRIC: Normal affect, calm and cooperative. LINE: No evidence of infection Assessment and Plan - Plan IMpression One (+) BC out of 2 with Bacillus, C/W contaminant - usually Strep the most common pathogen in dental infection Recent Hx tooth infection, usually oral anaerobes and Strep the culprit CVA Hypertension Recommendation No Abx needed at this time NO Rx needed for the (+) BC I will sign off Please reconsult if with any new ID issue or question
--- NOTE | 2018-05-03 12:58 | P.PNNEU ---
Subjective Active Medications: Active Medications Acetaminophen (Tylenol) 650 mg PO Q6H PRN PRN Reason: TEMPERATURE > 101 F Last Admin: 05/02/18 10:35 Dose: 650 mg Albuterol (Duoneb Neb (Prn)) 1 ampul NEB Q2HR NEB PRN PRN Reason: WHEEZING Atorvastatin Calcium (Lipitor) 80 mg PO DAILY [facility] Last Admin: 05/03/18 09:36 Dose: 80 mg Chlorhexidine Gluconate (Chlorhexidine 2% Cloth) 3 pack TOPICAL DAILY@0400 [facility] Stop: 05/05/18 03:59 Last Admin: 05/03/18 05:42 Dose: Not Given Chlorhexidine Gluconate (Chlorhexidine 2% Cloth) 3 pack TOPICAL DAILY@0400 PRN PRN Reason: Extra cloth needed Stop: 05/05/18 03:59 Dextrose (D50w Vial) 50 ml IV.PUSH UNSCH PRN PRN Reason: PER HYPOGLYCEMIA PROTOCOL Doxycycline Hyclate (Vibramycin) 100 mg PO DAILY [facility] Last Admin: 05/03/18 12:12 Dose: 100 mg Enalaprilat (Vasotec Inj) 1.25 mg IV.PUSH Q4H PRN PRN Reason: For SBP > 220 or DBP > 120 Last Admin: 05/02/18 21:45 Dose: 1.25 mg Famotidine (Pepcid) 20 mg PO BID [facility] Last Admin: 05/03/18 09:36 Dose: 20 mg Glucagon (Glucagon Inj) 1 mg OTHER UNSCH PRN PRN Reason: for Hypoglycemia Protocol Sodium Chloride (Ns Inj) 1,000 mls @ 70 mls/hr IV.CONT .[id number] [facility] Last Admin: 05/03/18 05:04 Dose: 70 mls/hr Heparin Sodium/Dextrose (Heparin/D5w 25,000 U/250 Ml) 25,000 unit in 250 mls @ 10 mls/hr IV.CONT TITRATE PRN; Protocol PRN Reason: Per Protocol Last Admin: 05/03/18 12:12 Dose: 1,400 units/hr, 14 mls/hr Potassium Chloride (Kcl 40 Meq Premix Inj) 40 meq in 100 mls @ 25 mls/hr IV.SIG Q2H PRN PRN Reason: For Potassium 2.8 - 3.2 mEq/L Potassium Chloride (Kcl 20 Meq Premix Inj) 20 meq in 100 mls @ 50 mls/hr IV.SIG Q2H PRN PRN Reason: For Potassium 3.3 - 3.5 mEq/L Last Infusion: 04/30/18 05:28 Dose: Infused Potassium Chloride (Kcl 40 Meq Premix Inj) 40 meq in 100 mls @ 25 mls/hr IV.SIG UNSCH PRN PRN Reason: For Potassium 3.3 - 3.5 mEq/L Sodium Phosphate 30 mmol/ (Sodium Chloride) 260 mls @ 42 mls/hr IV.SIG UNSCH PRN PRN Reason: For Phosphorus < 2.5 mg/dL Potassium Phosphate 30 mmol/ (Sodium Chloride) 260 mls @ 42 mls/hr IV.SIG UNSCH PRN PRN Reason: SEE LABEL COMMENTS Magnesium Sulfate 4 gm/ Sodium (Chloride) 100 mls @ 50 mls/hr IV.SIG UNSCH PRN PRN Reason: For Magnesium 0.9 - 1.1 mg/dL Potassium Chloride (Kcl 20 Meq Premix Inj) 20 meq in 100 mls @ 50 mls/hr IV.SIG Q2H PRN PRN Reason: For Potassium 2.8 - 3.2 mEq/L Magnesium Sulfate 2 gm/ Sodium (Chloride) 100 mls @ 50 mls/hr IV.SIG UNSCH PRN PRN Reason: For Magnesium 1.2 - 1.6 mg/dL Nicardipine HCl 25 mg/ Sodium (Chloride) 250 mls @ 50 mls/hr IV.CONT TITRATE PRN; Protocol PRN Reason: Per Protocol Phenylephrine HCl 40 mg/ (Sodium Chloride) 500 mls @ 30 mls/hr IV.CONT TITRATE PRN; Protocol PRN Reason: Per Protocol Last Titration: 05/03/18 06:41 Dose: 40 mcg/min, 30 mls/hr Magnesium Oxide (Mag-Ox) 800 mg PO UNSCH PRN PRN Reason: For Magnesium 1.2 - 1.6 mg/dL Ondansetron HCl (Zofran Inj) 4 mg IV.PUSH Q6H PRN PRN Reason: NAUSEA OR VOMITING Potassium Chloride (Kcl Liq) 40 meq PO UNSCH PRN PRN Reason: Potassium level 3.3-3.5 mEq/L Last Admin: 05/03/18 06:23 Dose: 40 meq Potassium Chloride (Kcl Liq) 40 meq PO UNSCH PRN PRN Reason: POTASSIUM LESS THAN 3.5 Potassium Phosphate (K-Phos Original) 2,000 mg PO Q4H PRN PRN Reason: Phosphorus Less Than 2.5 mg/dL Potassium Phosphate (K-Phos Original) 2,000 mg PO UNSCH PRN PRN Reason: SEE LABEL COMMENTS Senna/Docusate Sodium (Estella-Colace) 1 tab PO BID [facility] Last Admin: 05/03/18 09:36 Dose: Not Given Sodium Chloride (Ns Flush) 2 ml IV.FLUSH BID [facility] Last Admin: 05/03/18 09:36 Dose: 2 ml Sodium Chloride (Ns Flush) 2 ml IV.FLUSH PRN PRN PRN Reason: FLUSH AFTER USING IV ACCESS Terbutaline Sulfate (Brethine Inj) 1 mg SQ UNSCH PRN PRN Reason: For Extravasation Warfarin Sodium (Coumadin) 7.5 mg PO DAILY@1600 [facility] Allergies/Adverse Reactions: Allergies Allergy/AdvReac Type Severity Reaction Status Date / Time No Known Allergies Allergy Verified 04/29/18 16:19 Physical Exam Vital signs: Vital Signs 05/02/18 13:00 05/02/18 13:06 05/02/18 13:21 Temperature Pulse Rate 75 75 79 Respiratory Rate 19 16 20 Blood Pressure 162/102 H 160/100 H Pulse Oximetry 97 97 96 05/02/18 13:36 05/02/18 13:51 05/02/18 14:00 Temperature Pulse Rate 78 74 84 Respiratory Rate 21 20 18 Blood Pressure 171/100 H 159/99 H Pulse Oximetry 95 95 98 05/02/18 14:06 05/02/18 14:21 05/02/18 14:36 Temperature Pulse Rate 81 80 80 Respiratory Rate 18 16 23 Blood Pressure 179/109 H 162/102 H 181/96 H Pulse Oximetry 98 98 97 05/02/18 14:51 05/02/18 15:00 05/02/18 15:06 Temperature Pulse Rate 93 H 95 H 90 Respiratory Rate 20 20 22 Blood Pressure 174/109 H 183/106 H Pulse Oximetry 96 98 98 05/02/18 15:21 05/02/18 15:36 05/02/18 15:51 Temperature Pulse Rate 103 H 106 H 94 H Respiratory Rate 19 24 12 Blood Pressure 201/110 H 214/115 H 119/70 Pulse Oximetry 100 100 85 L 05/02/18 16:00 02/28/19 16:06 05/02/18 16:15 Temperature Pulse Rate 76 80 93 H Respiratory Rate 7 L 22 Blood Pressure 158/74 H Pulse Oximetry 97 100 05/02/18 16:27 05/02/18 16:28 05/02/18 16:36 Temperature Pulse Rate 82 80 Respiratory Rate Blood Pressure 169/120 H 193/116 H Pulse Oximetry 99 05/02/18 16:51 05/02/18 17:00 05/02/18 17:06 Temperature Pulse Rate 75 78 74 Respiratory Rate Blood Pressure 181/106 H 190/113 H Pulse Oximetry 91 L 99 98 05/02/18 17:21 05/02/18 17:36 05/02/18 17:51 Temperature Pulse Rate 77 71 83 Respiratory Rate Blood Pressure 178/89 H 163/91 H 206/106 H Pulse Oximetry 98 97 99 05/02/18 18:00 05/02/18 19:51 05/02/18 20:00 Temperature 98.1 F Pulse Rate 83 90 90 Respiratory Rate Blood Pressure 170/98 H Pulse Oximetry 97 96 98 05/02/18 20:06 05/02/18 20:21 05/02/18 20:36 Temperature Pulse Rate 83 84 84 Respiratory Rate Blood Pressure 144/90 H 160/102 H 184/96 H Pulse Oximetry 97 97 97 05/02/18 20:51 05/02/18 20:52 05/02/18 21:00 Temperature Pulse Rate 90 86 82 Respiratory Rate Blood Pressure 198/103 H 192/105 H Pulse Oximetry 99 100 97 05/02/18 21:01 05/02/18 21:11 05/02/18 21:21 Temperature Pulse Rate 83 85 88 Respiratory Rate Blood Pressure 181/95 H 188/104 H 197/106 H Pulse Oximetry 97 98 97 05/02/18 21:31 05/02/18 21:41 05/02/18 21:51 Temperature Pulse Rate 86 85 101 H Respiratory Rate 19 Blood Pressure 199/109 H 184/101 H 208/116 H Pulse Oximetry 98 98 99 05/02/18 22:00 05/02/18 22:45 05/02/18 23:00 Temperature Pulse Rate 96 H 85 84 Respiratory Rate 21 21 21 Blood Pressure 154/90 H Pulse Oximetry 98 97 97 05/02/18 23:06 05/02/18 23:15 05/02/18 23:30 Temperature Pulse Rate 83 87 85 Respiratory Rate 23 27 H 31 H Blood Pressure 161/98 H 164/95 H 159/92 H Pulse Oximetry 97 97 99 05/02/18 23:45 05/03/18 00:00 05/03/18 00:15 Temperature 98.5 F Pulse Rate 80 76 76 Respiratory Rate 23 19 19 Blood Pressure 154/84 H 139/75 137/78 Pulse Oximetry 99 96 95 05/03/18 00:30 05/03/18 00:45 05/03/18 01:00 Temperature Pulse Rate 82 75 75 Respiratory Rate 27 H 22 21 Blood Pressure 136/82 133/76 135/75 Pulse Oximetry 96 95 95 05/03/18 01:03 05/03/18 01:15 05/03/18 01:30 Temperature Pulse Rate 71 71 71 Respiratory Rate 21 22 23 Blood Pressure 131/76 116/69 115/71 Pulse Oximetry 95 96 96 05/03/18 01:45 05/03/18 02:00 05/03/18 02:15 Temperature Pulse Rate 74 74 76 Respiratory Rate 22 22 23 Blood Pressure 125/69 120/67 113/65 Pulse Oximetry 95 96 94 L 05/03/18 02:30 05/03/18 02:45 05/03/18 03:00 Temperature Pulse Rate 80 78 78 Respiratory Rate 22 23 21 Blood Pressure 110/66 111/66 112/67 Pulse Oximetry 94 L 95 96 05/03/18 03:15 05/03/18 03:30 05/03/18 03:45 Temperature Pulse Rate 83 77 83 Respiratory Rate 21 20 12 Blood Pressure 112/66 116/65 131/71 Pulse Oximetry 95 95 96 05/03/18 04:00 05/03/18 04:15 05/03/18 04:30 Temperature 98.6 F Pulse Rate 81 86 85 Respiratory Rate 26 H 17 19 Blood Pressure 135/68 120/70 136/85 Pulse Oximetry 95 95 97 05/03/18 04:45 05/03/18 05:00 05/03/18 05:15 Temperature Pulse Rate 85 75 80 Respiratory Rate 26 H 20 25 H Blood Pressure 126/82 133/82 142/91 H Pulse Oximetry 96 96 97 05/03/18 05:30 05/03/18 05:45 05/03/18 06:00 Temperature Pulse Rate 75 80 75 Respiratory Rate 20 20 21 Blood Pressure 132/75 130/70 115/65 Pulse Oximetry 96 96 95 05/03/18 06:15 05/03/18 07:00 05/03/18 07:15 Temperature Pulse Rate 86 74 74 Respiratory Rate 23 19 21 Blood Pressure 162/104 H 147/97 H 136/86 Pulse Oximetry 98 97 96 05/03/18 07:30 05/03/18 08:00 05/03/18 08:10 Temperature Pulse Rate 74 76 90 Respiratory Rate 33 H Blood Pressure 133/82 Pulse Oximetry 95 98 05/03/18 08:12 05/03/18 08:15 05/03/18 09:00 Temperature 98.7 F Pulse Rate 80 76 73 Respiratory Rate 12 13 14 Blood Pressure 168/93 H 168/97 H 154/79 H Pulse Oximetry 99 98 98 05/03/18 09:15 05/03/18 10:00 05/03/18 10:09 Temperature Pulse Rate 73 73 94 H Respiratory Rate 25 H 20 24 Blood Pressure 170/94 H 169/102 H Pulse Oximetry 98 97 100 05/03/18 11:00 05/03/18 12:00 Temperature Pulse Rate 76 76 Respiratory Rate 22 23 Blood Pressure Pulse Oximetry 98 97 Intake & Output 05/02/18 05/03/18 05/03/18 18:59 06:59 18:59 Intake Total 1250 / 1250 2460 / 2460 250 / 250 Output Total 2049 500 / 500 Balance -800 / -800 1959 / 1959 250 / 250 Weight 84.3 kg Intake: IV 1250 / 1250 1500 / 1500 250 / 250 Heparin/D5W 25,000 U/250 mL 25, 250 / 250 250 / 250 000 unit In 250 ml @ As Directed 10 mls/hr IV.CONT TITRATE PRN Rx#:[id number] Neosynephrine Inj 40 MG In NS 500 / 500 Inj 496 ML @ 40 MCG/MIN 30 mls/ hr IV.CONT TITRATE PRN Rx#: [id number] NS Inj 1,000 ML @ 70 mls/hr IV. 1000 / 1000 1000 / 1000 CONT .[id number] [facility] Rx#: [id number] Oral 960 / 960 Output: Urine 2049 500 / 500 Other: Date of Last Bowel Movement 04/29/18 04/29/18 05/03/18 Narrative: vff nl speech minimal r droop Objective Laboratory Results - last 24 hr 04/29/18 04/29/18 05/03/18 19:30 19:30 04:29 WBC RBC Hgb Hct MCV MCH MCHC RDW Plt Count MPV Prelim Diff (Auto) Neut % (Auto) Lymph % (Auto) [place] % (Auto) Eos % (Auto) Baso % (Auto) Neut # (Auto) Lymph # (Auto) [place] # (Auto) Eos # (Auto) Baso # (Auto) WBC Differential Diff Scan Differential Comment Platelet Estimate Platelet Morphology PT 11.1 INR 1.1 APTT Thrombin Time ND Lupus Anticoagulant LA PTT Screen 32 dRVVT Screen 35 LA dRVVT Confirm ND dRVVT Mix ND Hexagonal Phase Confirm ND Antithrombin III Activ 99 Factor VIII Activity 88 Sodium Potassium Chloride Carbon Dioxide Anion Gap BUN Creatinine Estimated GFR Random Glucose Calcium Phosphorus Magnesium Beta-2-GPI IgG Ab <9 Beta-2-GPI IgA Ab <9 Beta-2-GPI IgM Ab <9 Phosphatidylserine IgG Less than 10.0 Phosphatidylserine IgA Less than 20.0 Phosphatidylserine IgM Less than 25.0 05/03/18 05/03/18 05/03/18 04:29 04:29 04:29 WBC 9.2 RBC 4.76 Hgb 15.9 Hct 45.5 MCV 95.7 MCH 33.3 MCHC 34.8 RDW 12.8 Plt Count 200 MPV 8.8 Prelim Diff (Auto) Slide review pending Neut % (Auto) 67.0 Lymph % (Auto) 20.8 [place] % (Auto) 9.9 H Eos % (Auto) 1.7 Baso % (Auto) 0.6 Neut # (Auto) 6.2 Lymph # (Auto) 1.9 [place] # (Auto) 0.9 Eos # (Auto) 0.2 Baso # (Auto) 0.1 WBC Differential . Diff Scan Auto diff confirmed Differential Comment . Platelet Estimate Normal Platelet Morphology Normal PT INR APTT 39.1 H Thrombin Time Lupus Anticoagulant LA PTT Screen dRVVT Screen LA dRVVT Confirm dRVVT Mix Hexagonal Phase Confirm Antithrombin III Activ Factor VIII Activity Sodium 142 Potassium 3.4 L Chloride 109 H Carbon Dioxide 24.3 Anion Gap 9 BUN 8 Creatinine 0.93 Estimated GFR 86 L Random Glucose 115 H Calcium 7.8 L D Phosphorus 3.4 Magnesium 1.9 Beta-2-GPI IgG Ab Beta-2-GPI IgA Ab Beta-2-GPI IgM Ab Phosphatidylserine IgG Phosphatidylserine IgA Phosphatidylserine IgM Microbiology 05/01/18 15:57 Aerobic Blood Culture - Preliminary Blood - Peripheral No growth in 2 days Anaerobic Blood Culture - Preliminary No growth in 2 days 05/01/18 15:57 Aerobic Blood Culture - Preliminary Blood - Peripheral No growth in 2 days Anaerobic Blood Culture - Preliminary No growth in 2 days 04/29/18 19:30 Aerobic Blood Culture - Final Blood - Peripheral Bacillus species not anthracis Anaerobic Blood Culture - Preliminary No growth in 4 days 04/29/18 19:30 Aerobic Blood Culture - Preliminary Blood - Peripheral No growth in 4 days Anaerobic Blood Culture - Preliminary No growth in 4 days Review/Management - Review/Management Plan: imp he waxed and waned several times last pnm and at mri seemed to be talking nl [place] [employer] last pm some time later he seemed to worsen again and this am speech sign affected mri small area of cva left mca ct perfusion larger area at risk mra the left m2 clot seems to have cleared but after trifercation he is missing some mca branch flow on hep ivf keep bp up hob [place] i dw no hx neck trauma coumadin when taking po fu echo holter hypercoag may do sagar when stable hx tooth infection fu blood cx and echo cards 05/01/18 much better on hep and coumadin plan if sagar sunday and at least cardionet if not loop do not drop bp during sagar can run today 170-180/ as he ran briefly 118/ yest w/o problems i dw nurse hob up a little ok to eat hyper pend echo nl sr here so far 05/02/18 for sagar today as one blood cx pos so did not want to wait until am bp ok now to 160-180/ hob 50 degrees ok on hep inr 1.0 no greens really looks well plan is sagar today recheck mra/i prob get oob in am 05/03/18 ok oob ok bp 140-160/ i melani nurse mult small to mod left mca cva left ica still occluded left mca open a lot branches fairly well sagar nl digna cardionet/loop inc coumadin to 7.5 a day
--- NOTE | 2018-05-03 16:06 | P.PNIM ---
Subjective Interval history: Patient is somewhat anxious today, has a number of questions regarding the direction of his care. He is concerned that he may not be able to restart testosterone therapy. Physical Exam Vital signs: Vital Signs 05/02/18 16:00 05/02/18 16:06 05/02/18 16:15 Temperature Pulse Rate 76 80 93 H Respiratory Rate 7 L 22 Blood Pressure 158/74 H Pulse Oximetry 97 100 05/02/18 16:27 05/02/18 16:28 05/02/18 16:36 Temperature Pulse Rate 82 80 Respiratory Rate Blood Pressure 169/120 H 193/116 H Pulse Oximetry 99 05/02/18 16:51 05/02/18 17:00 05/02/18 17:06 Temperature Pulse Rate 75 78 74 Respiratory Rate Blood Pressure 181/106 H 190/113 H Pulse Oximetry 91 L 99 98 05/02/18 17:21 05/02/18 17:36 05/02/18 17:51 Temperature Pulse Rate 77 71 83 Respiratory Rate Blood Pressure 178/89 H 163/91 H 206/106 H Pulse Oximetry 98 97 99 05/02/18 18:00 05/02/18 19:51 05/02/18 20:00 Temperature 98.1 F Pulse Rate 83 90 90 Respiratory Rate Blood Pressure 170/98 H Pulse Oximetry 97 96 98 05/02/18 20:06 05/02/18 20:21 05/02/18 20:36 Temperature Pulse Rate 83 84 84 Respiratory Rate Blood Pressure 144/90 H 160/102 H 184/96 H Pulse Oximetry 97 97 97 05/02/18 20:51 05/02/18 20:52 05/02/18 21:00 Temperature Pulse Rate 90 86 82 Respiratory Rate Blood Pressure 198/103 H 192/105 H Pulse Oximetry 99 100 97 05/02/18 21:01 05/02/18 21:11 05/02/18 21:21 Temperature Pulse Rate 83 85 88 Respiratory Rate Blood Pressure 181/95 H 188/104 H 197/106 H Pulse Oximetry 97 98 97 05/02/18 21:31 05/02/18 21:41 05/02/18 21:51 Temperature Pulse Rate 86 85 101 H Respiratory Rate 19 Blood Pressure 199/109 H 184/101 H 208/116 H Pulse Oximetry 98 98 99 05/02/18 22:00 05/02/18 22:45 05/02/18 23:00 Temperature Pulse Rate 96 H 85 84 Respiratory Rate 21 21 21 Blood Pressure 154/90 H Pulse Oximetry 98 97 97 05/02/18 23:06 05/02/18 23:15 05/02/18 23:30 Temperature Pulse Rate 83 87 85 Respiratory Rate 23 27 H 31 H Blood Pressure 161/98 H 164/95 H 159/92 H Pulse Oximetry 97 97 99 05/02/18 23:45 05/03/18 00:00 05/03/18 00:15 Temperature 98.5 F Pulse Rate 80 76 76 Respiratory Rate 23 19 19 Blood Pressure 154/84 H 139/75 137/78 Pulse Oximetry 99 96 95 05/03/18 00:30 05/03/18 00:45 05/03/18 01:00 Temperature Pulse Rate 82 75 75 Respiratory Rate 27 H 22 21 Blood Pressure 136/82 133/76 135/75 Pulse Oximetry 96 95 95 05/03/18 01:03 05/03/18 01:15 05/03/18 01:30 Temperature Pulse Rate 71 71 71 Respiratory Rate 21 22 23 Blood Pressure 131/76 116/69 115/71 Pulse Oximetry 95 96 96 05/03/18 01:45 05/03/18 02:00 05/03/18 02:15 Temperature Pulse Rate 74 74 76 Respiratory Rate 22 22 23 Blood Pressure 125/69 120/67 113/65 Pulse Oximetry 95 96 94 L 05/03/18 02:30 05/03/18 02:45 05/03/18 03:00 Temperature Pulse Rate 80 78 78 Respiratory Rate 22 23 21 Blood Pressure 110/66 111/66 112/67 Pulse Oximetry 94 L 95 96 05/03/18 03:15 05/03/18 03:30 05/03/18 03:45 Temperature Pulse Rate 83 77 83 Respiratory Rate 21 20 12 Blood Pressure 112/66 116/65 131/71 Pulse Oximetry 95 95 96 05/03/18 04:00 05/03/18 04:15 05/03/18 04:30 Temperature 98.6 F Pulse Rate 81 86 85 Respiratory Rate 26 H 17 19 Blood Pressure 135/68 120/70 136/85 Pulse Oximetry 95 95 97 05/03/18 04:45 05/03/18 05:00 05/03/18 05:15 Temperature Pulse Rate 85 75 80 Respiratory Rate 26 H 20 25 H Blood Pressure 126/82 133/82 142/91 H Pulse Oximetry 96 96 97 05/03/18 05:30 05/03/18 05:45 05/03/18 06:00 Temperature Pulse Rate 75 80 75 Respiratory Rate 20 20 21 Blood Pressure 132/75 130/70 115/65 Pulse Oximetry 96 96 95 05/03/18 06:15 05/03/18 07:00 05/03/18 07:15 Temperature Pulse Rate 86 74 74 Respiratory Rate 23 19 21 Blood Pressure 162/104 H 147/97 H 136/86 Pulse Oximetry 98 97 96 05/03/18 07:30 05/03/18 08:00 05/03/18 08:10 Temperature Pulse Rate 74 76 90 Respiratory Rate 33 H Blood Pressure 133/82 Pulse Oximetry 95 98 05/03/18 08:12 05/03/18 08:15 05/03/18 09:00 Temperature 98.7 F Pulse Rate 80 76 73 Respiratory Rate 12 13 14 Blood Pressure 168/93 H 168/97 H 154/79 H Pulse Oximetry 99 98 98 05/03/18 09:15 05/03/18 10:00 05/03/18 10:09 Temperature Pulse Rate 73 73 94 H Respiratory Rate 25 H 20 24 Blood Pressure 170/94 H 169/102 H Pulse Oximetry 98 97 100 05/03/18 11:00 05/03/18 12:00 05/03/18 13:00 Temperature Pulse Rate 76 76 94 H Respiratory Rate 22 23 7 L Blood Pressure Pulse Oximetry 98 97 100 05/03/18 13:06 05/03/18 14:00 Temperature Pulse Rate 96 H 86 Respiratory Rate 16 18 Blood Pressure 188/111 H 164/84 H Pulse Oximetry 100 98 Intake & Output 05/02/18 05/03/18 05/03/18 18:59 06:59 18:59 Intake Total 1250 / 1250 2460 / 2460 250 / 250 Output Total 2049 / 2049 500 / 500 Balance -800 / -800 1959 / 1959 250 / 250 Weight 84.3 kg Intake: IV 1250 / 1250 1500 / 1500 250 / 250 Heparin/D5W 25,000 U/250 mL 25, 250 / 250 250 / 250 000 unit In 250 ml @ As Directed 10 mls/hr IV.CONT TITRATE PRN Rx#:[id number] Neosynephrine Inj 40 MG In NS 500 / 500 Inj 496 ML @ 40 MCG/MIN 30 mls/ hr IV.CONT TITRATE PRN Rx#: [id number] NS Inj 1,000 ML @ 70 mls/hr IV. 1000 / 1000 1000 / 1000 CONT .[id number] [facility] Rx#: [id number] Oral 960 / 960 Output: Urine 0 / 0 500 / 500 Other: Date of Last Bowel Movement 04/29/18 04/29/18 05/03/18 Narrative: GENERAL: NAD SKIN: Warm and dry. HEAD: Atraumatic. Normocephalic. EYES: Pupils equal and round. No scleral icterus. No injection or drainage. ENT: No nasal bleeding or discharge. Mucous membranes pink and moist. NECK: Trachea midline. No JVD. CARDIOVASCULAR: Regular rate and rhythm. RESPIRATORY: No accessory muscle use. Clear to auscultation. Breath sounds equal bilaterally. GASTROINTESTINAL: Abdomen soft, non-tender, nondistended. Hepatic and splenic margins not palpable. MUSCULOSKELETAL: Extremities without clubbing, cyanosis, or edema. No obvious deformities. NEUROLOGICAL: Awake and alert. No obvious cranial nerve deficits. Motor grossly within normal limits. Five out of 5 muscle strength in the arms and legs. Normal speech. PSYCHIATRIC: Appropriate mood and affect; insight and judgment normal. Results Labs CBC & Chem 7: 05/03/18 04:29 05/03/18 14:00 Labs: Microbiology 05/01/18 15:57 Blood - Peripheral Aerobic Blood Culture - Preliminary No growth in 2 days 05/01/18 15:57 Blood - Peripheral Anaerobic Blood Culture - Preliminary No growth in 2 days 05/01/18 15:57 Blood - Peripheral Aerobic Blood Culture - Preliminary No growth in 2 days 05/01/18 15:57 Blood - Peripheral Anaerobic Blood Culture - Preliminary No growth in 2 days 04/29/18 19:30 Blood - Peripheral Aerobic Blood Culture - Final Bacillus species not anthracis 04/29/18 19:30 Blood - Peripheral Anaerobic Blood Culture - Preliminary No growth in 4 days 04/29/18 19:30 Blood - Peripheral Aerobic Blood Culture - Preliminary No growth in 4 days 04/29/18 19:30 Blood - Peripheral Anaerobic Blood Culture - Preliminary No growth in 4 days Imaging Imaging: Impressions Head MRI 05/02/18 00:00 CONCLUSION: 1. There is acute infarction involving the left medial temporal lobe, left external capsule, left parietal white matter, and peripheral parietal cortex. 2. Bilateral maxillary and ethmoid sinus disease. Head MRA 05/02/18 00:00 CONCLUSION: Occlusion of the left internal carotid artery with filling of the anterior and middle cerebral arteries on the left via collaterals. Neck MRA 05/02/18 00:00 CONCLUSION: Occlusion of the proximal left internal carotid artery. 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 He presented with new onset right-sided visual loss and was diagnosed with amaurosis fugax. He became acutely aphasic in the ER and stroke alert was called. 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 He had some expressive aphasia for a few days, but now most of his symptoms are completely resolved. All of this occurred by patient support in the context of right tooth and gum infection, swelling, tenderness. He has a history of a cracked right upper molar tooth that has been present for more than 2 years. Amaurosis fugax with acute CVA Loss of vision on admission, followed by acute a aphasia that lasted a few days He feels like he is at his baseline today, vision has returned Imaging showed left internal carotid artery occlusion CARY shows no source of thrombosis Cardiology recommends loop recorder following post discharge follow-up Heparin has been started, patient is bridging to Coumadin currently Continue PT, OT, ST Appreciate neurology following Hypertension Allowing permissive hypertension, initial goal was 180-220, now reducing h/o right molar fracture, tooth infection Prior to admission he was treated with amoxicillin Consider amoxicillin reaction, area of right cheek swelling was excessive per patient's history We will start him on doxycycline suppressive dose due to chronic infection risk Follow-up outpatient with dentistry Progress Note: Quality VTE Deep Vein Thrombosis/Pulmonary Embolism Present on Admission: No _ (1) CVA (cerebrovascular accident) Qualifiers: CVA mechanism: unspecified Precerebral and cerebral artery: Laterality of affected vessel: Qualified Code(s): I63.9 - Cerebral infarction, unspecified
[2018-05-03 23:54] LABS: Activated Protein C Resistance 3.8 ratio (> OR = 2.1)
[2018-05-04] MEDS: Sod Chloride 0.9% Inj 1,000 ML IV.CONT SCH ×3 (00:25→15:52)
[2018-05-04] MEDS: Chlorhexidine Gluconate 2% 1 Pack (2 Cloths) TOPICAL SCH (05:02)
[2018-05-04 05:25] LABS: Baso % (Auto) 0.4 % (0.0-2.0); Eos # (Auto) 0.2 th/mm3 (0.0-0.4); Eos % (Auto) 2.3 % (0.0-4.0); Hematocrit 44.9 % (39.0-51.0); Hemoglobin 15.5 gm/dL (13.0-17.0); Lymph # (Auto) 2.3 th/mm3 (1.0-4.8); Lymph % (Auto) 32.4 % (9.0-44.0); Mean Corpuscular HGB Conc 34.5 % (32.0-36.0); Mean Corpuscular Hemoglobin 33.5 pg (27.0-34.0); Mono # (Auto) 0.8 th/mm3 (0.0-0.9); Mono % (Auto) 11.5 % (0.0-8.0); Neut # (Auto) 3.7 th/mm3 (1.8-7.7); Neut % (Auto) 53.4 % (16.0-70.0); Platelet Count 222 th/mm3 (150-450); Red Blood Count 4.64 mil/mm3 (4.50-5.90); Red Cell Distribution Width 13.1 % (11.6-17.2)
[2018-05-04] MEDS: Heparin Drip 25,000 UNIT/250 ML BAG IV.CONT PRN ×2 (05:28→22:39)
[2018-05-04 05:47] LABS: Calcium 8.4 mg/dL (8.5-10.1); Carbon Dioxide 24.2 meq/L (21.0-32.0); Magnesium 1.8 mg/dL (1.5-2.5); Potassium 3.8 meq/L (3.5-5.1)
[2018-05-04 05:48] LABS: Phosphorus 3.6 mg/dL (2.5-4.9)
[2018-05-04 06:05] LABS: Activated Partial Thrombo Time 60.2 sec (23.4-31.7); INR 1.3 Ratio
[2018-05-04] MEDS: Senna/Docusate Sodium 8.6/50 MG Tablet PO SCH ×3 (08:58→20:35)
[2018-05-04] MEDS: Famotidine 20 MG Tablet PO SCH ×2 (08:58→20:35)
--- NOTE | 2018-05-04 11:07 | P.PNNEU ---
Subjective Active Medications: Active Medications Acetaminophen (Tylenol) 650 mg PO Q6H PRN PRN Reason: TEMPERATURE > 101 F Last Admin: 05/02/18 10:35 Dose: 650 mg Albuterol (Duoneb Neb (Prn)) 1 ampul NEB Q2HR NEB PRN PRN Reason: WHEEZING Atorvastatin Calcium (Lipitor) 80 mg PO DAILY [facility] Last Admin: 05/04/18 08:58 Dose: 80 mg Chlorhexidine Gluconate (Chlorhexidine 2% Cloth) 3 pack TOPICAL DAILY@0400 [facility] Stop: 05/05/18 03:59 Last Admin: 05/04/18 05:02 Dose: 3 pack Chlorhexidine Gluconate (Chlorhexidine 2% Cloth) 3 pack TOPICAL DAILY@0400 PRN PRN Reason: Extra cloth needed Stop: 05/05/18 03:59 Dextrose (D50w Vial) 50 ml IV.PUSH UNSCH PRN PRN Reason: PER HYPOGLYCEMIA PROTOCOL Doxycycline Hyclate (Vibramycin) 100 mg PO DAILY [facility] Last Admin: 05/04/18 08:58 Dose: 100 mg Famotidine (Pepcid) 20 mg PO BID [facility] Last Admin: 05/04/18 08:58 Dose: 20 mg Glucagon (Glucagon Inj) 1 mg OTHER UNSCH PRN PRN Reason: for Hypoglycemia Protocol Sodium Chloride (Ns Inj) 1,000 mls @ 70 mls/hr IV.CONT .[id number] [facility] Last Admin: 05/04/18 00:25 Dose: Not Given Heparin Sodium/Dextrose (Heparin/D5w 25,000 U/250 Ml) 25,000 unit in 250 mls @ 10 mls/hr IV.CONT TITRATE PRN; Protocol PRN Reason: Per Protocol Last Titration: 05/04/18 06:30 Dose: 1,400 units/hr, 14 mls/hr Potassium Chloride (Kcl 40 Meq Premix Inj) 40 meq in 100 mls @ 25 mls/hr IV.SIG Q2H PRN PRN Reason: For Potassium 2.8 - 3.2 mEq/L Potassium Chloride (Kcl 20 Meq Premix Inj) 20 meq in 100 mls @ 50 mls/hr IV.SIG Q2H PRN PRN Reason: For Potassium 3.3 - 3.5 mEq/L Last Infusion: 04/30/18 05:28 Dose: Infused Potassium Chloride (Kcl 40 Meq Premix Inj) 40 meq in 100 mls @ 25 mls/hr IV.SIG UNSCH PRN PRN Reason: For Potassium 3.3 - 3.5 mEq/L Sodium Phosphate 30 mmol/ (Sodium Chloride) 260 mls @ 42 mls/hr IV.SIG UNSCH PRN PRN Reason: For Phosphorus < 2.5 mg/dL Potassium Phosphate 30 mmol/ (Sodium Chloride) 260 mls @ 42 mls/hr IV.SIG UNSCH PRN PRN Reason: SEE LABEL COMMENTS Magnesium Sulfate 4 gm/ Sodium (Chloride) 100 mls @ 50 mls/hr IV.SIG UNSCH PRN PRN Reason: For Magnesium 0.9 - 1.1 mg/dL Potassium Chloride (Kcl 20 Meq Premix Inj) 20 meq in 100 mls @ 50 mls/hr IV.SIG Q2H PRN PRN Reason: For Potassium 2.8 - 3.2 mEq/L Magnesium Sulfate 2 gm/ Sodium (Chloride) 100 mls @ 50 mls/hr IV.SIG UNSCH PRN PRN Reason: For Magnesium 1.2 - 1.6 mg/dL Magnesium Oxide (Mag-Ox) 800 mg PO UNSCH PRN PRN Reason: For Magnesium 1.2 - 1.6 mg/dL Midodrine (Proamatine) 5 mg PO TID@0700,1200,1700 [facility] Ondansetron HCl (Zofran Inj) 4 mg IV.PUSH Q6H PRN PRN Reason: NAUSEA OR VOMITING Potassium Chloride (Kcl Liq) 40 meq PO UNSCH PRN PRN Reason: Potassium level 3.3-3.5 mEq/L Last Admin: 05/03/18 06:23 Dose: 40 meq Potassium Chloride (Kcl Liq) 40 meq PO UNSCH PRN PRN Reason: POTASSIUM LESS THAN 3.5 Potassium Phosphate (K-Phos Original) 2,000 mg PO Q4H PRN PRN Reason: Phosphorus Less Than 2.5 mg/dL Potassium Phosphate (K-Phos Original) 2,000 mg PO UNSCH PRN PRN Reason: SEE LABEL COMMENTS Senna/Docusate Sodium (Estella-Colace) 1 tab PO BID [facility] Last Admin: 05/04/18 09:05 Dose: Not Given Sodium Chloride (Ns Flush) 2 ml IV.FLUSH BID [facility] Last Admin: 05/04/18 09:15 Dose: Not Given Sodium Chloride (Ns Flush) 2 ml IV.FLUSH PRN PRN PRN Reason: FLUSH AFTER USING IV ACCESS Terbutaline Sulfate (Brethine Inj) 1 mg SQ UNSCH PRN PRN Reason: For Extravasation Warfarin Sodium (Coumadin) 7.5 mg PO DAILY@1600 [facility] Last Admin: 05/03/18 16:03 Dose: 7.5 mg Allergies/Adverse Reactions: Allergies Allergy/AdvReac Type Severity Reaction Status Date / Time No Known Allergies Allergy Verified 04/29/18 16:19 Physical Exam Vital signs: Vital Signs 05/03/18 12:00 05/03/18 13:00 05/03/18 13:06 Temperature Pulse Rate 76 94 H 96 H Respiratory Rate 23 7 L 16 Blood Pressure 188/111 H Pulse Oximetry 97 100 100 05/03/18 14:00 05/03/18 15:00 05/03/18 16:00 Temperature 98.0 F Pulse Rate 86 77 79 Respiratory Rate 18 15 25 H Blood Pressure 164/84 H Pulse Oximetry 98 98 99 05/03/18 16:01 05/03/18 17:00 05/03/18 17:38 Temperature Pulse Rate 79 80 80 Respiratory Rate 18 14 Blood Pressure 171/101 H Pulse Oximetry 99 100 05/03/18 17:43 05/03/18 18:00 05/03/18 19:00 Temperature Pulse Rate 79 78 75 Respiratory Rate 25 H 20 23 Blood Pressure 196/96 H Pulse Oximetry 99 98 98 05/03/18 20:00 05/03/18 20:11 05/03/18 21:00 Temperature 98.1 F Pulse Rate 76 74 80 Respiratory Rate 29 H 13 21 Blood Pressure 183/112 H 205/111 H Pulse Oximetry 97 99 99 05/03/18 22:00 05/03/18 22:40 05/03/18 23:00 Temperature Pulse Rate 76 71 70 Respiratory Rate 20 20 20 Blood Pressure 201/97 H 151/87 H 154/81 H Pulse Oximetry 97 96 96 05/04/18 00:00 05/04/18 00:02 05/04/18 00:29 Temperature 98.1 F Pulse Rate 70 76 70 Respiratory Rate 19 21 Blood Pressure 131/78 Pulse Oximetry 93 L 94 L 05/04/18 01:00 05/04/18 01:02 05/04/18 02:00 Temperature Pulse Rate 72 71 74 Respiratory Rate 22 22 21 Blood Pressure 129/80 Pulse Oximetry 94 L 94 L 94 L 05/04/18 02:02 05/04/18 02:20 05/04/18 03:00 Temperature Pulse Rate 75 75 70 Respiratory Rate 21 19 Blood Pressure 128/74 Pulse Oximetry 94 L 94 L 05/04/18 03:02 05/04/18 03:30 05/04/18 03:45 Temperature Pulse Rate 70 70 68 Respiratory Rate 19 21 23 Blood Pressure 118/64 124/75 131/88 Pulse Oximetry 95 95 96 05/04/18 04:00 05/04/18 04:15 05/04/18 04:30 Temperature 97.9 F Pulse Rate 67 67 81 Respiratory Rate 24 26 H 25 H Blood Pressure 136/87 140/91 H 143/82 H Pulse Oximetry 96 97 98 05/04/18 04:45 05/04/18 05:16 05/04/18 05:23 Temperature Pulse Rate 73 77 71 Respiratory Rate 22 15 Blood Pressure 146/88 H 141/86 H Pulse Oximetry 97 05/04/18 05:30 05/04/18 05:45 05/04/18 06:00 Temperature Pulse Rate 74 73 64 Respiratory Rate 26 H 23 20 Blood Pressure 155/95 H 157/93 H 142/83 H Pulse Oximetry 98 98 96 05/04/18 06:15 05/04/18 06:30 05/04/18 07:00 Temperature Pulse Rate 66 64 63 Respiratory Rate 20 19 19 Blood Pressure 116/63 128/70 128/71 Pulse Oximetry 96 97 97 05/04/18 07:15 05/04/18 07:30 05/04/18 07:45 Temperature Pulse Rate 65 65 63 Respiratory Rate 21 22 21 Blood Pressure 123/71 122/74 128/82 Pulse Oximetry 96 96 97 05/04/18 08:00 05/04/18 08:15 05/04/18 08:30 Temperature 97.8 F Pulse Rate 62 63 62 Respiratory Rate 17 30 H 21 Blood Pressure 128/82 117/83 139/83 Pulse Oximetry 95 94 L 94 L 05/04/18 08:45 05/04/18 09:00 05/04/18 09:15 Temperature Pulse Rate 62 74 76 Respiratory Rate 21 16 27 H Blood Pressure 140/84 142/93 H 163/102 H Pulse Oximetry 94 L 98 97 05/04/18 09:30 05/04/18 09:45 Temperature Pulse Rate 72 85 Respiratory Rate 18 22 Blood Pressure 167/102 H 172/107 H Pulse Oximetry 98 99 Intake & Output 05/03/18 05/04/18 05/04/18 18:59 06:59 18:59 Intake Total 1969 / 1969 730 / 730 Output Total 1000 / 1000 600 / 600 Balance 970 / 970 130 / 130 Weight 83 kg Intake: IV 1250 / 1250 250 / 250 Heparin/D5W 25,000 U/250 mL 25, 250 / 250 250 / 250 000 unit In 250 ml @ As Directed 10 mls/hr IV.CONT TITRATE PRN Rx#:[id number] Neosynephrine Inj 40 MG In NS Inj 496 ML @ 40 MCG/MIN 30 mls/ hr IV.CONT TITRATE PRN Rx#: [id number] NS Inj 1,000 ML @ 70 mls/hr IV. 1000 / 1000 CONT .[id number] [facility] Rx#: [id number] Oral 720 / 720 480 / 480 Output: Urine 1000 / 1000 600 / 600 Other: # Voids 1 Date of Last Bowel Movement 05/03/18 05/03/18 Narrative: 155/ now off iv drip vff face minimal droop 5/5 no speech Objective Laboratory Results - last 24 hr 04/29/18 05/03/18 05/03/18 19:30 14:00 14:00 WBC RBC Hgb Hct MCV MCH MCHC RDW Plt Count MPV Neut % (Auto) Lymph % (Auto) [place] % (Auto) Eos % (Auto) Baso % (Auto) Neut # (Auto) Lymph # (Auto) [place] # (Auto) Eos # (Auto) Baso # (Auto) WBC Differential Differential Comment PT INR APTT 42.1 H APC Resistance 3.8 Sodium Potassium 3.9 Chloride Carbon Dioxide Anion Gap BUN Creatinine Estimated GFR Random Glucose Calcium Phosphorus Magnesium MTHFR Mutation Detect 05/03/18 05/04/18 05/04/18 21:07 04:44 04:44 WBC 7.0 RBC 4.64 Hgb 15.5 Hct 44.9 MCV 97.0 MCH 33.5 MCHC 34.5 RDW 13.1 Plt Count 222 MPV 9.0 Neut % (Auto) 53.4 Lymph % (Auto) 32.4 [place] % (Auto) 11.5 H Eos % (Auto) 2.3 Baso % (Auto) 0.4 Neut # (Auto) 3.7 Lymph # (Auto) 2.3 [place] # (Auto) 0.8 Eos # (Auto) 0.2 Baso # (Auto) 0.0 WBC Differential . Differential Comment Auto diff final PT INR APTT 48.0 H APC Resistance Sodium 143 Potassium 3.8 Chloride 110 H Carbon Dioxide 24.2 Anion Gap 9 BUN 7 Creatinine 0.93 Estimated GFR 86 L Random Glucose 84 Calcium 8.4 L Phosphorus 3.6 Magnesium 1.8 MTHFR Mutation Detect 05/04/18 04:44 WBC RBC Hgb Hct MCV MCH MCHC RDW Plt Count MPV Neut % (Auto) Lymph % (Auto) [place] % (Auto) Eos % (Auto) Baso % (Auto) Neut # (Auto) Lymph # (Auto) [place] # (Auto) Eos # (Auto) Baso # (Auto) WBC Differential Differential Comment PT 13.0 H INR 1.3 APTT 60.2 H D APC Resistance Sodium Potassium Chloride Carbon Dioxide Anion Gap BUN Creatinine Estimated GFR Random Glucose Calcium Phosphorus Magnesium MTHFR Mutation Detect Microbiology 05/01/18 15:57 Aerobic Blood Culture - Preliminary Blood - Peripheral No growth in 3 days Anaerobic Blood Culture - Preliminary No growth in 3 days 05/01/18 15:57 Aerobic Blood Culture - Preliminary Blood - Peripheral No growth in 3 days Anaerobic Blood Culture - Preliminary No growth in 3 days 04/29/18 19:30 Aerobic Blood Culture - Final Blood - Peripheral Bacillus species not anthracis Anaerobic Blood Culture - Final No growth in 5 days 04/29/18 19:30 Aerobic Blood Culture - Final Blood - Peripheral No growth in 5 days Anaerobic Blood Culture - Final No growth in 5 days Review/Management - Review/Management Plan: imp he waxed and waned several times last pnm and at mri seemed to be talking nl i dw tech last pm some time later he seemed to worsen again and this am speech sign affected mri small area of cva left mca ct perfusion larger area at risk mra the left m2 clot seems to have cleared but after trifercation he is missing some mca branch flow on hep ivf keep bp up hob [place] i dw no hx neck trauma coumadin when taking po fu echo holter hypercoag may do sagar when stable hx tooth infection fu blood cx and echo cards 05/01/18 much better on hep and coumadin plan if sagar sunday and at least cardionet if not loop do not drop bp during sagar can run today 170-180/ as he ran briefly 118/ yest w/o problems i dw nurse hob up a little ok to eat hyper pend echo nl sr here so far 05/02/18 for sagar today as one blood cx pos so did not want to wait until am bp ok now to 160-180/ hob 50 degrees ok on hep inr 1.0 no greens really looks well plan is sagar today recheck mra/i prob get oob in am 05/03/18 ok oob ok bp 140-160/ i melani nurse mult small to mod left mca cva left ica still occluded left mca open a lot branches fairly well sagar nl digna cardionet/loop inc coumadin to 7.5 a day --------- 05/04/18 was on test and some over the counter things i rec dc this to him inr 1.3 ok to floor if bp ok off drip no need for midodrine now he has run low 118/ one time on own w/o sx
--- NOTE | 2018-05-04 14:55 | P.PNIM ---
Subjective Interval history: Patient has no specific complaints today, he reports no residual deficits from his recent CVA. Physical Exam Vital signs: Vital Signs 05/03/18 15:00 05/03/18 16:00 05/03/18 16:01 Temperature 98.0 F Pulse Rate 77 79 79 Respiratory Rate 15 25 H 18 Blood Pressure 171/101 H Pulse Oximetry 98 99 99 05/03/18 17:00 05/03/18 17:38 05/03/18 17:43 Temperature Pulse Rate 80 80 79 Respiratory Rate 14 25 H Blood Pressure 196/96 H Pulse Oximetry 100 99 05/03/18 18:00 05/03/18 19:00 05/03/18 20:00 Temperature 98.1 F Pulse Rate 78 75 76 Respiratory Rate 20 23 29 H Blood Pressure Pulse Oximetry 98 98 97 05/03/18 20:11 05/03/18 21:00 05/03/18 22:00 Temperature Pulse Rate 74 80 76 Respiratory Rate 13 21 20 Blood Pressure 183/112 H 205/111 H 201/97 H Pulse Oximetry 99 99 97 05/03/18 22:40 05/03/18 23:00 05/04/18 00:00 Temperature 98.1 F Pulse Rate 71 70 70 Respiratory Rate 20 20 19 Blood Pressure 151/87 H 154/81 H Pulse Oximetry 96 96 93 L 05/04/18 00:02 05/04/18 00:29 05/04/18 01:00 Temperature Pulse Rate 76 70 72 Respiratory Rate 21 22 Blood Pressure 131/78 Pulse Oximetry 94 L 94 L 05/04/18 01:02 05/04/18 02:00 05/04/18 02:02 Temperature Pulse Rate 71 74 75 Respiratory Rate 22 21 21 Blood Pressure 129/80 128/74 Pulse Oximetry 94 L 94 L 94 L 05/04/18 02:20 05/04/18 03:00 05/04/18 03:02 Temperature Pulse Rate 75 70 70 Respiratory Rate 19 19 Blood Pressure 118/64 Pulse Oximetry 94 L 95 05/04/18 03:30 05/04/18 03:45 05/04/18 04:00 Temperature 97.9 F Pulse Rate 70 68 67 Respiratory Rate 21 23 24 Blood Pressure 124/75 131/88 136/87 Pulse Oximetry 95 96 96 05/04/18 04:15 05/04/18 04:30 05/04/18 04:45 Temperature Pulse Rate 67 81 73 Respiratory Rate 26 H 25 H 22 Blood Pressure 140/91 H 143/82 H 146/88 H Pulse Oximetry 97 98 97 05/04/18 05:16 05/04/18 05:23 05/04/18 05:30 Temperature Pulse Rate 77 71 74 Respiratory Rate 15 26 H Blood Pressure 141/86 H 155/95 H Pulse Oximetry 98 05/04/18 05:45 05/04/18 06:00 05/04/18 06:15 Temperature Pulse Rate 73 64 66 Respiratory Rate 23 20 20 Blood Pressure 157/93 H 142/83 H 116/63 Pulse Oximetry 98 96 96 05/04/18 06:30 05/04/18 07:00 05/04/18 07:15 Temperature Pulse Rate 64 63 65 Respiratory Rate 19 19 21 Blood Pressure 128/70 128/71 123/71 Pulse Oximetry 97 97 96 05/04/18 07:30 05/04/18 07:45 05/04/18 08:00 Temperature 97.8 F Pulse Rate 65 63 62 Respiratory Rate 22 21 17 Blood Pressure 122/74 128/82 128/82 Pulse Oximetry 96 97 95 05/04/18 08:15 05/04/18 08:30 05/04/18 08:45 Temperature Pulse Rate 63 62 62 Respiratory Rate 30 H 21 21 Blood Pressure 117/83 139/83 140/84 Pulse Oximetry 94 L 94 L 94 L 05/04/18 09:00 05/04/18 09:15 05/04/18 09:30 Temperature Pulse Rate 74 76 72 Respiratory Rate 16 27 H 18 Blood Pressure 142/93 H 163/102 H 167/102 H Pulse Oximetry 98 97 98 05/04/18 09:45 Temperature Pulse Rate 85 Respiratory Rate 22 Blood Pressure 172/107 H Pulse Oximetry 99 Intake & Output 05/03/18 05/04/18 05/04/18 18:59 06:59 18:59 Intake Total 1969 / 1969 730 / 730 1016 / 1016 Output Total 1000 / 1000 600 / 600 Balance 970 / 970 130 / 130 1016 / 1016 Weight 83 kg Intake: IV 1250 / 1250 250 / 250 1016 / 1016 Heparin/D5W 25,000 U/250 mL 25, 250 / 250 250 / 250 000 unit In 250 ml @ As Directed 10 mls/hr IV.CONT TITRATE PRN Rx#:[id number] Neosynephrine Inj 40 MG In NS 16 / 16 Inj 496 ML @ 40 MCG/MIN 30 mls/ hr IV.CONT TITRATE PRN Rx#: [id number] NS Inj 1,000 ML @ 70 mls/hr IV. 1000 / 1000 1000 / 1000 CONT .[id number] [facility] Rx#: [id number] Oral 720 / 720 480 / 480 Output: Urine 1000 / 1000 600 / 600 Other: # Voids 1 Date of Last Bowel Movement 05/03/18 05/03/18 Narrative: GENERAL: NAD SKIN: Warm and dry. HEAD: Atraumatic. Normocephalic. EYES: Pupils equal and round. No scleral icterus. No injection or drainage. ENT: No nasal bleeding or discharge. Mucous membranes pink and moist. NECK: Trachea midline. No JVD. CARDIOVASCULAR: Regular rate and rhythm. RESPIRATORY: No accessory muscle use. Clear to auscultation. Breath sounds equal bilaterally. GASTROINTESTINAL: Abdomen soft, non-tender, nondistended. Hepatic and splenic margins not palpable. MUSCULOSKELETAL: Extremities without clubbing, cyanosis, or edema. No obvious deformities. NEUROLOGICAL: Awake and alert. No obvious cranial nerve deficits. Motor grossly within normal limits. Five out of 5 muscle strength in the arms and legs. Normal speech. PSYCHIATRIC: Appropriate mood and affect; insight and judgment normal. Results Labs CBC & Chem 7: 05/04/18 04:44 05/04/18 04:44 Labs: Microbiology 05/01/18 15:57 Blood - Peripheral Aerobic Blood Culture - Preliminary No growth in 3 days 05/01/18 15:57 Blood - Peripheral Anaerobic Blood Culture - Preliminary No growth in 3 days 05/01/18 15:57 Blood - Peripheral Aerobic Blood Culture - Preliminary No growth in 3 days 05/01/18 15:57 Blood - Peripheral Anaerobic Blood Culture - Preliminary No growth in 3 days 04/29/18 19:30 Blood - Peripheral Aerobic Blood Culture - Final Bacillus species not anthracis 04/29/18 19:30 Blood - Peripheral Anaerobic Blood Culture - Final No growth in 5 days 04/29/18 19:30 Blood - Peripheral Aerobic Blood Culture - Final No growth in 5 days 04/29/18 19:30 Blood - Peripheral Anaerobic Blood Culture - Final No growth in 5 days Assessment and Plan (1) CVA (cerebrovascular accident): Code(s): I63.9 - Cerebral infarction, unspecified Status: Acute (2) Bacteremia: Code(s): R78.81 - Bacteremia Status: Acute Plan 47-year-old male with 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 He presented with new onset right-sided visual loss and was diagnosed with amaurosis fugax. He became acutely aphasic in the ER and stroke alert was called. 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 He had some expressive aphasia for a few days, but now most of his symptoms are completely resolved. All of this occurred by patient support in the context of right tooth and gum infection, swelling, tenderness. He has a history of a cracked right upper molar tooth that has been present for more than 2 years. 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 CARY shows no source of thrombosis Patient states he is at his baseline, no noticeable deficits despite CVA Cardiology recommends loop recorder following post discharge follow-up Heparin has been started, patient is bridging to Coumadin currently Continue PT, OT, ST Appreciate neurology following Hypertension Allowing permissive hypertension, initial goal was 180-220, now reducing Plan for tapering off of Midrin on prior to discharge, will look to neurology for recommendation on timing h/o right molar fracture, tooth infection Prior to admission he was treated with amoxicillin Consider amoxicillin reaction, area of right cheek swelling was excessive per patient's history We will start him on doxycycline suppressive dose due to chronic infection risk Follow-up outpatient with dentistry DVT Prophylaxis Heparin, bridging to Coumadin Discharge planning Coumadin is currently subtherapeutic, titrating upward, aiming at discharge early next week Progress Note: Quality VTE Deep Vein Thrombosis/Pulmonary Embolism Present on Admission: No _ (1) CVA (cerebrovascular accident) Qualifiers: CVA mechanism: unspecified Precerebral and cerebral artery: Laterality of affected vessel: Qualified Code(s): I63.9 - Cerebral infarction, unspecified
[2018-05-05 05:12] LABS: Baso % (Auto) 0.5 % (0.0-2.0); Eos # (Auto) 0.2 th/mm3 (0.0-0.4); Eos % (Auto) 2.9 % (0.0-4.0); Hematocrit 45.2 % (39.0-51.0); Hemoglobin 15.7 gm/dL (13.0-17.0); Lymph # (Auto) 2.4 th/mm3 (1.0-4.8); Lymph % (Auto) 31.6 % (9.0-44.0); Mean Corpuscular HGB Conc 34.8 % (32.0-36.0); Mean Corpuscular Hemoglobin 33.9 pg (27.0-34.0); Mean Corpuscular Volume 97.3 fL (80.0-100.0); Mono # (Auto) 0.8 th/mm3 (0.0-0.9); Mono % (Auto) 11.3 % (0.0-8.0); Neut % (Auto) 53.7 % (16.0-70.0); Platelet Count 212 th/mm3 (150-450); Red Blood Count 4.64 mil/mm3 (4.50-5.90); White Blood Count 7.5 th/mm3 (4.0-11.0)
[2018-05-05 05:24] LABS: Activated Partial Thrombo Time 76.3 sec (23.4-31.7); INR 1.9 Ratio
[2018-05-05 05:33] LABS: Calcium 8.5 mg/dL (8.5-10.1); Carbon Dioxide 24.6 meq/L (21.0-32.0); Magnesium 1.9 mg/dL (1.5-2.5); Potassium 3.5 meq/L (3.5-5.1)
[2018-05-05 05:34] LABS: Phosphorus 3.9 mg/dL (2.5-4.9)
[2018-05-05] MEDS: Senna/Docusate Sodium 8.6/50 MG Tablet PO SCH ×2 (09:50→20:30)
[2018-05-05] MEDS: Famotidine 20 MG Tablet PO SCH ×2 (09:50→20:29)
--- NOTE | 2018-05-05 10:18 | P.PNNEU ---
Subjective Active Medications: Active Medications Acetaminophen (Tylenol) 650 mg PO Q6H PRN PRN Reason: TEMPERATURE > 101 F Last Admin: 05/02/18 10:35 Dose: 650 mg Albuterol (Duoneb Neb (Prn)) 1 ampul NEB Q2HR NEB PRN PRN Reason: WHEEZING Alprazolam (Xanax) 1 mg PO HS [facility] Last Admin: 05/04/18 20:35 Dose: 1 mg Atorvastatin Calcium (Lipitor) 80 mg PO DAILY [facility] Last Admin: 05/05/18 09:50 Dose: 80 mg Dextrose (D50w Vial) 50 ml IV.PUSH UNSCH PRN PRN Reason: PER HYPOGLYCEMIA PROTOCOL Doxycycline Hyclate (Vibramycin) 100 mg PO DAILY [facility] Last Admin: 05/05/18 09:50 Dose: 100 mg Famotidine (Pepcid) 20 mg PO BID [facility] Last Admin: 05/05/18 09:50 Dose: 20 mg Glucagon (Glucagon Inj) 1 mg OTHER UNSCH PRN PRN Reason: for Hypoglycemia Protocol Heparin Sodium/Dextrose (Heparin/D5w 25,000 U/250 Ml) 25,000 unit in 250 mls @ 10 mls/hr IV.CONT TITRATE PRN; Protocol PRN Reason: Per Protocol Last Titration: 05/05/18 06:40 Dose: 1,300 units/hr, 13 mls/hr Potassium Chloride (Kcl 40 Meq Premix Inj) 40 meq in 100 mls @ 25 mls/hr IV.SIG Q2H PRN PRN Reason: For Potassium 2.8 - 3.2 mEq/L Potassium Chloride (Kcl 20 Meq Premix Inj) 20 meq in 100 mls @ 50 mls/hr IV.SIG Q2H PRN PRN Reason: For Potassium 3.3 - 3.5 mEq/L Last Infusion: 04/30/18 05:28 Dose: Infused Potassium Chloride (Kcl 40 Meq Premix Inj) 40 meq in 100 mls @ 25 mls/hr IV.SIG UNSCH PRN PRN Reason: For Potassium 3.3 - 3.5 mEq/L Sodium Phosphate 30 mmol/ (Sodium Chloride) 260 mls @ 42 mls/hr IV.SIG UNSCH PRN PRN Reason: For Phosphorus < 2.5 mg/dL Potassium Phosphate 30 mmol/ (Sodium Chloride) 260 mls @ 42 mls/hr IV.SIG UNSCH PRN PRN Reason: SEE LABEL COMMENTS Magnesium Sulfate 4 gm/ Sodium (Chloride) 100 mls @ 50 mls/hr IV.SIG UNSCH PRN PRN Reason: For Magnesium 0.9 - 1.1 mg/dL Potassium Chloride (Kcl 20 Meq Premix Inj) 20 meq in 100 mls @ 50 mls/hr IV.SIG Q2H PRN PRN Reason: For Potassium 2.8 - 3.2 mEq/L Magnesium Sulfate 2 gm/ Sodium (Chloride) 100 mls @ 50 mls/hr IV.SIG UNSCH PRN PRN Reason: For Magnesium 1.2 - 1.6 mg/dL Magnesium Oxide (Mag-Ox) 800 mg PO UNSCH PRN PRN Reason: For Magnesium 1.2 - 1.6 mg/dL Ondansetron HCl (Zofran Inj) 4 mg IV.PUSH Q6H PRN PRN Reason: NAUSEA OR VOMITING Potassium Chloride (Kcl Liq) 40 meq PO UNSCH PRN PRN Reason: Potassium level 3.3-3.5 mEq/L Last Admin: 05/03/18 06:23 Dose: 40 meq Potassium Chloride (Kcl Liq) 40 meq PO UNSCH PRN PRN Reason: POTASSIUM LESS THAN 3.5 Potassium Phosphate (K-Phos Original) 2,000 mg PO Q4H PRN PRN Reason: Phosphorus Less Than 2.5 mg/dL Potassium Phosphate (K-Phos Original) 2,000 mg PO UNSCH PRN PRN Reason: SEE LABEL COMMENTS Senna/Docusate Sodium (Estella-Colace) 1 tab PO BID [facility] Last Admin: 05/05/18 09:50 Dose: Not Given Sodium Chloride (Ns Flush) 2 ml IV.FLUSH BID [facility] Last Admin: 05/05/18 09:49 Dose: 2 ml Sodium Chloride (Ns Flush) 2 ml IV.FLUSH PRN PRN PRN Reason: FLUSH AFTER USING IV ACCESS Terbutaline Sulfate (Brethine Inj) 1 mg SQ UNSCH PRN PRN Reason: For Extravasation Warfarin Sodium (Coumadin) 7.5 mg PO DAILY@1600 [facility] Last Admin: 05/04/18 16:29 Dose: 7.5 mg Allergies/Adverse Reactions: Allergies Allergy/AdvReac Type Severity Reaction Status Date / Time No Known Allergies Allergy Verified 04/29/18 16:19 Physical Exam Vital signs: Vital Signs 05/04/18 10:15 05/04/18 10:30 05/04/18 10:45 Temperature Pulse Rate 74 77 84 Respiratory Rate 22 23 18 Blood Pressure 151/87 H 154/87 H 150/86 H Pulse Oximetry 96 96 96 05/04/18 11:00 05/04/18 11:15 05/04/18 11:30 Temperature Pulse Rate 78 80 80 Respiratory Rate 18 28 H 15 Blood Pressure 143/87 H 147/83 H 155/92 H Pulse Oximetry 97 96 97 05/04/18 11:45 05/04/18 12:00 05/04/18 12:15 Temperature Pulse Rate 80 76 72 Respiratory Rate 23 21 24 Blood Pressure 153/96 H 147/105 H Pulse Oximetry 96 97 95 05/04/18 12:30 05/04/18 12:45 05/04/18 13:00 Temperature Pulse Rate 76 75 71 Respiratory Rate 23 24 20 Blood Pressure 137/78 Pulse Oximetry 95 94 L 94 L 05/04/18 13:15 05/04/18 13:30 05/04/18 13:45 Temperature Pulse Rate 70 68 77 Respiratory Rate 21 21 24 Blood Pressure Pulse Oximetry 93 L 93 L 97 05/04/18 14:00 05/04/18 14:15 05/04/18 14:30 Temperature Pulse Rate 82 78 81 Respiratory Rate 17 23 24 Blood Pressure 147/100 H Pulse Oximetry 97 97 97 05/04/18 14:45 05/04/18 15:11 05/04/18 15:15 Temperature Pulse Rate 82 89 83 Respiratory Rate 25 H 19 Blood Pressure 185/112 H Pulse Oximetry 99 05/04/18 15:30 05/04/18 15:45 05/04/18 16:00 Temperature 98.3 F Pulse Rate 80 76 81 Respiratory Rate 19 14 18 Blood Pressure 163/99 H Pulse Oximetry 98 98 98 05/04/18 16:05 05/04/18 17:00 05/04/18 18:00 Temperature Pulse Rate 80 76 93 H Respiratory Rate 30 H 27 H Blood Pressure 136/94 H 219/114 H Pulse Oximetry 98 99 05/04/18 18:44 05/04/18 19:00 05/04/18 19:45 Temperature Pulse Rate 78 83 78 Respiratory Rate 21 10 L 21 Blood Pressure 205/112 H 206/112 H 222/117 H Pulse Oximetry 99 100 99 05/04/18 20:00 05/04/18 21:00 05/04/18 22:00 Temperature 98.0 F Pulse Rate 77 78 81 Respiratory Rate 20 20 17 Blood Pressure 185/102 H 194/96 H 195/98 H Pulse Oximetry 98 98 98 05/04/18 23:00 05/05/18 00:00 05/05/18 01:00 Temperature 98.3 F Pulse Rate 76 69 65 Respiratory Rate 21 23 18 Blood Pressure 170/100 H 140/80 125/75 Pulse Oximetry 96 95 97 05/05/18 02:00 05/05/18 02:53 05/05/18 03:11 Temperature Pulse Rate 70 75 Respiratory Rate 18 24 Blood Pressure 139/73 150/89 H Pulse Oximetry 96 97 05/05/18 03:12 05/05/18 04:00 05/05/18 05:00 Temperature Pulse Rate 70 68 68 Respiratory Rate 19 19 21 Blood Pressure 122/77 119/74 Pulse Oximetry 98 95 94 L 05/05/18 06:00 05/05/18 07:00 05/05/18 08:00 Temperature 97.6 F Pulse Rate 65 69 67 Respiratory Rate 24 18 29 H Blood Pressure 119/69 115/68 116/63 Pulse Oximetry 94 L 95 95 05/05/18 09:00 05/05/18 10:00 Temperature Pulse Rate 66 77 Respiratory Rate 5 L 16 Blood Pressure 96/59 L 152/93 H Pulse Oximetry 95 97 Intake & Output 05/04/18 05/05/18 05/05/18 18:59 06:59 18:59 Intake Total 3016 / 3016 250 / 250 Output Total 2595 / 2595 912 / 912 Balance 421 / 421 -662 / -662 Weight 82.7 kg Intake: IV 1016 / 1016 250 / 250 Heparin/D5W 25,000 U/250 mL 25, 250 / 250 000 unit In 250 ml @ As Directed 10 mls/hr IV.CONT TITRATE PRN Rx#:[id number] Neosynephrine Inj 40 MG In NS Inj 496 ML @ 40 MCG/MIN 30 mls/ hr IV.CONT TITRATE PRN Rx#: [id number] NS Inj 1,000 ML @ 70 mls/hr IV. 1000 / 1000 CONT .[id number] MAIK Rx#: [id number] Oral 1999 Output: Urine 2595 / 2595 912 / 912 Other: # Voids 6 Date of Last Bowel Movement 05/04/18 05/05/18 # Bowel Movements 1 Narrative: vff face sym nl speech 07/07 Objective Laboratory Results - last 24 hr 05/05/18 05/05/18 05/05/18 04:41 04:41 04:41 WBC 7.5 RBC 4.64 Hgb 15.7 Hct 45.2 MCV 97.3 MCH 33.9 MCHC 34.8 RDW 13.0 Plt Count 212 MPV 9.0 Neut % (Auto) 53.7 Lymph % (Auto) 31.6 Meagher % (Auto) 11.3 H Eos % (Auto) 2.9 Baso % (Auto) 0.5 Neut # (Auto) 4.0 Lymph # (Auto) 2.4 Meagher # (Auto) 0.8 Eos # (Auto) 0.2 Baso # (Auto) 0.0 WBC Differential . Differential Comment Auto diff final PT 19.0 H INR 1.9 APTT 76.3 H D Sodium 142 Potassium 3.5 Chloride 107 Carbon Dioxide 24.6 Anion Gap 10 BUN 10 Creatinine 0.92 Estimated GFR 87 L Random Glucose 84 Calcium 8.5 Phosphorus 3.9 Magnesium 1.9 Microbiology 05/01/18 15:57 Aerobic Blood Culture - Preliminary Blood - Peripheral No growth in 3 days Anaerobic Blood Culture - Preliminary No growth in 3 days 05/01/18 15:57 Aerobic Blood Culture - Preliminary Blood - Peripheral No growth in 3 days Anaerobic Blood Culture - Preliminary No growth in 3 days 04/29/18 19:30 Aerobic Blood Culture - Final Blood - Peripheral Bacillus species not anthracis Anaerobic Blood Culture - Final No growth in 5 days 04/29/18 19:30 Aerobic Blood Culture - Final Blood - Peripheral No growth in 5 days Anaerobic Blood Culture - Final No growth in 5 days Review/Management - Review/Management Plan: imp he waxed and waned several times last pnm and at mri seemed to be talking nl i dw tech last pm some time later he seemed to worsen again and this am speech sign affected mri small area of cva left mca ct perfusion larger area at risk mra the left m2 clot seems to have cleared but after trifercation he is missing some mca branch flow on hep ivf keep bp up hob flat i dw no hx neck trauma coumadin when taking po fu echo holter hypercoag may do sagar when stable hx tooth infection fu blood cx and echo cards 05/01/18 much better on hep and coumadin plan if sagar sunday and at least cardionet if not loop do not drop bp during sagar can run today 170-180/ as he ran briefly 118/ yest w/o problems i dw nurse hob up a little ok to eat hyper pend echo nl sr here so far 05/02/18 for sagar today as one blood cx pos so did not want to wait until am bp ok now to 160-180/ hob 50 degrees ok on hep inr 1.0 no greens really looks well plan is sagar today recheck mra/i prob get oob in am 05/03/18 ok oob ok bp 140-160/ i melani nurse mult small to mod left mca cva left ica still occluded left mca open a lot branches fairly well sagar nl digna cardionet/loop inc coumadin to 7.5 a day --------- 05/04/18 was on test and some over the counter things i rec dc this to him inr 1.3 ok to floor if bp ok off drip no need for midodrine now he has run low 118/ one time on own w/o sx 05/05/18 sr bp low on own good po and urine o/p inr 1.9 might dc in am 2.5 cuomadin today got 10 yest stable neuro cardionet o/p
[2018-05-05] MEDS: Heparin Drip 25,000 UNIT/250 ML BAG IV.CONT PRN (15:20)
--- NOTE | 2018-05-05 16:26 | P.PNIM ---
Subjective Interval history: Patient has no new complaints, remains symptom-free from his previous CVA. We are awaiting his INR to be therapeutic, currently 1.9, possible discharge tomorrow after it exceeds 2.0. Physical Exam Vital signs: Vital Signs 05/04/18 17:00 05/04/18 18:00 05/04/18 18:44 Temperature Pulse Rate 76 93 H 78 Respiratory Rate 30 H 27 H 21 Blood Pressure 136/94 H 219/114 H 205/112 H Pulse Oximetry 98 99 99 05/04/18 19:00 05/04/18 19:45 05/04/18 20:00 Temperature 98.0 F Pulse Rate 83 78 77 Respiratory Rate 10 L 21 20 Blood Pressure 206/112 H 222/117 H 185/102 H Pulse Oximetry 100 99 98 05/04/18 21:00 05/04/18 22:00 05/04/18 23:00 Temperature Pulse Rate 78 81 76 Respiratory Rate 20 17 21 Blood Pressure 194/96 H 195/98 H 170/100 H Pulse Oximetry 98 98 96 05/05/18 00:00 05/05/18 01:00 05/05/18 02:00 Temperature 98.3 F Pulse Rate 69 65 70 Respiratory Rate 23 18 18 Blood Pressure 140/80 125/75 139/73 Pulse Oximetry 95 97 96 05/05/18 02:53 05/05/18 03:11 05/05/18 03:12 Temperature Pulse Rate 75 70 Respiratory Rate 24 19 Blood Pressure 150/89 H Pulse Oximetry 97 98 05/05/18 04:00 05/05/18 05:00 05/05/18 06:00 Temperature Pulse Rate 68 68 65 Respiratory Rate 19 21 24 Blood Pressure 122/77 119/74 119/69 Pulse Oximetry 95 94 L 94 L 05/05/18 07:00 05/05/18 08:00 05/05/18 09:00 Temperature 97.6 F Pulse Rate 69 67 66 Respiratory Rate 18 29 H 5 L Blood Pressure 115/68 116/63 96/59 L Pulse Oximetry 95 95 95 05/05/18 10:00 05/05/18 11:00 05/05/18 12:00 Temperature 98.1 F Pulse Rate 77 75 73 Respiratory Rate 16 26 H 26 H Blood Pressure 152/93 H 155/100 H 154/95 H Pulse Oximetry 97 98 98 Intake & Output 05/04/18 05/05/18 05/05/18 18:59 06:59 18:59 Intake Total 3016 / 3016 250 / 250 250 / 250 Output Total 2595 / 2595 912 / 912 Balance 421 / 421 -662 / -662 250 / 250 Weight 82.7 kg Intake: IV 1016 / 1016 250 / 250 250 / 250 Heparin/D5W 25,000 U/250 mL 25, 250 / 250 250 / 250 000 unit In 250 ml @ As Directed 10 mls/hr IV.CONT TITRATE PRN Rx#:[id number] Neosynephrine Inj 40 MG In NS Inj 496 ML @ 40 MCG/MIN 30 mls/ hr IV.CONT TITRATE PRN Rx#: [id number] NS Inj 1,000 ML @ 70 mls/hr IV. 1000 / 1000 CONT .[id number] MAIK Rx#: [id number] Oral 1999 Output: Urine 2595 / 2595 912 / 912 Other: # Voids 6 Date of Last Bowel Movement 05/04/18 05/05/18 05/05/18 # Bowel Movements 1 Narrative: GENERAL: NAD SKIN: Warm and dry. HEAD: Atraumatic. Normocephalic. EYES: Pupils equal and round. No scleral icterus. No injection or drainage. ENT: No nasal bleeding or discharge. Mucous membranes pink and moist. NECK: Trachea midline. No JVD. CARDIOVASCULAR: Regular rate and rhythm. RESPIRATORY: No accessory muscle use. Clear to auscultation. Breath sounds equal bilaterally. GASTROINTESTINAL: Abdomen soft, non-tender, nondistended. Hepatic and splenic margins not palpable. MUSCULOSKELETAL: Extremities without clubbing, cyanosis, or edema. No obvious deformities. NEUROLOGICAL: Awake and alert. No obvious cranial nerve deficits. Motor grossly within normal limits. Five out of 5 muscle strength in the arms and legs. Normal speech. PSYCHIATRIC: Appropriate mood and affect; insight and judgment normal. Results Labs CBC & Chem 7: 05/05/18 04:41 05/05/18 04:41 Labs: Microbiology 05/01/18 15:57 Blood - Peripheral Aerobic Blood Culture - Preliminary No growth in 4 days 05/01/18 15:57 Blood - Peripheral Anaerobic Blood Culture - Preliminary No growth in 4 days 05/01/18 15:57 Blood - Peripheral Aerobic Blood Culture - Preliminary No growth in 4 days 05/01/18 15:57 Blood - Peripheral Anaerobic Blood Culture - Preliminary No growth in 4 days Assessment and Plan (1) CVA (cerebrovascular accident): Code(s): I63.9 - Cerebral infarction, unspecified Status: Acute (2) Bacteremia: Code(s): R78.81 - Bacteremia Status: Acute Plan 47-year-old male with 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 He presented with new onset right-sided visual loss and was diagnosed with amaurosis fugax. He became acutely aphasic in the ER and stroke alert was called. 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 He had some expressive aphasia for a few days, but now most of his symptoms are completely resolved. All of this occurred by patient support in the context of right tooth and gum infection, swelling, tenderness. He has a history of a cracked right upper molar tooth that has been present for more than 2 years. 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 CARY shows no source of thrombosis Patient states he is at his baseline, no noticeable deficits despite CVA Cardiology recommends loop recorder following post discharge follow-up Heparin has been started, patient is bridging to Coumadin currently Continue PT, OT, ST Appreciate neurology following Hypertension Allowing permissive hypertension, initial goal was 180-220, now reducing Plan for tapering off of Midrin on prior to discharge, will look to neurology for recommendation on timing h/o right molar fracture, tooth infection Prior to admission he was treated with amoxicillin Consider amoxicillin reaction, area of right cheek swelling was excessive per patient's history We will start him on doxycycline suppressive dose due to chronic infection risk Follow-up outpatient with dentistry Anxiety Controlled with Xanax. Gave patient Xanax prescription for home He has been unable to get dental work due to white coat syndrome, recommend Xanax at times like that DVT Prophylaxis Heparin, bridging to Coumadin Discharge planning INR is 1.9, likely discharge tomorrow Progress Note: Quality VTE Deep Vein Thrombosis/Pulmonary Embolism Present on Admission: No _ (1) CVA (cerebrovascular accident) Qualifiers: CVA mechanism: unspecified Precerebral and cerebral artery: Laterality of affected vessel: Qualified Code(s): I63.9 - Cerebral infarction, unspecified
[2018-05-06 04:31] LABS: Baso % (Auto) 0.6 % (0.0-2.0); Eos # (Auto) 0.2 th/mm3 (0.0-0.4); Eos % (Auto) 2.7 % (0.0-4.0); Hematocrit 45.2 % (39.0-51.0); Hemoglobin 15.6 gm/dL (13.0-17.0); Lymph # (Auto) 2.4 th/mm3 (1.0-4.8); Lymph % (Auto) 36.9 % (9.0-44.0); Mean Corpuscular HGB Conc 34.5 % (32.0-36.0); Mean Corpuscular Hemoglobin 33.1 pg (27.0-34.0); Mean Corpuscular Volume 95.8 fL (80.0-100.0); Mean Platelet Volume 9.4 fL (7.0-11.0); Mono # (Auto) 0.7 th/mm3 (0.0-0.9); Mono % (Auto) 11.5 % (0.0-8.0); Neut # (Auto) 3.1 th/mm3 (1.8-7.7); Neut % (Auto) 48.3 % (16.0-70.0); Platelet Count 220 th/mm3 (150-450); Red Blood Count 4.72 mil/mm3 (4.50-5.90); Red Cell Distribution Width 12.9 % (11.6-17.2); White Blood Count 6.4 th/mm3 (4.0-11.0)
[2018-05-06 04:37] LABS: Carbon Dioxide 27.7 meq/L (21.0-32.0); Magnesium 2.1 mg/dL (1.5-2.5); Phosphorus 4.6 mg/dL (2.5-4.9); Potassium 3.7 meq/L (3.5-5.1)
[2018-05-06 04:43] LABS: Activated Partial Thrombo Time 75.1 sec (23.4-31.7); Prothrombin Time 20.7 sec (9.8-11.6)
[2018-05-06 07:46] VITALS: BP 148/79; RESP 20; TEMP 97.6; O2SAT 98
--- NOTE | 2018-05-06 08:12 | P.PNNEU ---
Subjective Active Medications: Active Medications Acetaminophen (Tylenol) 650 mg PO Q6H PRN PRN Reason: TEMPERATURE > 101 F Last Admin: 05/02/18 10:35 Dose: 650 mg Albuterol (Duoneb Neb (Prn)) 1 ampul NEB Q2HR NEB PRN PRN Reason: WHEEZING Alprazolam (Xanax) 1 mg PO HS [facility] Last Admin: 05/05/18 20:29 Dose: 1 mg Atorvastatin Calcium (Lipitor) 80 mg PO DAILY [facility] Last Admin: 05/05/18 09:50 Dose: 80 mg Dextrose (D50w Vial) 50 ml IV.PUSH UNSCH PRN PRN Reason: PER HYPOGLYCEMIA PROTOCOL Doxycycline Hyclate (Vibramycin) 100 mg PO DAILY [facility] Last Admin: 05/05/18 09:50 Dose: 100 mg Famotidine (Pepcid) 20 mg PO BID [facility] Last Admin: 05/05/18 20:29 Dose: 20 mg Glucagon (Glucagon Inj) 1 mg OTHER UNSCH PRN PRN Reason: for Hypoglycemia Protocol Heparin Sodium/Dextrose (Heparin/D5w 25,000 U/250 Ml) 25,000 unit in 250 mls @ 10 mls/hr IV.CONT TITRATE PRN; Protocol PRN Reason: Per Protocol Last Titration: 05/06/18 03:40 Dose: 1,100 units/hr, 11 mls/hr Ondansetron HCl (Zofran Inj) 4 mg IV.PUSH Q6H PRN PRN Reason: NAUSEA OR VOMITING Senna/Docusate Sodium (Estella-Colace) 1 tab PO BID [facility] Last Admin: 05/05/18 20:30 Dose: Not Given Sodium Chloride (Ns Flush) 2 ml IV.FLUSH BID [facility] Last Admin: 05/05/18 21:15 Dose: 2 ml Sodium Chloride (Ns Flush) 2 ml IV.FLUSH PRN PRN PRN Reason: FLUSH AFTER USING IV ACCESS Terbutaline Sulfate (Brethine Inj) 1 mg SQ UNSCH PRN PRN Reason: For Extravasation Warfarin Sodium (Coumadin) 2.5 mg PO DAILY@1600 [facility] Last Admin: 05/05/18 16:17 Dose: 2.5 mg Allergies/Adverse Reactions: Allergies Allergy/AdvReac Type Severity Reaction Status Date / Time No Known Allergies Allergy Verified 04/29/18 16:19 Physical Exam Vital signs: Vital Signs 05/05/18 09:00 05/05/18 10:00 05/05/18 11:00 Temperature Pulse Rate 66 77 75 Respiratory Rate 5 L 16 26 H Blood Pressure 96/59 L 152/93 H 155/100 H Pulse Oximetry 95 97 98 05/05/18 12:00 05/05/18 14:00 05/05/18 20:15 Temperature 98.1 F 98.1 F 97.7 F Pulse Rate 73 90 96 H Respiratory Rate 26 H 18 18 Blood Pressure 154/95 H 177/104 H 219/113 H Pulse Oximetry 98 100 100 05/05/18 23:40 05/06/18 03:20 05/06/18 07:46 Temperature 97.6 F 97.7 F 97.6 F Pulse Rate 85 90 94 H Respiratory Rate 18 18 20 Blood Pressure 172/92 H 129/71 148/79 H Pulse Oximetry 100 100 98 Intake & Output 05/05/18 05/06/18 05/06/18 18:59 06:59 18:59 Intake Total 250 / 250 Balance 250 / 250 Weight 86.7 kg Intake: IV 250 / 250 Heparin/D5W 25,000 U/250 mL 25, 250 / 250 000 unit In 250 ml @ As Directed 10 mls/hr IV.CONT TITRATE PRN Rx#:[id number] Other: # Voids 3 Date of Last Bowel Movement 05/05/18 05/05/18 Narrative: nl exam Objective Laboratory Results - last 24 hr 04/29/18 05/05/18 05/05/18 19:30 14:21 21:26 WBC RBC Hgb Hct MCV MCH MCHC RDW Plt Count MPV Neut % (Auto) Lymph % (Auto) Graves % (Auto) Eos % (Auto) Baso % (Auto) Neut # (Auto) Lymph # (Auto) Graves # (Auto) Eos # (Auto) Baso # (Auto) WBC Differential Differential Comment PT INR APTT 65.4 H 72.4 H Sodium Potassium Chloride Carbon Dioxide Anion Gap BUN Creatinine Estimated GFR Random Glucose Calcium Phosphorus Magnesium Prothrombin [id number] Mut 05/06/18 05/06/18 05/06/18 03:37 03:37 03:37 WBC 6.4 RBC 4.72 Hgb 15.6 Hct 45.2 MCV 95.8 MCH 33.1 MCHC 34.5 RDW 12.9 Plt Count 220 MPV 9.4 Neut % (Auto) 48.3 Lymph % (Auto) 36.9 Graves % (Auto) 11.5 H Eos % (Auto) 2.7 Baso % (Auto) 0.6 Neut # (Auto) 3.1 Lymph # (Auto) 2.4 Graves # (Auto) 0.7 Eos # (Auto) 0.2 Baso # (Auto) 0.0 WBC Differential . Differential Comment Auto diff final PT 20.7 H INR 2.0 APTT 75.1 H Sodium 141 Potassium 3.7 Chloride 106 Carbon Dioxide 27.7 Anion Gap 7 BUN 9 Creatinine 1.00 Estimated GFR 79 L Random Glucose 85 Calcium 9.0 Phosphorus 4.6 Magnesium 2.1 Prothrombin [id number] Mut Microbiology 05/01/18 15:57 Aerobic Blood Culture - Preliminary Blood - Peripheral No growth in 4 days Anaerobic Blood Culture - Preliminary No growth in 4 days 05/01/18 15:57 Aerobic Blood Culture - Preliminary Blood - Peripheral No growth in 4 days Anaerobic Blood Culture - Preliminary No growth in 4 days Review/Management - Review/Management Plan: imp he waxed and waned several times last pnm and at mri seemed to be talking nl i melani tech last pm some time later he seemed to worsen again and this am speech sign affected mri small area of cva left mca ct perfusion larger area at risk mra the left m2 clot seems to have cleared but after trifercation he is missing some mca branch flow on hep ivf keep bp up [place] i dw no hx neck trauma coumadin when taking po fu echo holter hypercoag may do sagar when stable hx tooth infection fu blood cx and echo cards 05/01/18 much better on hep and coumadin plan if sagar sunday and at least cardionet if not loop do not drop bp during sagar can run today 170-180/ as he ran briefly 118/ yest w/o problems i dw nurse hob up a little ok to eat hyper pend echo nl sr here so far 05/02/18 for sagar today as one blood cx pos so did not want to wait until am bp ok now to 160-180/ hob 50 degrees ok on hep inr 1.0 no greens really looks well plan is sagar today recheck mra/i prob get oob in am 05/03/18 ok oob ok bp 140-160/ i dw nurse ronny small to mod left mca cva left ica still occluded left mca open a lot branches fairly well sagar nl digna cardionet/loop inc coumadin to 7.5 a day --------- 05/04/18 was on test and some over the counter things i rec dc this to him inr 1.3 ok to floor if bp ok off drip no need for midodrine now he has run low 118/ one time on own w/o sx 05/05/18 sr bp low on own good po and urine o/p inr 1.9 might dc in am 2.5 cuomadin today got 10 yest stable neuro cardionet o/p 05/06/18 doing well inr 2.0 plz give him script for 3mg coumadin pills and have him take 3 mg a day and check inr in am and call my office today after dc give him stat inr script two of them and call to my office [phone] sandy brown for o/p cardionet this week also
[2018-05-06] MEDS: Famotidine 20 MG Tablet PO SCH (09:06)
[2018-05-06] MEDS: Senna/Docusate Sodium 8.6/50 MG Tablet PO SCH (09:07)
[2018-05-06 10:06] VITALS: PULSE 74
--- NOTE | 2018-05-06 11:18 | P.DS ---
DS: Providers Date of admission: 04/29/18 17:28 Primary care physician: UNKNOWN Consults: 04/29/18 17:40 Consult to Neurology Routine Consulting Provider: Bob Anna Reason for Consultation: Ischemic Stroke Notified:: Service Spoke with:: Autumn Date Notified:: 04/29/18 Time Notified:: 18:11 Ordering Provider: MIGNON 04/30/18 08:14 Consult to Cardiology Routine Consulting Provider: Abner Zhao Does the patient have a Coil Repair Technician who follows them?: No Preferred Hairmasters Manager:: Aids Social Worker Physician Reason for Consultation: sagar in few days tooth infxt cva ? endocarditis? Notified:: Service Spoke with:: DMITRY Date Notified:: 04/30/18 Time Notified:: 08:34 Ordering Provider: SEFERINO 05/01/18 11:56 Consult to Infectious Diseases Routine Consulting Provider: Teresa Calderon Reason for Consultation: Gram positive rods in blood culture X 1. Requested by Dr. Villatoro. Notified:: Service Spoke with:: EDMUNDO Date Notified:: 05/01/18 Time Notified:: 12:17 Ordering Provider: KE 05/02/18 13:48 Consult to Hospitalist Routine Consulting Provider: Sean Alarcon Reason for Consultation: management after acute occlusion carotid artery, CVA. Notified:: Service Spoke with:: Jing Date Notified:: 05/02/18 Time Notified:: 14:14 Comments:: waiting on assignment - ML Ordering Provider: KE Brief History from admission: 47-year-old man with a past medical history of hypertension currently on Telmisartan-HCTZ presented to the hospital for evaluation of sudden loss of vision in the left eye and a sensation of seeing stars in that left eye. Patient states, secondary to a history of chronic tooth infection he was at the dental office when he first noted a transient loss of vision in the left eye associated with headache. However, later on when he was driving the transient loss of vision in the left eye return without any improvement and he had a feeling of seen*and eyes. Denies any slurred speech. There was no upper or lower extremity weakness or paresthesia. Patient states the vision change and loss was painless. He has no chest pain or shortness of breath. When he initially presented in the ED, patient has BP elevated in the range of 225/127, and states this may have been secondary to whitecoat hypertension however it improved with labetalol push x1. DS: Diagnosis Discharge Diagnosis (1) CVA (cerebrovascular accident): Status: Acute (2) Bacteremia: Status: Acute DS: Summary Mr. Ornelas is a 47-year-old male admitted for CVA with symptoms of amaurosis fugax. Symptoms have resolved. Coumadin is recommended as a therapy. Currently he is now therapeutic neurology has cleared this patient for discharge today and he is medically stable and cleared for discharge. He will follow-up with cardiology and neurology as an outpatient. INR evaluations with according to neurology have been obtained as recommended by neurology. His sas clinical programmer will be Dr. Zhao. His neurologist is Dr. Villatoro. Discharge home today. Time Spent with Patient Total time spent providing and/or coordinating discharge services: Less than 30 minutes Quality: VTE Deep Vein Thrombosis/Pulmonary Embolism Present on Admission: No Results Labs on day of discharge: Labs from last 24 hours 05/06/18 05/06/18 05/06/18 03:37 03:37 03:37 WBC 6.4 RBC 4.72 Hgb 15.6 Hct 45.2 MCV 95.8 MCH 33.1 MCHC 34.5 RDW 12.9 Plt Count 220 MPV 9.4 Neut % (Auto) 48.3 Lymph % (Auto) 36.9 [place] % (Auto) 11.5 H Eos % (Auto) 2.7 Baso % (Auto) 0.6 Neut # (Auto) 3.1 Lymph # (Auto) 2.4 [place] # (Auto) 0.7 Eos # (Auto) 0.2 Baso # (Auto) 0.0 WBC Differential . Differential Comment Auto diff final PT 20.7 H INR 2.0 APTT 75.1 H Sodium 141 Potassium 3.7 Chloride 106 Carbon Dioxide 27.7 Anion Gap 7 BUN 9 Creatinine 1.00 Estimated GFR 79 L Random Glucose 85 Calcium 9.0 Phosphorus 4.6 Magnesium 2.1 Prothrombin [id number] Mut 05/05/18 05/05/18 04/29/18 21:26 14:21 19:30 WBC RBC Hgb Hct MCV MCH MCHC RDW Plt Count MPV Neut % (Auto) Lymph % (Auto) [place] % (Auto) Eos % (Auto) Baso % (Auto) Neut # (Auto) Lymph # (Auto) [place] # (Auto) Eos # (Auto) Baso # (Auto) WBC Differential Differential Comment PT INR APTT 72.4 H 65.4 H Sodium Potassium Chloride Carbon Dioxide Anion Gap BUN Creatinine Estimated GFR Random Glucose Calcium Phosphorus Magnesium Prothrombin [id number] Mut Impressions ITS Impressions Neck CTA 04/29/18 00:00 CONCLUSION: 1. 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 2. The right carotid artery and both vertebral arteries are patent. Head CT 04/29/18 18:17 CONCLUSION: 1. No acute intracranial abnormalities. 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 Report was called by Dr. Cast to Dr. Villatoro at 6:[address] CAD 04/29/18 21:41 CONCLUSION: Physiological brain perfusion parameters with RAPID analysis as above. The decision for consideration of therapy is multi factorial and multi disciplinary relying on subjective and objective clinical data. This data is not construed or intended to be the sole determinant of treatment eligibility. Head MRI 05/02/18 00:00 CONCLUSION: 1. There is acute infarction involving the left medial temporal lobe, left external capsule, left parietal white matter, and peripheral parietal cortex. 2. Bilateral maxillary and ethmoid sinus disease. Head MRA 05/02/18 00:00 CONCLUSION: Occlusion of the left internal carotid artery with filling of the anterior and middle cerebral arteries on the left via collaterals. Neck MRA 05/02/18 00:00 CONCLUSION: Occlusion of the proximal left internal carotid artery. Percent stenosis is calculated using the diameter of the stenotic region over the diameter of the normal distal internal carotid artery Discharge Plan Discharge Disposition Patient Disposition: Discharge Home Discharge Condition Condition: Stable Discharge Order Discharge Orders: Discharge Order (Routine); Ordered 05/06/18 Ordered By: Georges Lakhani Discharge Details Anticipated Discharge Date: 05/06/18 Discharge Comment: Prescriptions transmitted to listed pharmacy. Physicians Team Primary Care Provider: UNKNOWN, Attending Provider: Georges Lakhani Other Providers: Bob Anna ; Abner Zhao ; Teresa Calderon ; Davie Crenshaw ; Bhupinder Michel ; [employer] ; Hugo Larsen ; Leilani Johnson ; Tavares Ruffin ; Gisele Sierra ; Radha Hwang ; Renee Dover Rxs /Orders / Referrals /Forms Prescriptions: New doxycycline hyclate 100 mg Capsule 100 mg PO DAILY Qty: 30 RF: 0 alprazolam [Xanax] 0.25 mg tablet 0.25 mg PO BID PRN (Reason: anxiety) Qty: 30 RF: 0 atorvastatin 80 mg Tablet 80 mg PO DAILY Qty: 30 RF: 0 warfarin [Coumadin] 3 mg tablet 3 mg PO DAILY Qty: 30 RF: 0 Continue telmisartan-hydrochlorothiazid 40-12.5 mg Tablet 1 tab PO DAILY RF: 0 tadalafil 5 mg Tablet 5 mg PO DAILY RF: 0 testosterone enanthate 50 mg/0.5 mL Auto-Injector See Label Instructions .ROUTE .COMPLEX RF: 0 Discontinued amoxicillin 500 mg Tablet 500 mg PO TID RF: 0 Ambulatory Orders / Order Sets / DME: Prothrombin Time INR (Routine) Location: Determined by Patient Ordered By: Georges Lakhani Referrals: [facility] [Other] - See Instructions (CALL THE OFFICE AFTER YOUR DISCHARGE Check INR in the morning. Follow up within 1 week) Abner Zhao MD [Physician] - See Instructions (Schedule appointment for this week.) UNKNOWN, [Primary Care Provider] - See Instructions Discharge Instructions Patient Printed Instructions: Warfarin (By mouth), Transient Ischemic Attack ( DC), Transesophageal Echocardiogram (DC) Post Discharge Care Plan Care Plan Goals: Discharge Care Plan Goals for Stroke You have been diagnosed with or have a high risk for a stroke, or a TIA ( transient ischemic attack). During a stroke, blood stops flowing to part of your brain. This can damage areas in the brain that control other parts of the body. Symptoms after a stroke depend on which part of the brain has been affected. Directions to Meet your Goals: 1. Diet: Based on your situation, your doctor will direct you to make changes in your diet. Some of the changes may include: * Reducing the amount of fat and cholesterol you eat * Don't add salt to your food. * Eat more fresh vegetables and fruits * Eat more lean proteins, such as fish, poultry, and beans and peas (legumes). Cut down on red meat & processed meats * Use low-fat dairy products * Limit vegetable oils and nut oils. Avoid any food that has hydrogenated listed in its ingredients. * Limit sweets and processed foods such as chips, cookies, and baked goods 2. Prevent Falls/Injury: You may be at risk of falling. Activity: * Keep your surrounding clutter free to help you walk more easily. * Your doctor and therapist may decide if you need an assistive device to walk safely. Shower/Bathing: * Test the water temperature with a hand or foot that was not affected by the stroke. * Use grab bars, a shower seat, a hand-held showerhead, and a long-handled brush. Getting Dressed: * Dress while sitting, starting with the affected side or limb. * Wear shirts that pull easily over your head. Wear pants or skirts with elastic waistbands. * Use zippers with loops attached to the pull tabs. 3. Lifestyle Modifications: * Take your medicines exactly as prescribed. Dont skip doses. * Begin an exercise program as directed by your doctor. You can benefit from simple activities such as walking or gardening. * Limit how much alcohol you drink. Men should have no more than 2 alcoholic drinks a day. Women should limit themselves to 1 alcoholic drink per day. * Know your cholesterol level. Follow your doctor's recommendations about how to keep cholesterol under control. * If you are a smoker, quit now. Joining a stop-smoking program will improve your chances of success. Ask your doctor for medicines or other methods to help you quit. * Learn stress management techniques to help you deal with stress in your home and work life. 4. Stroke Risk Factors: Once youve had a stroke, youre at greater risk for another one. Listed below are some other factors that can increase your risk for a stroke: * High blood pressure and High Cholesterol * Cigarette or cigar smoking * Diabetes * Carotid or other artery disease * Atrial fibrillation, atrial flutter, or other heart disease * Not being physically active * Obesity * Certain blood disorders such as sickle cell anemia * Drinking too much alcohol * Abusing street drugs * Race * Gender * Family history of stroke * Diet high in salty, fried, or greasy foods 5. Follow-up: * Keep your medical appointments. Close follow-up is important to stroke rehabilitation and recovery. * Some medicines require blood tests to check for progress or problems. Keep follow-up appointments for any blood tests ordered by your providers. Call 911 right away if you have: Weakness, tingling, or loss of feeling on one side of your face or body Sudden double vision or trouble seeing in one or both eyes Sudden trouble talking or slurred speech Trouble understanding others Sudden, severe headache Dizziness, loss of balance, or a sense of falling Blackouts or seizures F.A.S.T. is an easy way to remember the signs of stroke. When you see these signs, you know that you need to call 911 fast. F.A.S.T. stands for: * F is for face drooping. One side of the face is drooping or numb. When the person smiles, the smile is uneven. * A is for arm weakness. One arm is weak or numb. When the person lifts both arms at the same time, one arm may drift downward. * S is for speech difficulty. You may notice slurred speech or trouble speaking. The person can't repeat a simple sentence correctly when asked. * T is for time to call 911. If someone shows any of these symptoms, even if they go away, call 911 right away. Make note of the time the symptoms first appeared. Status ED Status: Left Department
[2018-05-07 15:25] LABS: Factor V Leiden Mutation Negative (Negative); Protein C Antigen 103 % (70-150); Protein C Functional 124 % (70 - 150)
== END 2018-05-06 11:16 | disposition home or self-care (01) | DRG 65 ==
LOC: PHED 15:50 → PHEDA 17:28 → N03 21:59 → N05 05-05 13:01
PROVIDERS: ADMIT Hospitalist; ATTEND Hospitalist
DX: K04.7 Periapical abscess without sinus; I65.22 Occlusion and stenosis of left carotid artery; R47.1 Dysarthria and anarthria; R47.01 Aphasia; F41.9 Anxiety disorder, unspecified; R29.704 NIHSS score 4; R29.810 Facial weakness; G45.3 Amaurosis fugax; I63.512 Cerebral infarction due to unspecified occlusion or stenosis of left middle cerebral artery; I16.1 Hypertensive emergency; I10 Essential (primary) hypertension; K05.10 Chronic gingivitis, plaque induced
CPT/HCPCS: 0042T; 70450; 70498; 70544; 70548; 70551; 70553; 76497; 76499; 80048; 80061; 80307; 81001; 81240; 81241; 81291; 82131; 82550; 82607; 82948; 82962; 83036; 83090; 83735; 84100; 84132; 84439; 84443; 84484; 85025; 85027; 85240; 85300; 85302; 85303; 85306; 85307; 85384; 85610; 85613; 85651; 85652; 85670; 85730; 86038; 86140; 86146; 86147; 86148; 86592; 86850; 86900; 86901; 87040; 87205; 87641; 90774; 92526; 92610; 93005; 93225; 93306; 93312; 93320; 93325; 94150; 96125; 96374; 97116; 97162; 97166; 97530; 99291; A9585; C8925; C8952; G0195; J1644; J2370; J3480; J7030; J7040; J7050; Q9967